=== PATIENT | female | born 1975 | race Caucasian/White ===

== ENCOUNTER → 2018-06-08 16:11 | Outpatient (CLI) | payer OTHER, SELFPAY | PROVIDERS: Family Provider Otolaryngology | DX: Z23 Encounter for immunization (principal) | CPT/HCPCS: 90471; 90686 ==

== ENCOUNTER 2018-10-06 11:28 | Emergency (ER) | payer OTHER, SELFPAY ==
[2018-10-06 11:33] VITALS: BP 114/75; PULSE 91; RESP 18; TEMP 36.6; O2SAT 100
[2018-10-06] MEDS: SODIUM CHLORIDE 0.9% 1,000 ML 1000 ML IV (12:03)
--- NOTE | 2018-10-06 12:05 | ED.ABDPAIN ---
HPI - Abdominal Pain <BALA Toro - Last Filed: 10/06/18 21:56> General Chief Complaint: Abdominal Pain Stated Complaint: PAIN BELOW STERNUM Time Seen by Provider: 10/06/18 12:04 Source: patient Mode of arrival: ambulatory Limitations: no limitations History of Present Illness HPI narrative: 43-year-old healthy female this is an everyday smoker here for complaint of a epigastric pain over the past 2 weeks. She denies any trauma to the area. She reports increased pain after eating. She does have nausea. A however no vomiting. No fevers no chills. No urinary symptoms. Last bowel movement was today and was normal. She has been tolerating p.o. intake. She states that her last alcohol intake was in July. Pain is reported as radiating into the right upper back area. MD complaint: abdominal pain Related Data Previous Rx's Medication Instructions Recorded hydrocodone-acetaminophen [[place]] 1 tab PO Q4-6H PRN #15 tab 10/06/18 ondansetron 4 mg PO BID-TID PRN #12 tab 10/06/18 Allergies Allergy/AdvReac Type Severity Reaction Status Date / Time Penicillins Allergy Intermediate Verified 10/06/18 13:20 prednisone Allergy Intermediate Verified 10/06/18 13:20 Review of Systems <BALA Toro - Last Filed: 10/06/18 21:56> Constitutional Denies chills, Denies fever(s), Denies lethargy and Denies weakness Eyes Denies change in vision, Denies eye discharge, Denies irritation and Denies loss of vision ENT Ears, Nose, Mouth, and Throat: Denies change in voice, Denies neck pain and Denies sore throat Cardiovascular Denies chest pain, Denies irregular heart rhythm, Denies lightheadedness, Denies palpitations, Denies dyspnea, Denies dyspnea on exertion and Denies orthopnea Respiratory Denies cough, Denies dyspnea, Denies dyspnea on exertion and Denies wheezing Gastrointestinal Gastrointestinal: Reports abdominal pain, Reports nausea and Denies vomiting Genitourinary Denies hematuria, Denies flank pain, Denies urinary incontinence and Denies urinary urgency Musculoskeletal Denies neck pain Integumentary/Breasts Denies pruritus, Denies erythema, Denies rash and Denies wounds Neurologic Denies confusion, Denies loss of vision and Denies weakness Psychiatric Denies anxiety, Denies confusion, Denies depression, Denies homicidal ideation and Denies suicidal ideation Endocrine Denies palpitations Hematologic/Lymphatic Denies easy bruising Allergic/Immunologic Denies wheezing PFSH <BALA Toro - Last Filed: 10/06/18 21:56> Social History Smoking Status: Current every day smoker Social History Smoking Status: Current every day smoker Exam <BALA Toro - Last Filed: 10/06/18 21:56> Initial Vital Signs Initial Vital Signs: Vital Signs Temperature 97.9 F 10/06/18 11:33 Pulse Rate 91 H 10/06/18 11:33 Respiratory Rate 18 10/06/18 11:33 Blood Pressure 114/75 10/06/18 11:33 Pulse Oximetry 100 10/06/18 11:33 Const General: cooperative and well developed Nutritional Appearance: well nourished Orientation: alert, awake, oriented x3 and not confused HENKY Mouth: oral mucosae normal and moist mucous membranes Eyes Conjunctivae: conjunctivae normal Sclera: sclerae normal Pupils: PERRL EOM: EOM intact bilaterally Resp Effort & Inspection: normal respiratory effort, able to speak in complete sentences, no respiratory distress and no use of accessory muscles Auscultation: clear to auscultation bilaterally, no rales, no rhonchi and no wheezes Cardio Rate: regular rate Rhythm: regular rhythm Heart Sounds: no click, no gallops, no murmurs and no rubs Pulses: normal peripheral pulses GI Inspection: non-distended Palpation: soft, no hepatosplenomegaly, No guarding, No pulsatile mass and tender ( Tenderness to epigastric area) Auscultation: normal bowel sounds General: No CVA tenderness Skin General: no rashes or lesions noted, No jaundice and No petechiae Neuro General: alert, oriented x3, gait normal and no focal motor deficits Speech: speech normal <Jesus Richard DO - Last Filed: 10/07/18 18:31> Initial Vital Signs Initial Vital Signs: Vital Signs Temperature 97.9 F 10/06/18 11:33 Pulse Rate 91 H 10/06/18 11:33 Respiratory Rate 18 10/06/18 11:33 Blood Pressure 114/75 10/06/18 11:33 Pulse Oximetry 100 10/06/18 11:33 Course <BALA Toro - Last Filed: 10/06/18 21:56> Orders Ordered: Discontinued Medications Sodium Chloride (Normal Saline 0.9%) 1,000 mls @ 1,000 mls/hr IV BOLUS ONE Stop: 10/06/18 12:43 Last Infusion: 10/06/18 13:20 Dose: 0 mls/hr Admin: 10/06/18 12:03 Dose: 1,000 mls/hr Vital Signs - 8 hr 10/06/18 11:33 Temperature 97.9 F Pulse Rate 91 H Respiratory Rate 18 Blood Pressure 114/75 Pulse Oximetry 100 <Jesus Richard DO - Last Filed: 10/07/18 18:31> Orders Ordered: Discontinued Medications Sodium Chloride (Normal Saline 0.9%) 1,000 mls @ 1,000 mls/hr IV BOLUS ONE Stop: 10/06/18 12:43 Last Infusion: 10/06/18 13:20 Dose: 0 mls/hr Admin: 10/06/18 12:03 Dose: 1,000 mls/hr Vital Signs - 8 hr 10/06/18 11:33 Temperature 97.9 F Pulse Rate 91 H Respiratory Rate 18 Blood Pressure 114/75 Pulse Oximetry 100 MDM - Abdominal Pain <BALA Toro - Last Filed: 10/06/18 21:56> Lab Data Result diagrams: 10/06/18 11:55 10/06/18 11:55 Lab Results 10/06/18 10/06/18 10/06/18 Range/Units 11:55 11:55 12:01 WBC 9.4 (4.5-11.0) X10^3/uL RBC 4.67 (4.0-5.2) X10^6/uL Hgb 14.2 (12.0-16.0) g/dL Hct 41.9 (36-46) % MCV 89.7 (80-100) fL MCH 30.5 (26-34) PG MCHC 34.0 (30-36) % RDW 13.2 (11.6-14.8) % Plt Count 292 (150-400) X10^3/uL Neut % (Auto) 69.4 (50-75) % Lymph % (Auto) 21.1 L (25-40) % [place] % (Auto) 6.6 (3-14) % Eos % (Auto) 2.1 (2-4) % Baso % (Auto) 0.8 (0-2) % Neut # (Auto) 6500 (1473-2915) /uL Lymph # (Auto) 2000 (6356-9628) /uL [place] # (Auto) 600 (0-900) /uL Eos # (Auto) 200 (0-450) /uL Baso # (Auto) 100 (0-100) /uL Sodium 140 (137-145) mmol/L Potassium 3.4 (3.4-5.1) mmol/L Chloride 103 (98-107) mmol/L Carbon Dioxide 28 (22-32) mmol/L BUN 17 (7-17) mg/dL Creatinine 0.70 (0.52-1.04) mg/dL Estimated GFR > 60.0 (>60) mL/min BUN/Creatinine Ratio 24.3 H (6-22) Glucose 57 L (70-100) mg/dL Calcium 9.3 (8.4-10.2) mg/dL Total Bilirubin 0.3 (0.2-1.3) mg/dL AST 22 (14-36) IU/L ALT 36 (9-52) IU/L Alkaline Phosphatase 73 (38-126) U/L Total Protein 7.4 (6.3-8.2) g/dL Albumin 4.4 (3.5-5.0) g/dL Globulin 3.0 (1.7-4.1) g/dL Albumin/Globulin Ratio 1.5 (1.0-2.8) Lipase 712 H (23-300) U/L Urine RBC 0-1/hpf (0-5/HPF) Urine WBC None seen (0-5/HPF) Ur Squamous Epith Cells 1-5 /hpf Urine Bacteria None seen (None) Ur Culture Indicated? Cult not indicated Point of care testing: Point of Care Testing Test Results Negative Urine Dip Bedside Urine Glucose Negative Bedside Urine Bilirubin - Negative Bedside Urine Ketone - Negative Urine Specific [place] 1.010 Bedside Urine Occult Blood +/- Bedside Urine pH 6.5 Bedside Urine Protein - Negative Bedside Urine Urobilinogen - Negative Bedside Urine Nitrite - Negative Bedside Urine Leukocytes - Negative Esterase Imaging Data US - abdomen: Radiologist's impression: [address] [address] Ultrasound Report Signed Patient: Hillary Malhotra [facility]#: [id number] : 1975Acct:[id number] Age/Sex: 43 / FDate of Service: 10/06/18 Loc: ED Accession Number: [id number] Procedure: US abdomen complete Ordering Provider: Zane Martinez PROCEDURE: US ABDOMEN COMPLETE INDICATIONS: EPIGASTRIC PAIN TECHNIQUE: Real-time scanning was performed of the abdominal and retroperitoneal organs, with image documentation. COMPARISON: None. FINDINGS: Liver: Liver is normal in size and homogeneous in echotexture. Gallbladder: Gallbladder is sonographically normal. No gallstones. No gallbladder wall thickening. No pericholecystic fluid. No sonographic Britt sign. Biliary ducts: Intrahepatic bile ducts are non-dilated. Extrahepatic bile duct caliber measures 1.7 mm. Normal is 6-7 mm or less in diameter, or 10 mm or less post-cholecystectomy. Pancreas: Visualized portions of the pancreas are sonographically normal. Spleen: Spleen is normal in size and homogeneous in echotexture. Kidneys: Kidneys are normal in size and echotexture. Right kidney measures 11.0 cm long; left kidney measures 10.8 cm long. No hydronephrosis or nephrolithiasis. No solid masses. Aorta: Visualized aorta is normal in caliber at less than 3 cm. Iliacs: Proximal common iliac arteries are normal in caliber at less than 2.5 cm. IVC: Intrahepatic inferior vena cava is patent. Miscellaneous: No free abdominal fluid. IMPRESSION: Normal abdominal sonogram. Dictated by: Omaira Gao MD, PhD on 10/06/2018 at 12:44 Approved by: Omaira Gao MD, PhD on 10/06/2018 at 12:45 [facility] Narrative Medical decision making narrative: CBC was obtained and was unremarkable. Chem panel shows elevated lipase at 700. abdominal ultrasound was obtained and was unremarkable. AST and ALT were unremarkable. alk-phos was normal. Signs and symptoms presents as acute pancreatitis. She is able to tolerate p.o. intake. will treat outpatient with clear liquid diet pain control and nausea medication. She is encouraged to follow up with primary care provider in the next day or 2 for re-evaluation. For any worsening symptoms return to the emergency room. <Jesus Richard, DO - Last Filed: 10/07/18 18:31> Lab Data Lab Results 10/06/18 10/06/18 10/06/18 Range/Units 11:55 11:55 12:01 WBC 9.4 (4.5-11.0) X10^3/uL RBC 4.67 (4.0-5.2) X10^6/uL Hgb 14.2 (12.0-16.0) g/dL Hct 41.9 (36-46) % MCV 89.7 (80-100) fL MCH 30.5 (26-34) PG MCHC 34.0 (30-36) % RDW 13.2 (11.6-14.8) % Plt Count 292 (150-400) X10^3/uL Neut % (Auto) 69.4 (50-75) % Lymph % (Auto) 21.1 L (25-40) % [place] % (Auto) 6.6 (3-14) % Eos % (Auto) 2.1 (2-4) % Baso % (Auto) 0.8 (0-2) % Neut # (Auto) 6500 (8235-6153) /uL Lymph # (Auto) 2000 (8487-6302) /uL [place] # (Auto) 600 (0-900) /uL Eos # (Auto) 200 (0-450) /uL Baso # (Auto) 100 (0-100) /uL Sodium 140 (137-145) mmol/L Potassium 3.4 (3.4-5.1) mmol/L Chloride 103 (98-107) mmol/L Carbon Dioxide 28 (22-32) mmol/L BUN 17 (7-17) mg/dL Creatinine 0.70 (0.52-1.04) mg/dL Estimated GFR > 60.0 (>60) mL/min BUN/Creatinine Ratio 24.3 H (6-22) Glucose 57 L (70-100) mg/dL Calcium 9.3 (8.4-10.2) mg/dL Total Bilirubin 0.3 (0.2-1.3) mg/dL AST 22 (14-36) IU/L ALT 36 (9-52) IU/L Alkaline Phosphatase 73 (38-126) U/L Total Protein 7.4 (6.3-8.2) g/dL Albumin 4.4 (3.5-5.0) g/dL Globulin 3.0 (1.7-4.1) g/dL Albumin/Globulin Ratio 1.5 (1.0-2.8) Lipase 712 H (23-300) U/L Urine RBC 0-1/hpf (0-5/HPF) Urine WBC None seen (0-5/HPF) Ur Squamous Epith Cells 1-5 /hpf Urine Bacteria None seen (None) Ur Culture Indicated? Cult not indicated Point of care testing: Point of Care Testing Test Results Negative Urine Dip Bedside Urine Glucose Negative Bedside Urine Bilirubin - Negative Bedside Urine Ketone - Negative Urine Specific [place] 1.010 Bedside Urine Occult Blood +/- Bedside Urine pH 6.5 Bedside Urine Protein - Negative Bedside Urine Urobilinogen - Negative Bedside Urine Nitrite - Negative Bedside Urine Leukocytes - Negative Esterase Discharge Plan Departure Patient Disposition: Home Clinical Impression: Acute pancreatitis Qualifiers: Pancreatitis type: other Acute pancreatitis complication: no infection or necrosis Qualified Code(s): K85.80 - Other acute pancreatitis without necrosis or infection Discharge Date/Time: 10/06/18 13:25 Interventions: ED Discharge Assessment Last Done: 10/06/18 13:24 Instructions: DI for Pancreatitis Activity Restrictions/Additional Instructions: laboratory results show increased lipase indicating acute pancreatitis. other laboratory results were unremarkable. Ultrasound of the abdomen was obtained and was negative for any acute findings. Clear liquid diet. follow up with her primary care provider in the next day or 2 for re-evaluation. [place] is prescribed for pain and use as directed. Zofran is prescribed to help with any nausea. For any worsening symptoms return to the emergency room. Prescriptions: New hydrocodone-acetaminophen [[place]] 5-325 mg tablet 1 tab PO Q4-6H PRN (Reason: pain) Qty: 15 RF: 0 ondansetron 4 mg tablet,disintegrating 4 mg PO BID-TID PRN (Reason: nausea and vomiting) Qty: 12 RF: 0 Referrals: [employer] [Provider Group] <Jesus Richard DO - Last Filed: 10/07/18 18:31> Cosign ED Attending Ekaterina Attestation: I was available for consultation during this patient's emergency department encounter
--- NOTE | 2018-10-06 12:11 | DI.US.S_ITS ---
PROCEDURE: US ABDOMEN COMPLETE INDICATIONS: EPIGASTRIC PAIN TECHNIQUE: Real-time scanning was performed of the abdominal and retroperitoneal organs, with image documentation. COMPARISON: None. FINDINGS: Liver: Liver is normal in size and homogeneous in echotexture. Gallbladder: Gallbladder is sonographically normal. No gallstones. No gallbladder wall thickening. No pericholecystic fluid. No sonographic Britt sign. Biliary ducts: Intrahepatic bile ducts are non-dilated. Extrahepatic bile duct caliber measures 1.7 mm. Normal is 6-7 mm or less in diameter, or 10 mm or less post-cholecystectomy. Pancreas: Visualized portions of the pancreas are sonographically normal. Spleen: Spleen is normal in size and homogeneous in echotexture. Kidneys: Kidneys are normal in size and echotexture. Right kidney measures 11.0 cm long; left kidney measures 10.8 cm long. No hydronephrosis or nephrolithiasis. No solid masses. Aorta: Visualized aorta is normal in caliber at less than 3 cm. Iliacs: Proximal common iliac arteries are normal in caliber at less than 2.5 cm. IVC: Intrahepatic inferior vena cava is patent. Miscellaneous: No free abdominal fluid. IMPRESSION: Normal abdominal sonogram. Dictated by: Omaira Gao MD, PhD on 10/06/2018 at 12:44 Approved by: Omaira Gao MD, PhD on 10/06/2018 at 12:45
[2018-10-06 12:14] LABS: Add Manual Diff / Slide Review NO; Basophils Absolute Auto 100 /uL (0-100); Basophils Percent Auto 0.8 % (0-2); Eosinophils Absolute Auto 200 /uL (0-450); Eosinophils Percent Auto 2.1 % (2-4); Hematocrit 41.9 % (36-46); Hemoglobin 14.2 g/dL (12.0-16.0); Lymphocytes Absolute Auto 2000 /uL (1100-4500); Lymphocytes Percent Auto 21.1 % (25-40); Mean Corpuscular Hemoglobin 30.5 PG (26-34); Mean Corpuscular Volume 89.7 fL (80-100); Monocytes Absolute Auto 600 /uL (0-900); Monocytes Percent Auto 6.6 % (3-14); Neutrophils Absolute Auto 6500 /uL (1500-7000); Neutrophils Percent Auto 69.4 % (50-75); Platelet Count 292 X10^3/uL (150-400); Red Blood Cell Count 4.67 X10^6/uL (4.0-5.2); Red Cell Distribution Width 13.2 % (11.6-14.8); White Blood Cell Count 9.4 X10^3/uL (4.5-11.0)
[2018-10-06 12:16] LABS: Alanine Aminotransferase 36 IU/L (9-52); Albumin 4.4 g/dL (3.5-5.0); Albumin Globulin Ratio 1.5 (1.0-2.8); Alkaline Phosphatase 73 U/L (38-126); Aspartate Aminotransferase 22 IU/L (14-36); BUN Creatinine Ratio 24.3 (6-22); Bilirubin Total 0.3 mg/dL (0.2-1.3); Blood Urea Nitrogen 17 mg/dL (7-17); Calcium 9.3 mg/dL (8.4-10.2); Carbon Dioxide 28 mmol/L (22-32); Chloride 103 mmol/L (98-107); Estimated Glomerular Filt Rate > 60.0 mL/min (>60); Glucose 57 mg/dL (70-100); HEMOLYSIS < 15 (0-50); Lipase 712 U/L (23-300); Potassium 3.4 mmol/L (3.4-5.1); Sodium 140 mmol/L (137-145); Total Protein 7.4 g/dL (6.3-8.2)
[2018-10-06 12:28] LABS: Bacteria Urine None Seen; WBC Urine None Seen (0-5/HPF)
[2018-10-06 12:37] LABS: Culture Indicated Urine Cult Not Indicated; RBC Urine 0-1/HPF (0-5/HPF); Squamous Epithelial Cell Urine 1-5 /HPF
--- NOTE | 2018-10-06 12:59 | ED_ITS ---
HPI - Abdominal Pain <BALA Toro - Last Filed: 10/06/18 21:56> General Chief Complaint: Abdominal Pain Stated Complaint: PAIN BELOW STERNUM Time Seen by Provider: 10/06/18 12:04 Source: patient Mode of arrival: ambulatory Limitations: no limitations History of Present Illness HPI narrative: 43-year-old healthy female this is an everyday smoker here for complaint of a epigastric pain over the past 2 weeks. She denies any trauma to the area. She reports increased pain after eating. She does have nausea. A however no vomiting. No fevers no chills. No urinary symptoms. Last bowel movement was today and was normal. She has been tolerating p.o. intake. She states that her last alcohol intake was in July. Pain is reported as radiating into the right upper back area. MD complaint: abdominal pain Related Data Previous Rx's Medication Instructions Recorded hydrocodone-acetaminophen [[place]] 1 tab PO Q4-6H PRN #15 tab 10/06/18 ondansetron 4 mg PO BID-TID PRN #12 tab 10/06/18 Allergies Allergy/AdvReac Type Severity Reaction Status Date / Time Penicillins Allergy Intermediate Verified 10/06/18 13:20 prednisone Allergy Intermediate Verified 10/06/18 13:20 Review of Systems <BALA Toro - Last Filed: 10/06/18 21:56> Constitutional Denies chills, Denies fever(s), Denies lethargy and Denies weakness Eyes Denies change in vision, Denies eye discharge, Denies irritation and Denies loss of vision ENT Ears, Nose, Mouth, and Throat: Denies change in voice, Denies neck pain and Denies sore throat Cardiovascular Denies chest pain, Denies irregular heart rhythm, Denies lightheadedness, Denies palpitations, Denies dyspnea, Denies dyspnea on exertion and Denies orthopnea Respiratory Denies cough, Denies dyspnea, Denies dyspnea on exertion and Denies wheezing Gastrointestinal Gastrointestinal: Reports abdominal pain, Reports nausea and Denies vomiting Genitourinary Denies hematuria, Denies flank pain, Denies urinary incontinence and Denies urinary urgency Musculoskeletal Denies neck pain Integumentary/Breasts Denies pruritus, Denies erythema, Denies rash and Denies wounds Neurologic Denies confusion, Denies loss of vision and Denies weakness Psychiatric Denies anxiety, Denies confusion, Denies depression, Denies homicidal ideation and Denies suicidal ideation Endocrine Denies palpitations Hematologic/Lymphatic Denies easy bruising Allergic/Immunologic Denies wheezing PFSH <BALA Toro - Last Filed: 10/06/18 21:56> Social History Smoking Status: Current every day smoker Social History Smoking Status: Current every day smoker Exam <BALA Toro - Last Filed: 10/06/18 21:56> Initial Vital Signs Initial Vital Signs: Vital Signs Temperature 97.9 F 10/06/18 11:33 Pulse Rate 91 H 10/06/18 11:33 Respiratory Rate 18 10/06/18 11:33 Blood Pressure 114/75 10/06/18 11:33 Pulse Oximetry 100 10/06/18 11:33 Const General: cooperative and well developed Nutritional Appearance: well nourished Orientation: alert, awake, oriented x3 and not confused HENTN Mouth: oral mucosae normal and moist mucous membranes Eyes Conjunctivae: conjunctivae normal Sclera: sclerae normal Pupils: PERRL EOM: EOM intact bilaterally Resp Effort & Inspection: normal respiratory effort, able to speak in complete sentences, no respiratory distress and no use of accessory muscles Auscultation: clear to auscultation bilaterally, no rales, no rhonchi and no wheezes Cardio Rate: regular rate Rhythm: regular rhythm Heart Sounds: no click, no gallops, no murmurs and no rubs Pulses: normal peripheral pulses GI Inspection: non-distended Palpation: soft, no hepatosplenomegaly, No guarding, No pulsatile mass and tend er ( Tenderness to epigastric area) Auscultation: normal bowel sounds General: No CVA tenderness Skin General: no rashes or lesions noted, No jaundice and No petechiae Neuro General: alert, oriented x3, gait normal and no focal motor deficits Speech: speech normal <Jesus Richard DO - Last Filed: 10/07/18 18:31> Initial Vital Signs Initial Vital Signs: Vital Signs Temperature 97.9 F 10/06/18 11:33 Pulse Rate 91 H 10/06/18 11:33 Respiratory Rate 18 10/06/18 11:33 Blood Pressure 114/75 10/06/18 11:33 Pulse Oximetry 100 10/06/18 11:33 Course <BALA Toro - Last Filed: 10/06/18 21:56> Orders Ordered: Discontinued Medications Sodium Chloride (Normal Saline 0.9%) 1,000 mls @ 1,000 mls/hr IV BOLUS ONE Stop: 10/06/18 12:43 Last Infusion: 10/06/18 13:20 Dose: 0 mls/hr Admin: 10/06/18 12:03 Dose: 1,000 mls/hr Vital Signs - 8 hr 10/06/18 11:33 Temperature 97.9 F Pulse Rate 91 H Respiratory Rate 18 Blood Pressure 114/75 Pulse Oximetry 100 <Jesus Richard DO - Last Filed: 10/07/18 18:31> Orders Ordered: Discontinued Medications Sodium Chloride (Normal Saline 0.9%) 1,000 mls @ 1,000 mls/hr IV BOLUS ONE Stop: 10/06/18 12:43 Last Infusion: 10/06/18 13:20 Dose: 0 mls/hr Admin: 10/06/18 12:03 Dose: 1,000 mls/hr Vital Signs - 8 hr 10/06/18 11:33 Temperature 97.9 F Pulse Rate 91 H Respiratory Rate 18 Blood Pressure 114/75 Pulse Oximetry 100 MDM - Abdominal Pain <BALA Toro - Last Filed: 10/06/18 21:56> Lab Data Result diagrams: 10/06/18 11:55 10/06/18 11:55 Lab Results 10/06/18 10/06/18 10/06/18 Range/Units 11:55 11:55 12:01 WBC 9.4 (4.5-11.0) X10^3/uL RBC 4.67 (4.0-5.2) X10^6/uL Hgb 14.2 (12.0-16.0) g/dL Hct 41.9 (36-46) % MCV 89.7 (80-100) fL MCH 30.5 (26-34) PG MCHC 34.0 (30-36) % RDW 13.2 (11.6-14.8) % Plt Count 292 (150-400) X10^3/uL Neut % (Auto) 69.4 (50-75) % Lymph % (Auto) 21.1 L (25-40) % [place] % (Auto) 6.6 (3-14) % Eos % (Auto) 2.1 (2-4) % Baso % (Auto) 0.8 (0-2) % Neut # (Auto) 6500 (8604-7330) /uL Lymph # (Auto) 2000 (9211-0400) /uL [place] # (Auto) 600 (0-900) /uL Eos # (Auto) 200 (0-450) /uL Baso # (Auto) 100 (0-100) /uL Sodium 140 (137-145) mmol/L Potassium 3.4 (3.4-5.1) mmol/L Chloride 103 (98-107) mmol/L Carbon Dioxide 28 (22-32) mmol/L BUN 17 (7-17) mg/dL Creatinine 0.70 (0.52-1.04) mg/dL Estimated GFR > 60.0 (>60) mL/min BUN/Creatinine Ratio 24.3 H (6-22) Glucose 57 L (70-100) mg/dL Calcium 9.3 (8.4-10.2) mg/dL Total Bilirubin 0.3 (0.2-1.3) mg/dL AST 22 (14-36) IU/L ALT 36 (9-52) IU/L Alkaline Phosphatase 73 (38-126) U/L Total Protein 7.4 (6.3-8.2) g/dL Albumin 4.4 (3.5-5.0) g/dL Globulin 3.0 (1.7-4.1) g/dL Albumin/Globulin Ratio 1.5 (1.0-2.8) Lipase 712 H (23-300) U/L Urine RBC 0-1/hpf (0-5/HPF) Urine WBC None seen (0-5/HPF) Ur Squamous Epith Cells 1-5 /hpf Urine Bacteria None seen (None) Ur Culture Indicated? Cult not indicated Point of care testing: Point of Care Testing Test Results Negative Urine Dip Bedside Urine Glucose Negative Bedside Urine Bilirubin - Negative Bedside Urine Ketone - Negative Urine Specific [place] 1.010 Bedside Urine Occult Blood +/- Bedside Urine pH 6.5 Bedside Urine Protein - Negative Bedside Urine Urobilinogen - Negative Bedside Urine Nitrite - Negative Bedside Urine Leukocytes - Negative Esterase Imaging Data US - abdomen: Radiologist's impression: [address] [address] Ultrasound Report Signed Patient: Hillary Malhotra MMR#: [id number] : 1975Acct:[id number] Age/Sex: 43 / FDate of Service: 10/06/18 Loc: ED Accession Number: [id number] Procedure: US abdomen complete Ordering Provider: Zane Martinez PROCEDURE: US ABDOMEN COMPLETE INDICATIONS: EPIGASTRIC PAIN TECHNIQUE: Real-time scanning was performed of the abdominal and retroperitoneal organs, with image documentation. COMPARISON: None. FINDINGS: Liver: Liver is normal in size and homogeneous in echotexture. Gallbladder: Gallbladder is sonographically normal. No gallstones. No gallbladder wall thickening. No pericholecystic fluid. No sonographic Britt sign. Biliary ducts: Intrahepatic bile ducts are non-dilated. Extrahepatic bile duct caliber measures 1.7 mm. Normal is 6-7 mm or less in diameter, or 10 mm or less post-cholecystectomy. Pancreas: Visualized portions of the pancreas are sonographically normal. Spleen: Spleen is normal in size and homogeneous in echotexture. Kidneys: Kidneys are normal in size and echotexture. Right kidney measures 11.0 cm long; left kidney measures 10.8 cm long. No hydronephrosis or nephrolithiasis. No solid masses. Aorta: Visualized aorta is normal in caliber at less than 3 cm. Iliacs: Proximal common iliac arteries are normal in caliber at less than 2.5 cm. IVC: Intrahepatic inferior vena cava is patent. Miscellaneous: No free abdominal fluid. IMPRESSION: Normal abdominal sonogram. Dictated by: Omaira Gao MD, PhD on 10/06/2018 at 12:44 Approved by: Omaira Gao MD, PhD on 10/06/2018 at 12:45 [facility] Narrative Medical decision making narrative: CBC was obtained and was unremarkable. Chem panel shows elevated lipase at 700. abdominal ultrasound was obtained and was unremarkable. AST and ALT were unremarkable. alk-phos was normal. Signs and symptoms presents as acute pancreatitis. She is able to tolerate p.o. intake. will treat outpatient with clear liquid diet pain control and nausea medication. She is encouraged to follow up with primary care provider in the next day or 2 for re-evaluation. For any worsening symptoms return to the emergency room. <Jesus Richard, DO - Last Filed: 10/07/18 18:31> Lab Data Lab Results 10/06/18 10/06/18 10/06/18 Range/Units 11:55 11:55 12:01 WBC 9.4 (4.5-11.0) X10^3/uL RBC 4.67 (4.0-5.2) X10^6/uL Hgb 14.2 (12.0-16.0) g/dL Hct 41.9 (36-46) % MCV 89.7 (80-100) fL MCH 30.5 (26-34) PG MCHC 34.0 (30-36) % RDW 13.2 (11.6-14.8) % Plt Count 292 (150-400) X10^3/uL Neut % (Auto) 69.4 (50-75) % Lymph % (Auto) 21.1 L (25-40) % [place] % (Auto) 6.6 (3-14) % Eos % (Auto) 2.1 (2-4) % Baso % (Auto) 0.8 (0-2) % Neut # (Auto) 6500 (1870-8564) /uL Lymph # (Auto) 2000 (6657-2257) /uL [place] # (Auto) 600 (0-900) /uL Eos # (Auto) 200 (0-450) /uL Baso # (Auto) 100 (0-100) /uL Sodium 140 (137-145) mmol/L Potassium 3.4 (3.4-5.1) mmol/L Chloride 103 (98-107) mmol/L Carbon Dioxide 28 (22-32) mmol/L BUN 17 (7-17) mg/dL Creatinine 0.70 (0.52-1.04) mg/dL Estimated GFR > 60.0 (>60) mL/min BUN/Creatinine Ratio 24.3 H (6-22) Glucose 57 L (70-100) mg/dL Calcium 9.3 (8.4-10.2) mg/dL Total Bilirubin 0.3 (0.2-1.3) mg/dL AST 22 (14-36) IU/L ALT 36 (9-52) IU/L Alkaline Phosphatase 73 (38-126) U/L Total Protein 7.4 (6.3-8.2) g/dL Albumin 4.4 (3.5-5.0) g/dL Globulin 3.0 (1.7-4.1) g/dL Albumin/Globulin Ratio 1.5 (1.0-2.8) Lipase 712 H (23-300) U/L Urine RBC 0-1/hpf (0-5/HPF) Urine WBC None seen (0-5/HPF) Ur Squamous Epith Cells 1-5 /hpf Urine Bacteria None seen (None) Ur Culture Indicated? Cult not indicated Point of care testing: Point of Care Testing Test Results Negative Urine Dip Bedside Urine Glucose Negative Bedside Urine Bilirubin - Negative Bedside Urine Ketone - Negative Urine Specific [place] 1.010 Bedside Urine Occult Blood +/- Bedside Urine pH 6.5 Bedside Urine Protein - Negative Bedside Urine Urobilinogen - Negative Bedside Urine Nitrite - Negative Bedside Urine Leukocytes - Negative Esterase Discharge Plan Departure Patient Disposition: Home Clinical Impression: Acute pancreatitis Qualifiers: Pancreatitis type: other Acute pancreatitis complication: no infection or necrosis Qualified Code(s): K85.80 - Other acute pancreatitis without necrosis or infection Discharge Date/Time: 10/06/18 13:25 Interventions: ED Discharge Assessment Last Done: 10/06/18 13:24 Instructions: DI for Pancreatitis Activity Restrictions/Additional Instructions: laboratory results show increased lipase indicating acute pancreatitis. other laboratory results were unremarkable. Ultrasound of the abdomen was obtained and was negative for any acute findings. Clear liquid diet. follow up with her primary care provider in the next day or 2 for re-evaluation. [place] is prescribed for pain and use as directed. Zofran is prescribed to help with any nausea. For any worsening symptoms return to the emergency room. Prescriptions: New hydrocodone-acetaminophen [[place]] 5-325 mg tablet 1 tab PO Q4-6H PRN (Reason: pain) Qty: 15 RF: 0 ondansetron 4 mg tablet,disintegrating 4 mg PO BID-TID PRN (Reason: nausea and vomiting) Qty: 12 RF: 0 Referrals: [facility] [Provider Group] <Jesus Richard DO - Last Filed: 10/07/18 18:31> Cosign ED Attending Ekaterina Attestation: I was available for consultation during this patient's emergency department encounter
[2018-10-06 13:24] VITALS: BP 105/63; PULSE 61; TEMP 36.4; O2SAT 98
== END 2018-10-06 13:25 | disposition home or self-care (01) ==
PROVIDERS: Emergency Medicine; Emergency Provider Nurse Practitioner Family
DX: K85.80 Other acute pancreatitis without necrosis or infection (principal)
CPT/HCPCS: 36591; 76700; 80053; 81003; 81015; 81025; 83690; 85025; 96360; 99283; 99284

== ENCOUNTER → 2018-12-13 13:42 | Outpatient (CLI) | payer OTHER, SELFPAY ==
[2018-12-13 15:39] LABS: Alanine Aminotransferase 31 IU/L (9-52); Albumin 4.2 g/dL (3.5-5.0); Albumin Globulin Ratio 1.9 (1.0-2.8); Alkaline Phosphatase 62 U/L (38-126); Aspartate Aminotransferase 21 IU/L (14-36); Bilirubin Total 0.2 mg/dL (0.2-1.3); Bilirubin Unconjugated 0.2 mg/dL (0.0-1.1); Globulin 2.2 g/dL (1.7-4.1); HEMOLYSIS < 15 (0-50); Lipase 585 U/L (23-300); Total Protein 6.4 g/dL (6.3-8.2)
[2018-12-16 09:27] LABS: IgG Subclass 1 454 mg/dL (382-929); IgG Subclass 2 263 mg/dL (241-700); IgG Subclass 3 42 mg/dL (22-178); IgG Subclass 4 14.7 mg/dL (4.0-86.0); IgG Total 817 mg/dL (694-1618)
== END ==
PROVIDERS: PCP Family Medicine; Visit Provider Internal Medicine Gastroenterology
DX: R74.8 Abnormal levels of other serum enzymes (principal); R10.13 Epigastric pain
CPT/HCPCS: 36415; 80076; 82784; 82787; 83690

== ENCOUNTER 2018-12-31 05:03 | Inpatient (IN) | payer OTHER, SELFPAY ==
[2018-12-31] VITALS (7 sets, daily range): BP systolic 92–109; BP diastolic 53–68; PULSE 55–83; RESP 16–18; TEMP 36.4–36.9; O2SAT 98–100; BMI 22.1; BMI 22.8
--- NOTE | 2018-12-31 05:21 | DI.US.S_ITS ---
PROCEDURE: US ABDOMEN LIMITED INDICATIONS: SEVERE EPIGASTRIC PAIN TECHNIQUE: Real-time focused scanning was performed of the abdomen, with image documentation. COMPARISON: None. FINDINGS: Image portions of the liver appear to be within normal limits. The gallbladder is within normal limits without cholelithiasis or gallbladder wall inflammation. The common bile duct is within normal limits and measures approximately 2 mm in diameter. Mild prominence of the main pancreatic duct is identified within the body and tail, not well characterized. Otherwise, the pancreas is unremarkable. There is a focus of decreased echogenicity within the region of the head of the pancreas, which is not well evaluated. The right kidney is not adequately imaged. The abdominal aorta and inferior vena cava were also not adequately imaged. IMPRESSION: 1. Questionable pancreatic lesion with prominence of the main pancreatic duct. Contrast enhanced CT of the abdomen is recommended for further evaluation. 2. No cholelithiasis or acute cholecystitis. 3. No free fluid within the abdomen. Note: The preliminary [facility] report and the final report are concordant. Dictated by: Sg Mcdonough M.D. on 12/31/2018 at 13:36 Approved by: Sg Mcdonough M.D. on 12/31/2018 at 13:45
--- NOTE | 2018-12-31 05:23 | ED.ABDPAIN ---
HPI - Abdominal Pain <Ciro Roberson DO - Last Filed: 12/31/18 23:41> General Chief Complaint: Abdominal Pain Stated Complaint: pancreatitis Time Seen by Provider: 12/31/18 05:05 Source: patient Mode of arrival: ambulatory Limitations: no limitations History of Present Illness HPI narrative: 43F smoker with history of epigastric pain presents with upper abdominal pain and radiation to her back. She denies fever but has had chills and nausea. Pain is worse with food and drink. She has had a history of abnormal lipase but denies much in the way of alcohol or gallbladder disease. She has been seen and evaluated under similar circumstances as recently as September and had advanced imaging without any true or obvious etiology her pancreatic enzyme elevation Related Data Previous Rx's Medication Instructions Recorded hydrocodone-acetaminophen [Prole] 1 tab PO Q4-6H PRN #15 tab 10/06/18 ondansetron 4 mg PO BID-TID PRN #12 tab 10/06/18 [id number] [Creon] 1 cap PO TID #90 cap 01/07/19 Allergies Allergy/AdvReac Type Severity Reaction Status Date / Time Penicillins Allergy Intermediate Verified 10/06/18 13:20 prednisone Allergy Intermediate Verified 10/06/18 13:20 Review of Systems <Ciro Roberson DO - Last Filed: 12/31/18 23:41> Review of Systems ROS Unobtainable: All systems reviewed & are unremarkable except as noted in HPI and below Constitutional Denies chills, Denies fever(s), Denies lethargy and Denies weakness Eyes Denies change in vision, Denies eye discharge, Denies irritation and Denies loss of vision ENT Ears, Nose, Mouth, and Throat: Denies change in voice, Denies neck pain and Denies sore throat Cardiovascular Denies chest pain, Denies irregular heart rhythm, Denies lightheadedness, Denies palpitations, Denies dyspnea, Denies dyspnea on exertion and Denies orthopnea Respiratory Denies cough, Denies dyspnea, Denies dyspnea on exertion and Denies wheezing Gastrointestinal Gastrointestinal: Reports abdominal pain, Denies change in bowel habits, Denies diarrhea, Reports nausea and Reports vomiting Genitourinary Denies hematuria, Denies flank pain, Denies urinary incontinence and Denies urinary urgency Musculoskeletal Denies neck pain Integumentary/Breasts Denies pruritus, Denies erythema, Denies rash and Denies wounds Neurologic Denies confusion, Denies loss of vision and Denies weakness Psychiatric Denies anxiety, Denies confusion, Denies depression, Denies homicidal ideation and Denies suicidal ideation Endocrine Denies palpitations Hematologic/Lymphatic Denies easy bruising Allergic/Immunologic Denies wheezing PFSH <DO Mello Al Last Filed: 12/31/18 23:41> Social History household members: spouse Smoking Status: Current every day smoker alcohol intake: current Social History household members: spouse and children Smoking Status: Current every day smoker alcohol intake: current Exam <DO Mello Al Last Filed: 12/31/18 23:41> Narrative Exam Narrative: GENERAL: 43-year-old female, obviously uncomfortable clutching her upper abdomen HEAD: Atraumatic. Normocephalic. No temporal or scalp tenderness. EYES: Pupils equal round and reactive. Extraocular motions intact. No scleral icterus. No injection or drainage. ENT: Nose without bleeding, purulent drainage or septal hematoma. Throat without erythema, tonsillar hypertrophy or exudate. Uvula midline. Airway patent. NECK: Trachea midline. No JVD or lymphadenopathy. Supple, nontender, no meningeal signs. CARDIOVASCULAR: Regular rate and rhythm without murmurs, gallops, or rubs. RESPIRATORY: Clear to auscultation. Breath sounds equal bilaterally. No wheezes, rales, or rhonchi. GASTROINTESTINAL: Abdomen soft, severely tender in the epigastrium, nondistended. No hepato-splenomegaly, or palpable masses. No guarding. EXTREMITIES: No clubbing, cyanosis, or edema. No joint tenderness, effusion, or edema noted. BACK: Nontender without deformity or crepitance. No flank tenderness. NEURO: AOx3. SKIN: No rash or erythema. Initial Vital Signs Initial Vital Signs: Vital Signs Temperature 98.4 F 12/31/18 05:05 Pulse Rate 83 12/31/18 05:05 Respiratory Rate 16 12/31/18 05:05 Blood Pressure 109/68 12/31/18 05:05 Pulse Oximetry 99 12/31/18 05:05 <Stephany Wooten DO - Last Filed: 01/25/19 07:05> Initial Vital Signs Initial Vital Signs: Vital Signs Temperature 98.4 F 12/31/18 05:05 Pulse Rate 83 12/31/18 05:05 Respiratory Rate 16 12/31/18 05:05 Blood Pressure 109/68 12/31/18 05:05 Pulse Oximetry 99 12/31/18 05:05 Course <Ciro Roberson, DO - Last Filed: 12/31/18 23:41> Orders Ordered: Discontinued Medications Acetaminophen (Tylenol) 975 mg PO NOW ONE Stop: 01/01/19 05:32 Last Admin: 01/01/19 06:44 Dose: Not Given Acetaminophen (Tylenol) 650 mg PO NOW ONE Stop: 01/01/19 05:32 Last Admin: 01/01/19 05:53 Dose: 650 mg Acetaminophen (Tylenol) 975 mg PO Q6H PRN PRN Reason: Pain, Mild (1-3) Last Admin: 01/05/19 08:37 Dose: 975 mg Admin: 01/02/19 07:40 Dose: 975 mg Acetaminophen/Butalbital/Caffeine (Fioricet) 1 each PO Q4HR PRN PRN Reason: Headache Hydrocodone Bitart/Acetaminophen (Prole 5/325) 1 tab PO Q4HR PRN PRN Reason: Pain, Moderate (4-6) Last Admin: 01/03/19 13:29 Dose: 1 tab Admin: 01/02/19 21:59 Dose: 1 tab Lipase/Protease/Amylase (Zenpep Dr 5,000 Units) 1 cap PO TIDWM TANK Last Admin: 01/07/19 12:27 Dose: 1 cap Admin: 01/07/19 08:31 Dose: 1 cap Admin: 01/06/19 17:19 Dose: 1 cap Admin: 01/06/19 12:04 Dose: 1 cap Al Hydrox/Mg Hydrox/Simethicone 20 ml/ Lidocaine HCl 15 ml 0 ml PO NOW ONE Stop: 12/31/18 05:19 Last Admin: 12/31/18 05:39 Dose: 35 ml Docusate Sodium (Colace) 100 mg PO BID PRN PRN Reason: Constipation Last Admin: 01/05/19 09:43 Dose: 100 mg Admin: 01/02/19 04:45 Dose: 100 mg Enoxaparin Sodium (Lovenox) 40 mg SUBCUT DAILY TANK Last Admin: 01/07/19 08:32 Dose: 40 mg Admin: 01/06/19 09:56 Dose: 40 mg Admin: 01/05/19 08:37 Dose: 40 mg Admin: 01/04/19 09:58 Dose: 40 mg Admin: 01/03/19 11:07 Dose: 40 mg Admin: 01/02/19 09:19 Dose: 40 mg Hydromorphone HCl (Dilaudid) 1 mg IV NOW ONE Stop: 12/31/18 05:40 Last Admin: 12/31/18 05:40 Dose: 1 mg Sodium Chloride (Normal Saline 0.9%) 500 mls @ 1,000 mls/hr IV BOLUS ONE Stop: 12/31/18 05:47 Last Admin: 12/31/18 05:56 Dose: Not Given Sodium Chloride (Normal Saline 0.9%) 1,000 mls @ 1,000 mls/hr IV BOLUS PRN PRN Reason: Fluid replacement Last Infusion: 12/31/18 07:27 Dose: 0 mls/hr Admin: 12/31/18 05:42 Dose: 1,000 mls/hr Sodium Chloride (Normal Saline 0.9%) 1,000 mls @ 125 mls/hr IV CONT TANK Last Admin: 01/07/19 07:17 Dose: 125 mls/hr Infusion: 01/07/19 07:17 Dose: 125 mls/hr Admin: 01/06/19 23:29 Dose: 125 mls/hr Infusion: 01/06/19 13:44 Dose: 125 mls/hr Admin: 01/06/19 05:44 Dose: 125 mls/hr Infusion: 01/06/19 04:50 Dose: 125 mls/hr Admin: 01/05/19 20:50 Dose: 125 mls/hr Infusion: 01/05/19 20:45 Dose: 125 mls/hr Admin: 01/05/19 12:45 Dose: 125 mls/hr Infusion: 01/05/19 11:34 Dose: 125 mls/hr Admin: 01/05/19 03:34 Dose: 125 mls/hr Infusion: 01/05/19 03:34 Dose: 125 mls/hr Admin: 01/04/19 19:47 Dose: 125 mls/hr Infusion: 01/04/19 11:53 Dose: 125 mls/hr Admin: 01/04/19 03:53 Dose: 125 mls/hr Infusion: 01/04/19 03:53 Dose: 125 mls/hr Admin: 01/03/19 20:11 Dose: 125 mls/hr Infusion: 01/03/19 15:56 Dose: 125 mls/hr Admin: 01/03/19 07:56 Dose: 125 mls/hr Infusion: 01/03/19 07:56 Dose: 125 mls/hr Admin: 01/02/19 23:56 Dose: 125 mls/hr Infusion: 01/02/19 23:56 Dose: 125 mls/hr Admin: 01/02/19 15:58 Dose: 125 mls/hr Infusion: 01/02/19 15:57 Dose: 125 mls/hr Admin: 01/02/19 07:57 Dose: 125 mls/hr Infusion: 01/02/19 07:57 Dose: 125 mls/hr Admin: 01/01/19 23:59 Dose: 125 mls/hr Infusion: 01/01/19 23:34 Dose: 0 mls/hr Admin: 01/01/19 15:33 Dose: 125 mls/hr Infusion: 01/01/19 13:12 Dose: 125 mls/hr Infusion: 01/01/19 08:18 Dose: 125 mls/hr Admin: 01/01/19 05:43 Dose: 150 mls/hr Infusion: 01/01/19 05:41 Dose: 150 mls/hr Admin: 12/31/18 23:00 Dose: 150 mls/hr Infusion: 12/31/18 22:58 Dose: 150 mls/hr Admin: 12/31/18 16:17 Dose: 150 mls/hr Infusion: 12/31/18 16:17 Dose: 150 mls/hr Admin: 12/31/18 09:50 Dose: 150 mls/hr Morphine Sulfate (Morphine) 2 mg IV Q3HR PRN PRN Reason: Pain, Moderate (4-6) Last Admin: 01/02/19 01:42 Dose: 2 mg Admin: 01/01/19 19:54 Dose: 2 mg Admin: 01/01/19 02:07 Dose: 2 mg Admin: 12/31/18 23:00 Dose: 2 mg Admin: 12/31/18 19:19 Dose: 2 mg Morphine Sulfate (Morphine) 2 mg IV Q3H PRN PRN Reason: Pain, Moderate (4-6) Last Admin: 01/05/19 22:16 Dose: 2 mg Admin: 01/05/19 03:36 Dose: 2 mg Admin: 01/04/19 22:30 Dose: 2 mg Admin: 01/04/19 06:03 Dose: 2 mg Admin: 01/03/19 21:18 Dose: 2 mg Ondansetron HCl (Zofran) 4 mg IV NOW ONE Stop: 12/31/18 05:19 Last Admin: 12/31/18 05:38 Dose: 4 mg Ondansetron HCl (Zofran) 4 mg IV Q6HR PRN PRN Reason: Nausea And Vomiting Last Admin: 01/04/19 19:47 Dose: 4 mg Pantoprazole Sodium (Protonix) 40 mg IV NOW ONE Stop: 12/31/18 05:19 Last Admin: 12/31/18 05:38 Dose: 40 mg Sennosides (Senna) 8.6 mg PO BID PRN PRN Reason: Constipation Last Admin: 01/05/19 09:43 Dose: 8.6 mg Vital Signs - 8 hr 12/31/18 15:45 12/31/18 18:00 12/31/18 20:00 Temperature 98.1 F 97.5 F L Pulse Rate 62 57 L Respiratory Rate 18 18 Blood Pressure 100/54 L 92/53 L Pulse Oximetry 98 99 <Stephany Wooten DO - Last Filed: 01/25/19 07:05> Orders Ordered: Discontinued Medications Acetaminophen (Tylenol) 975 mg PO NOW ONE Stop: 01/01/19 05:32 Last Admin: 01/01/19 06:44 Dose: Not Given Acetaminophen (Tylenol) 650 mg PO NOW ONE Stop: 01/01/19 05:32 Last Admin: 01/01/19 05:53 Dose: 650 mg Acetaminophen (Tylenol) 975 mg PO Q6H PRN PRN Reason: Pain, Mild (1-3) Last Admin: 01/05/19 08:37 Dose: 975 mg Admin: 01/02/19 07:40 Dose: 975 mg Acetaminophen/Butalbital/Caffeine (Fioricet) 1 each PO Q4HR PRN PRN Reason: Headache Hydrocodone Bitart/Acetaminophen (Prole 5/325) 1 tab PO Q4HR PRN PRN Reason: Pain, Moderate (4-6) Last Admin: 01/03/19 13:29 Dose: 1 tab Admin: 01/02/19 21:59 Dose: 1 tab Lipase/Protease/Amylase (Zenpep Dr 5,000 Units) 1 cap PO TIDWM [facility] Last Admin: 01/07/19 12:27 Dose: 1 cap Admin: 01/07/19 08:31 Dose: 1 cap Admin: 01/06/19 17:19 Dose: 1 cap Admin: 01/06/19 12:04 Dose: 1 cap Al Hydrox/Mg Hydrox/Simethicone 20 ml/ Lidocaine HCl 15 ml 0 ml PO NOW ONE Stop: 12/31/18 05:19 Last Admin: 12/31/18 05:39 Dose: 35 ml Docusate Sodium (Colace) 100 mg PO BID PRN PRN Reason: Constipation Last Admin: 01/05/19 09:43 Dose: 100 mg Admin: 01/02/19 04:45 Dose: 100 mg Enoxaparin Sodium (Lovenox) 40 mg SUBCUT DAILY [facility] Last Admin: 01/07/19 08:32 Dose: 40 mg Admin: 01/06/19 09:56 Dose: 40 mg Admin: 01/05/19 08:37 Dose: 40 mg Admin: 01/04/19 09:58 Dose: 40 mg Admin: 01/03/19 11:07 Dose: 40 mg Admin: 01/02/19 09:19 Dose: 40 mg Hydromorphone HCl (Dilaudid) 1 mg IV NOW ONE Stop: 12/31/18 05:40 Last Admin: 12/31/18 05:40 Dose: 1 mg Sodium Chloride (Normal Saline 0.9%) 500 mls @ 1,000 mls/hr IV BOLUS ONE Stop: 12/31/18 05:47 Last Admin: 12/31/18 05:56 Dose: Not Given Sodium Chloride (Normal Saline 0.9%) 1,000 mls @ 1,000 mls/hr IV BOLUS PRN PRN Reason: Fluid replacement Last Infusion: 12/31/18 07:27 Dose: 0 mls/hr Admin: 12/31/18 05:42 Dose: 1,000 mls/hr Sodium Chloride (Normal Saline 0.9%) 1,000 mls @ 125 mls/hr IV CONT TANK Last Admin: 01/07/19 07:17 Dose: 125 mls/hr Infusion: 01/07/19 07:17 Dose: 125 mls/hr Admin: 01/06/19 23:29 Dose: 125 mls/hr Infusion: 01/06/19 13:44 Dose: 125 mls/hr Admin: 01/06/19 05:44 Dose: 125 mls/hr Infusion: 01/06/19 04:50 Dose: 125 mls/hr Admin: 01/05/19 20:50 Dose: 125 mls/hr Infusion: 01/05/19 20:45 Dose: 125 mls/hr Admin: 01/05/19 12:45 Dose: 125 mls/hr Infusion: 01/05/19 11:34 Dose: 125 mls/hr Admin: 01/05/19 03:34 Dose: 125 mls/hr Infusion: 01/05/19 03:34 Dose: 125 mls/hr Admin: 01/04/19 19:47 Dose: 125 mls/hr Infusion: 01/04/19 11:53 Dose: 125 mls/hr Admin: 01/04/19 03:53 Dose: 125 mls/hr Infusion: 01/04/19 03:53 Dose: 125 mls/hr Admin: 01/03/19 20:11 Dose: 125 mls/hr Infusion: 01/03/19 15:56 Dose: 125 mls/hr Admin: 01/03/19 07:56 Dose: 125 mls/hr Infusion: 01/03/19 07:56 Dose: 125 mls/hr Admin: 01/02/19 23:56 Dose: 125 mls/hr Infusion: 01/02/19 23:56 Dose: 125 mls/hr Admin: 01/02/19 15:58 Dose: 125 mls/hr Infusion: 01/02/19 15:57 Dose: 125 mls/hr Admin: 01/02/19 07:57 Dose: 125 mls/hr Infusion: 01/02/19 07:57 Dose: 125 mls/hr Admin: 01/01/19 23:59 Dose: 125 mls/hr Infusion: 01/01/19 23:34 Dose: 0 mls/hr Admin: 01/01/19 15:33 Dose: 125 mls/hr Infusion: 01/01/19 13:12 Dose: 125 mls/hr Infusion: 01/01/19 08:18 Dose: 125 mls/hr Admin: 01/01/19 05:43 Dose: 150 mls/hr Infusion: 01/01/19 05:41 Dose: 150 mls/hr Admin: 12/31/18 23:00 Dose: 150 mls/hr Infusion: 12/31/18 22:58 Dose: 150 mls/hr Admin: 12/31/18 16:17 Dose: 150 mls/hr Infusion: 12/31/18 16:17 Dose: 150 mls/hr Admin: 12/31/18 09:50 Dose: 150 mls/hr Morphine Sulfate (Morphine) 2 mg IV Q3HR PRN PRN Reason: Pain, Moderate (4-6) Last Admin: 01/02/19 01:42 Dose: 2 mg Admin: 01/01/19 19:54 Dose: 2 mg Admin: 01/01/19 02:07 Dose: 2 mg Admin: 12/31/18 23:00 Dose: 2 mg Admin: 12/31/18 19:19 Dose: 2 mg Morphine Sulfate (Morphine) 2 mg IV Q3H PRN PRN Reason: Pain, Moderate (4-6) Last Admin: 01/05/19 22:16 Dose: 2 mg Admin: 01/05/19 03:36 Dose: 2 mg Admin: 01/04/19 22:30 Dose: 2 mg Admin: 01/04/19 06:03 Dose: 2 mg Admin: 01/03/19 21:18 Dose: 2 mg Ondansetron HCl (Zofran) 4 mg IV NOW ONE Stop: 12/31/18 05:19 Last Admin: 12/31/18 05:38 Dose: 4 mg Ondansetron HCl (Zofran) 4 mg IV Q6HR PRN PRN Reason: Nausea And Vomiting Last Admin: 01/04/19 19:47 Dose: 4 mg Pantoprazole Sodium (Protonix) 40 mg IV NOW ONE Stop: 12/31/18 05:19 Last Admin: 12/31/18 05:38 Dose: 40 mg Sennosides (Senna) 8.6 mg PO BID PRN PRN Reason: Constipation Last Admin: 01/05/19 09:43 Dose: 8.6 mg Vital Signs - 8 hr 12/31/18 15:45 12/31/18 18:00 12/31/18 20:00 Temperature 98.1 F 97.5 F L Pulse Rate 62 57 L Respiratory Rate 18 18 Blood Pressure 100/54 L 92/53 L Pulse Oximetry 98 99 MDM - Abdominal Pain <Ciro Roberson DO - Last Filed: 12/31/18 23:41> Lab Data Result diagrams: 01/07/19 06:17 01/07/19 06:17 Lab Results 12/31/18 12/31/18 12/31/18 Range/Units 05:25 05:25 05:25 WBC 10.3 (4.5-11.0) X10^3/uL RBC 4.69 (4.0-5.2) X10^6/uL Hgb 14.2 (12.0-16.0) g/dL Hct 42.6 (36-46) % MCV 90.8 (80-100) fL MCH 30.3 (26-34) PG MCHC 33.3 (30-36) % RDW 13.1 (11.6-14.8) % Plt Count 309 (150-400) X10^3/uL Neut % (Auto) 62.2 (50-75) % Lymph % (Auto) 25.4 (25-40) % [place] % (Auto) 8.2 (3-14) % Eos % (Auto) 3.3 (2-4) % Baso % (Auto) 0.9 (0-2) % Neut # (Auto) 6400 (9897-0892) /uL Lymph # (Auto) 2600 (0745-7909) /uL [place] # (Auto) 800 (0-900) /uL Eos # (Auto) 300 (0-450) /uL Baso # (Auto) 100 (0-100) /uL Sodium 140 (137-145) mmol/L Potassium 3.6 (3.4-5.1) mmol/L Chloride 100 (98-107) mmol/L Carbon Dioxide 28 (22-32) mmol/L BUN 17 (7-17) mg/dL Creatinine 0.80 (0.52-1.04) mg/dL Estimated GFR > 60.0 (>60) mL/min BUN/Creatinine Ratio 21.3 (6-22) Glucose 96 (70-100) mg/dL Calcium 9.4 (8.4-10.2) mg/dL Magnesium (1.6-2.3) mg/dL Total Bilirubin 0.2 (0.2-1.3) mg/dL AST 19 (14-36) IU/L ALT 20 (9-52) IU/L Alkaline Phosphatase 74 (38-126) U/L Lactate Dehydrogenase 379 (313-618) U/L Total Protein 7.5 (6.3-8.2) g/dL Albumin 4.5 (3.5-5.0) g/dL Globulin 3.0 (1.7-4.1) g/dL Albumin/Globulin Ratio 1.5 (1.0-2.8) Triglycerides (35-150) mg/dL Cholesterol (140-199) mg/dL LDL Cholesterol, Calc (<100) mg/dL HDL Cholesterol (40-60) mg/dL Lipase 8383 H (23-300) U/L Procalcitonin (<0.5) ng/mL Urine Color Urine Appearance Urine pH (4.5-8.0) Ur Specific [place] (1.000-1.035) Urine Protein (Negative) Urine Glucose (UA) (Negative) g/dL Urine Ketones (NEGATIVE) Urine Occult Blood (Negative) Urine Nitrate (Negative) Urine Bilirubin (NEGATIVE) Urine Urobilinogen (0.2) E.U./dL Ur Leukocyte Esterase (NEGATIVE) 12/31/18 12/31/18 12/31/18 Range/Units 11:30 11:50 12:00 WBC 8.0 (4.5-11.0) X10^3/uL RBC 4.13 (4.0-5.2) X10^6/uL Hgb 12.7 (12.0-16.0) g/dL Hct 37.6 (36-46) % MCV 91.1 (80-100) fL MCH 30.8 (26-34) PG MCHC 33.8 (30-36) % RDW 13.0 (11.6-14.8) % Plt Count 263 (150-400) X10^3/uL Neut % (Auto) 55.4 (50-75) % Lymph % (Auto) 32.5 (25-40) % [place] % (Auto) 8.1 (3-14) % Eos % (Auto) 3.6 (2-4) % Baso % (Auto) 0.4 (0-2) % Neut # (Auto) 4400 (9212-5060) /uL Lymph # (Auto) 2600 (8902-1024) /uL [place] # (Auto) 600 (0-900) /uL Eos # (Auto) 300 (0-450) /uL Baso # (Auto) 0 (0-100) /uL Sodium 137 (137-145) mmol/L Potassium 4.0 (3.4-5.1) mmol/L Chloride 105 (98-107) mmol/L Carbon Dioxide 25 (22-32) mmol/L BUN 12 (7-17) mg/dL Creatinine 0.70 (0.52-1.04) mg/dL Estimated GFR > 60.0 (>60) mL/min BUN/Creatinine Ratio 17.1 (6-22) Glucose 85 (70-100) mg/dL Calcium 8.1 L (8.4-10.2) mg/dL Magnesium (1.6-2.3) mg/dL Total Bilirubin (0.2-1.3) mg/dL AST (14-36) IU/L ALT (9-52) IU/L Alkaline Phosphatase (38-126) U/L Lactate Dehydrogenase (313-618) U/L Total Protein (6.3-8.2) g/dL Albumin (3.5-5.0) g/dL Globulin (1.7-4.1) g/dL Albumin/Globulin Ratio (1.0-2.8) Triglycerides (35-150) mg/dL Cholesterol (140-199) mg/dL LDL Cholesterol, Calc (<100) mg/dL HDL Cholesterol (40-60) mg/dL Lipase (23-300) U/L Procalcitonin (<0.5) ng/mL Urine Color Yellow Urine Appearance Clear Urine pH 7.5 (4.5-8.0) Ur Specific [place] 1.010 (1.000-1.035) Urine Protein Negative (Negative) Urine Glucose (UA) Negative (Negative) g/dL Urine Ketones Negative (NEGATIVE) Urine Occult Blood Trace-lysed (Negative) Urine Nitrate Negative (Negative) Urine Bilirubin Negative (NEGATIVE) Urine Urobilinogen 0.2 (0.2) E.U./dL Ur Leukocyte Esterase Negative (NEGATIVE) 01/01/19 01/02/19 01/02/19 Range/Units 07:11 04:50 04:50 WBC 7.8 (4.5-11.0) X10^3/uL RBC 3.92 L (4.0-5.2) X10^6/uL Hgb 12.0 (12.0-16.0) g/dL Hct 35.7 L (36-46) % MCV 91.2 (80-100) fL MCH 30.5 (26-34) PG MCHC 33.5 (30-36) % RDW 12.9 (11.6-14.8) % Plt Count 250 (150-400) X10^3/uL Neut % (Auto) 59.8 (50-75) % Lymph % (Auto) 27.9 (25-40) % [place] % (Auto) 9.8 (3-14) % Eos % (Auto) 2.2 (2-4) % Baso % (Auto) 0.3 (0-2) % Neut # (Auto) 4600 (4463-3292) /uL Lymph # (Auto) 2200 (7207-0487) /uL [place] # (Auto) 800 (0-900) /uL Eos # (Auto) 200 (0-450) /uL Baso # (Auto) 0 (0-100) /uL Sodium 136 L (137-145) mmol/L Potassium 4.1 (3.4-5.1) mmol/L Chloride 107 (98-107) mmol/L Carbon Dioxide 23 (22-32) mmol/L BUN 8 (7-17) mg/dL Creatinine 0.60 (0.52-1.04) mg/dL Estimated GFR > 60.0 (>60) mL/min BUN/Creatinine Ratio 13.3 (6-22) Glucose 98 (70-100) mg/dL Calcium 7.9 L (8.4-10.2) mg/dL Magnesium 2.0 (1.6-2.3) mg/dL Total Bilirubin (0.2-1.3) mg/dL AST (14-36) IU/L ALT (9-52) IU/L Alkaline Phosphatase (38-126) U/L Lactate Dehydrogenase (313-618) U/L Total Protein (6.3-8.2) g/dL Albumin (3.5-5.0) g/dL Globulin (1.7-4.1) g/dL Albumin/Globulin Ratio (1.0-2.8) Triglycerides 51 (35-150) mg/dL Cholesterol 101 L (140-199) mg/dL LDL Cholesterol, Calc 58 (<100) mg/dL HDL Cholesterol 33 L (40-60) mg/dL Lipase 3731 H D 2150 H (23-300) U/L Procalcitonin (<0.5) ng/mL Urine Color Urine Appearance Urine pH (4.5-8.0) Ur Specific [place] (1.000-1.035) Urine Protein (Negative) Urine Glucose (UA) (Negative) g/dL Urine Ketones (NEGATIVE) Urine Occult Blood (Negative) Urine Nitrate (Negative) Urine Bilirubin (NEGATIVE) Urine Urobilinogen (0.2) E.U./dL Ur Leukocyte Esterase (NEGATIVE) 01/03/19 01/04/19 01/04/19 Range/Units 07:00 05:39 05:39 WBC 6.7 (4.5-11.0) X10^3/uL RBC 3.88 L (4.0-5.2) X10^6/uL Hgb 11.9 L (12.0-16.0) g/dL Hct 34.9 L (36-46) % MCV 89.9 (80-100) fL MCH 30.7 (26-34) PG MCHC 34.1 (30-36) % RDW 12.7 (11.6-14.8) % Plt Count 227 (150-400) X10^3/uL Neut % (Auto) 63.1 (50-75) % Lymph % (Auto) 23.8 L (25-40) % [place] % (Auto) 9.7 (3-14) % Eos % (Auto) 2.9 (2-4) % Baso % (Auto) 0.5 (0-2) % Neut # (Auto) 4200 (0097-6328) /uL Lymph # (Auto) 1600 (8814-0510) /uL [place] # (Auto) 700 (0-900) /uL Eos # (Auto) 200 (0-450) /uL Baso # (Auto) 0 (0-100) /uL Sodium (137-145) mmol/L Potassium (3.4-5.1) mmol/L Chloride (98-107) mmol/L Carbon Dioxide (22-32) mmol/L BUN (7-17) mg/dL Creatinine (0.52-1.04) mg/dL Estimated GFR (>60) mL/min BUN/Creatinine Ratio (6-22) Glucose (70-100) mg/dL Calcium (8.4-10.2) mg/dL Magnesium (1.6-2.3) mg/dL Total Bilirubin (0.2-1.3) mg/dL AST (14-36) IU/L ALT (9-52) IU/L Alkaline Phosphatase (38-126) U/L Lactate Dehydrogenase (313-618) U/L Total Protein (6.3-8.2) g/dL Albumin (3.5-5.0) g/dL Globulin (1.7-4.1) g/dL Albumin/Globulin Ratio (1.0-2.8) Triglycerides (35-150) mg/dL Cholesterol (140-199) mg/dL LDL Cholesterol, Calc (<100) mg/dL HDL Cholesterol (40-60) mg/dL Lipase 4228 H D (23-300) U/L Procalcitonin < 0.05 (<0.5) ng/mL Urine Color Urine Appearance Urine pH (4.5-8.0) Ur Specific [place] (1.000-1.035) Urine Protein (Negative) Urine Glucose (UA) (Negative) g/dL Urine Ketones (NEGATIVE) Urine Occult Blood (Negative) Urine Nitrate (Negative) Urine Bilirubin (NEGATIVE) Urine Urobilinogen (0.2) E.U./dL Ur Leukocyte Esterase (NEGATIVE) 01/04/19 01/05/19 01/06/19 Range/Units 05:39 06:44 06:33 WBC (4.5-11.0) X10^3/uL RBC (4.0-5.2) X10^6/uL Hgb (12.0-16.0) g/dL Hct (36-46) % MCV (80-100) fL MCH (26-34) PG MCHC (30-36) % RDW (11.6-14.8) % Plt Count (150-400) X10^3/uL Neut % (Auto) (50-75) % Lymph % (Auto) (25-40) % [place] % (Auto) (3-14) % Eos % (Auto) (2-4) % Baso % (Auto) (0-2) % Neut # (Auto) (0749-9239) /uL Lymph # (Auto) (5735-8542) /uL [place] # (Auto) (0-900) /uL Eos # (Auto) (0-450) /uL Baso # (Auto) (0-100) /uL Sodium 138 (137-145) mmol/L Potassium 3.4 (3.4-5.1) mmol/L Chloride 106 (98-107) mmol/L Carbon Dioxide 25 (22-32) mmol/L BUN 5 L (7-17) mg/dL Creatinine 0.60 (0.52-1.04) mg/dL Estimated GFR > 60.0 (>60) mL/min BUN/Creatinine Ratio 8.3 (6-22) Glucose 87 (70-100) mg/dL Calcium 8.1 L (8.4-10.2) mg/dL Magnesium 1.7 (1.6-2.3) mg/dL Total Bilirubin (0.2-1.3) mg/dL AST (14-36) IU/L ALT (9-52) IU/L Alkaline Phosphatase (38-126) U/L Lactate Dehydrogenase (313-618) U/L Total Protein (6.3-8.2) g/dL Albumin (3.5-5.0) g/dL Globulin (1.7-4.1) g/dL Albumin/Globulin Ratio (1.0-2.8) Triglycerides (35-150) mg/dL Cholesterol (140-199) mg/dL LDL Cholesterol, Calc (<100) mg/dL HDL Cholesterol (40-60) mg/dL Lipase 2644 H 1349 H 1010 H (23-300) U/L Procalcitonin (<0.5) ng/mL Urine Color Urine Appearance Urine pH (4.5-8.0) Ur Specific [place] (1.000-1.035) Urine Protein (Negative) Urine Glucose (UA) (Negative) g/dL Urine Ketones (NEGATIVE) Urine Occult Blood (Negative) Urine Nitrate (Negative) Urine Bilirubin (NEGATIVE) Urine Urobilinogen (0.2) E.U./dL Ur Leukocyte Esterase (NEGATIVE) 01/07/19 01/07/19 01/07/19 Range/Units 06:17 06:17 06:17 WBC 6.7 (4.5-11.0) X10^3/uL RBC 3.92 L (4.0-5.2) X10^6/uL Hgb 11.9 L (12.0-16.0) g/dL Hct 35.3 L (36-46) % MCV 89.9 (80-100) fL MCH 30.3 (26-34) PG MCHC 33.7 (30-36) % RDW 12.8 (11.6-14.8) % Plt Count 230 (150-400) X10^3/uL Neut % (Auto) 58.7 (50-75) % Lymph % (Auto) 28.7 (25-40) % [place] % (Auto) 8.7 (3-14) % Eos % (Auto) 3.2 (2-4) % Baso % (Auto) 0.7 (0-2) % Neut # (Auto) 3900 (7010-9886) /uL Lymph # (Auto) 1900 (9483-7877) /uL [place] # (Auto) 600 (0-900) /uL Eos # (Auto) 200 (0-450) /uL Baso # (Auto) 0 (0-100) /uL Sodium 138 (137-145) mmol/L Potassium 3.6 (3.4-5.1) mmol/L Chloride 106 (98-107) mmol/L Carbon Dioxide 26 (22-32) mmol/L BUN 7 (7-17) mg/dL Creatinine 0.60 (0.52-1.04) mg/dL Estimated GFR > 60.0 (>60) mL/min BUN/Creatinine Ratio 11.7 (6-22) Glucose 88 (70-100) mg/dL Calcium 8.2 L (8.4-10.2) mg/dL Magnesium 1.8 (1.6-2.3) mg/dL Total Bilirubin 0.1 L (0.2-1.3) mg/dL AST 35 (14-36) IU/L ALT 37 (9-52) IU/L Alkaline Phosphatase 65 (38-126) U/L Lactate Dehydrogenase (313-618) U/L Total Protein 5.2 L (6.3-8.2) g/dL Albumin 3.0 L (3.5-5.0) g/dL Globulin 2.2 (1.7-4.1) g/dL Albumin/Globulin Ratio 1.4 (1.0-2.8) Triglycerides (35-150) mg/dL Cholesterol (140-199) mg/dL LDL Cholesterol, Calc (<100) mg/dL HDL Cholesterol (40-60) mg/dL Lipase 798 H (23-300) U/L Procalcitonin (<0.5) ng/mL Urine Color Urine Appearance Urine pH (4.5-8.0) Ur Specific [place] (1.000-1.035) Urine Protein (Negative) Urine Glucose (UA) (Negative) g/dL Urine Ketones (NEGATIVE) Urine Occult Blood (Negative) Urine Nitrate (Negative) Urine Bilirubin (NEGATIVE) Urine Urobilinogen (0.2) E.U./dL Ur Leukocyte Esterase (NEGATIVE) Imaging Data US - abdomen: Radiologist's impression: Recent development of focal abnormality of the head and uncinate process of the pancreas. Focal pancreatitis and mass lesion are primary considerations. Interval development of pancreatic duct dilatation <Stephany Wooten, DO - Last Filed: 01/25/19 07:05> Lab Data Lab Results 12/31/18 12/31/18 12/31/18 Range/Units 05:25 05:25 05:25 WBC 10.3 (4.5-11.0) X10^3/uL RBC 4.69 (4.0-5.2) X10^6/uL Hgb 14.2 (12.0-16.0) g/dL Hct 42.6 (36-46) % MCV 90.8 (80-100) fL MCH 30.3 (26-34) PG MCHC 33.3 (30-36) % RDW 13.1 (11.6-14.8) % Plt Count 309 (150-400) X10^3/uL Neut % (Auto) 62.2 (50-75) % Lymph % (Auto) 25.4 (25-40) % [place] % (Auto) 8.2 (3-14) % Eos % (Auto) 3.3 (2-4) % Baso % (Auto) 0.9 (0-2) % Neut # (Auto) 6400 (5763-5513) /uL Lymph # (Auto) 2600 (0002-3759) /uL [place] # (Auto) 800 (0-900) /uL Eos # (Auto) 300 (0-450) /uL Baso # (Auto) 100 (0-100) /uL Sodium 140 (137-145) mmol/L Potassium 3.6 (3.4-5.1) mmol/L Chloride 100 (98-107) mmol/L Carbon Dioxide 28 (22-32) mmol/L BUN 17 (7-17) mg/dL Creatinine 0.80 (0.52-1.04) mg/dL Estimated GFR > 60.0 (>60) mL/min BUN/Creatinine Ratio 21.3 (6-22) Glucose 96 (70-100) mg/dL Calcium 9.4 (8.4-10.2) mg/dL Magnesium (1.6-2.3) mg/dL Total Bilirubin 0.2 (0.2-1.3) mg/dL AST 19 (14-36) IU/L ALT 20 (9-52) IU/L Alkaline Phosphatase 74 (38-126) U/L Lactate Dehydrogenase 379 (313-618) U/L Total Protein 7.5 (6.3-8.2) g/dL Albumin 4.5 (3.5-5.0) g/dL Globulin 3.0 (1.7-4.1) g/dL Albumin/Globulin Ratio 1.5 (1.0-2.8) Triglycerides (35-150) mg/dL Cholesterol (140-199) mg/dL LDL Cholesterol, Calc (<100) mg/dL HDL Cholesterol (40-60) mg/dL Lipase 8383 H (23-300) U/L Procalcitonin (<0.5) ng/mL Urine Color Urine Appearance Urine pH (4.5-8.0) Ur Specific [place] (1.000-1.035) Urine Protein (Negative) Urine Glucose (UA) (Negative) g/dL Urine Ketones (NEGATIVE) Urine Occult Blood (Negative) Urine Nitrate (Negative) Urine Bilirubin (NEGATIVE) Urine Urobilinogen (0.2) E.U./dL Ur Leukocyte Esterase (NEGATIVE) 12/31/18 12/31/18 12/31/18 Range/Units 11:30 11:50 12:00 WBC 8.0 (4.5-11.0) X10^3/uL RBC 4.13 (4.0-5.2) X10^6/uL Hgb 12.7 (12.0-16.0) g/dL Hct 37.6 (36-46) % MCV 91.1 (80-100) fL MCH 30.8 (26-34) PG MCHC 33.8 (30-36) % RDW 13.0 (11.6-14.8) % Plt Count 263 (150-400) X10^3/uL Neut % (Auto) 55.4 (50-75) % Lymph % (Auto) 32.5 (25-40) % [place] % (Auto) 8.1 (3-14) % Eos % (Auto) 3.6 (2-4) % Baso % (Auto) 0.4 (0-2) % Neut # (Auto) 4400 (5142-7291) /uL Lymph # (Auto) 2600 (7331-1682) /uL [place] # (Auto) 600 (0-900) /uL Eos # (Auto) 300 (0-450) /uL Baso # (Auto) 0 (0-100) /uL Sodium 137 (137-145) mmol/L Potassium 4.0 (3.4-5.1) mmol/L Chloride 105 (98-107) mmol/L Carbon Dioxide 25 (22-32) mmol/L BUN 12 (7-17) mg/dL Creatinine 0.70 (0.52-1.04) mg/dL Estimated GFR > 60.0 (>60) mL/min BUN/Creatinine Ratio 17.1 (6-22) Glucose 85 (70-100) mg/dL Calcium 8.1 L (8.4-10.2) mg/dL Magnesium (1.6-2.3) mg/dL Total Bilirubin (0.2-1.3) mg/dL AST (14-36) IU/L ALT (9-52) IU/L Alkaline Phosphatase (38-126) U/L Lactate Dehydrogenase (313-618) U/L Total Protein (6.3-8.2) g/dL Albumin (3.5-5.0) g/dL Globulin (1.7-4.1) g/dL Albumin/Globulin Ratio (1.0-2.8) Triglycerides (35-150) mg/dL Cholesterol (140-199) mg/dL LDL Cholesterol, Calc (<100) mg/dL HDL Cholesterol (40-60) mg/dL Lipase (23-300) U/L Procalcitonin (<0.5) ng/mL Urine Color Yellow Urine Appearance Clear Urine pH 7.5 (4.5-8.0) Ur Specific [place] 1.010 (1.000-1.035) Urine Protein Negative (Negative) Urine Glucose (UA) Negative (Negative) g/dL Urine Ketones Negative (NEGATIVE) Urine Occult Blood Trace-lysed (Negative) Urine Nitrate Negative (Negative) Urine Bilirubin Negative (NEGATIVE) Urine Urobilinogen 0.2 (0.2) E.U./dL Ur Leukocyte Esterase Negative (NEGATIVE) 01/01/19 01/02/19 01/02/19 Range/Units 07:11 04:50 04:50 WBC 7.8 (4.5-11.0) X10^3/uL RBC 3.92 L (4.0-5.2) X10^6/uL Hgb 12.0 (12.0-16.0) g/dL Hct 35.7 L (36-46) % MCV 91.2 (80-100) fL MCH 30.5 (26-34) PG MCHC 33.5 (30-36) % RDW 12.9 (11.6-14.8) % Plt Count 250 (150-400) X10^3/uL Neut % (Auto) 59.8 (50-75) % Lymph % (Auto) 27.9 (25-40) % [place] % (Auto) 9.8 (3-14) % Eos % (Auto) 2.2 (2-4) % Baso % (Auto) 0.3 (0-2) % Neut # (Auto) 4600 (4988-1435) /uL Lymph # (Auto) 2200 (9308-1388) /uL [place] # (Auto) 800 (0-900) /uL Eos # (Auto) 200 (0-450) /uL Baso # (Auto) 0 (0-100) /uL Sodium 136 L (137-145) mmol/L Potassium 4.1 (3.4-5.1) mmol/L Chloride 107 (98-107) mmol/L Carbon Dioxide 23 (22-32) mmol/L BUN 8 (7-17) mg/dL Creatinine 0.60 (0.52-1.04) mg/dL Estimated GFR > 60.0 (>60) mL/min BUN/Creatinine Ratio 13.3 (6-22) Glucose 98 (70-100) mg/dL Calcium 7.9 L (8.4-10.2) mg/dL Magnesium 2.0 (1.6-2.3) mg/dL Total Bilirubin (0.2-1.3) mg/dL AST (14-36) IU/L ALT (9-52) IU/L Alkaline Phosphatase (38-126) U/L Lactate Dehydrogenase (313-618) U/L Total Protein (6.3-8.2) g/dL Albumin (3.5-5.0) g/dL Globulin (1.7-4.1) g/dL Albumin/Globulin Ratio (1.0-2.8) Triglycerides 51 (35-150) mg/dL Cholesterol 101 L (140-199) mg/dL LDL Cholesterol, Calc 58 (<100) mg/dL HDL Cholesterol 33 L (40-60) mg/dL Lipase 3731 H D 2150 H (23-300) U/L Procalcitonin (<0.5) ng/mL Urine Color Urine Appearance Urine pH (4.5-8.0) Ur Specific [place] (1.000-1.035) Urine Protein (Negative) Urine Glucose (UA) (Negative) g/dL Urine Ketones (NEGATIVE) Urine Occult Blood (Negative) Urine Nitrate (Negative) Urine Bilirubin (NEGATIVE) Urine Urobilinogen (0.2) E.U./dL Ur Leukocyte Esterase (NEGATIVE) 01/03/19 01/04/19 01/04/19 Range/Units 07:00 05:39 05:39 WBC 6.7 (4.5-11.0) X10^3/uL RBC 3.88 L (4.0-5.2) X10^6/uL Hgb 11.9 L (12.0-16.0) g/dL Hct 34.9 L (36-46) % MCV 89.9 (80-100) fL MCH 30.7 (26-34) PG MCHC 34.1 (30-36) % RDW 12.7 (11.6-14.8) % Plt Count 227 (150-400) X10^3/uL Neut % (Auto) 63.1 (50-75) % Lymph % (Auto) 23.8 L (25-40) % [place] % (Auto) 9.7 (3-14) % Eos % (Auto) 2.9 (2-4) % Baso % (Auto) 0.5 (0-2) % Neut # (Auto) 4200 (6512-1121) /uL Lymph # (Auto) 1600 (3621-4777) /uL [place] # (Auto) 700 (0-900) /uL Eos # (Auto) 200 (0-450) /uL Baso # (Auto) 0 (0-100) /uL Sodium (137-145) mmol/L Potassium (3.4-5.1) mmol/L Chloride (98-107) mmol/L Carbon Dioxide (22-32) mmol/L BUN (7-17) mg/dL Creatinine (0.52-1.04) mg/dL Estimated GFR (>60) mL/min BUN/Creatinine Ratio (6-22) Glucose (70-100) mg/dL Calcium (8.4-10.2) mg/dL Magnesium (1.6-2.3) mg/dL Total Bilirubin (0.2-1.3) mg/dL AST (14-36) IU/L ALT (9-52) IU/L Alkaline Phosphatase (38-126) U/L Lactate Dehydrogenase (313-618) U/L Total Protein (6.3-8.2) g/dL Albumin (3.5-5.0) g/dL Globulin (1.7-4.1) g/dL Albumin/Globulin Ratio (1.0-2.8) Triglycerides (35-150) mg/dL Cholesterol (140-199) mg/dL LDL Cholesterol, Calc (<100) mg/dL HDL Cholesterol (40-60) mg/dL Lipase 4228 H D (23-300) U/L Procalcitonin < 0.05 (<0.5) ng/mL Urine Color Urine Appearance Urine pH (4.5-8.0) Ur Specific [place] (1.000-1.035) Urine Protein (Negative) Urine Glucose (UA) (Negative) g/dL Urine Ketones (NEGATIVE) Urine Occult Blood (Negative) Urine Nitrate (Negative) Urine Bilirubin (NEGATIVE) Urine Urobilinogen (0.2) E.U./dL Ur Leukocyte Esterase (NEGATIVE) 01/04/19 01/05/19 01/06/19 Range/Units 05:39 06:44 06:33 WBC (4.5-11.0) X10^3/uL RBC (4.0-5.2) X10^6/uL Hgb (12.0-16.0) g/dL Hct (36-46) % MCV (80-100) fL MCH (26-34) PG MCHC (30-36) % RDW (11.6-14.8) % Plt Count (150-400) X10^3/uL Neut % (Auto) (50-75) % Lymph % (Auto) (25-40) % [place] % (Auto) (3-14) % Eos % (Auto) (2-4) % Baso % (Auto) (0-2) % Neut # (Auto) (1620-4849) /uL Lymph # (Auto) (4751-4619) /uL [place] # (Auto) (0-900) /uL Eos # (Auto) (0-450) /uL Baso # (Auto) (0-100) /uL Sodium 138 (137-145) mmol/L Potassium 3.4 (3.4-5.1) mmol/L Chloride 106 (98-107) mmol/L Carbon Dioxide 25 (22-32) mmol/L BUN 5 L (7-17) mg/dL Creatinine 0.60 (0.52-1.04) mg/dL Estimated GFR > 60.0 (>60) mL/min BUN/Creatinine Ratio 8.3 (6-22) Glucose 87 (70-100) mg/dL Calcium 8.1 L (8.4-10.2) mg/dL Magnesium 1.7 (1.6-2.3) mg/dL Total Bilirubin (0.2-1.3) mg/dL AST (14-36) IU/L ALT (9-52) IU/L Alkaline Phosphatase (38-126) U/L Lactate Dehydrogenase (313-618) U/L Total Protein (6.3-8.2) g/dL Albumin (3.5-5.0) g/dL Globulin (1.7-4.1) g/dL Albumin/Globulin Ratio (1.0-2.8) Triglycerides (35-150) mg/dL Cholesterol (140-199) mg/dL LDL Cholesterol, Calc (<100) mg/dL HDL Cholesterol (40-60) mg/dL Lipase 2644 H 1349 H 1010 H (23-300) U/L Procalcitonin (<0.5) ng/mL Urine Color Urine Appearance Urine pH (4.5-8.0) Ur Specific [place] (1.000-1.035) Urine Protein (Negative) Urine Glucose (UA) (Negative) g/dL Urine Ketones (NEGATIVE) Urine Occult Blood (Negative) Urine Nitrate (Negative) Urine Bilirubin (NEGATIVE) Urine Urobilinogen (0.2) E.U./dL Ur Leukocyte Esterase (NEGATIVE) 01/07/19 01/07/19 01/07/19 Range/Units 06:17 06:17 06:17 WBC 6.7 (4.5-11.0) X10^3/uL RBC 3.92 L (4.0-5.2) X10^6/uL Hgb 11.9 L (12.0-16.0) g/dL Hct 35.3 L (36-46) % MCV 89.9 (80-100) fL MCH 30.3 (26-34) PG MCHC 33.7 (30-36) % RDW 12.8 (11.6-14.8) % Plt Count 230 (150-400) X10^3/uL Neut % (Auto) 58.7 (50-75) % Lymph % (Auto) 28.7 (25-40) % [place] % (Auto) 8.7 (3-14) % Eos % (Auto) 3.2 (2-4) % Baso % (Auto) 0.7 (0-2) % Neut # (Auto) 3900 (0782-2387) /uL Lymph # (Auto) 1900 (5287-0869) /uL [place] # (Auto) 600 (0-900) /uL Eos # (Auto) 200 (0-450) /uL Baso # (Auto) 0 (0-100) /uL Sodium 138 (137-145) mmol/L Potassium 3.6 (3.4-5.1) mmol/L Chloride 106 (98-107) mmol/L Carbon Dioxide 26 (22-32) mmol/L BUN 7 (7-17) mg/dL Creatinine 0.60 (0.52-1.04) mg/dL Estimated GFR > 60.0 (>60) mL/min BUN/Creatinine Ratio 11.7 (6-22) Glucose 88 (70-100) mg/dL Calcium 8.2 L (8.4-10.2) mg/dL Magnesium 1.8 (1.6-2.3) mg/dL Total Bilirubin 0.1 L (0.2-1.3) mg/dL AST 35 (14-36) IU/L ALT 37 (9-52) IU/L Alkaline Phosphatase 65 (38-126) U/L Lactate Dehydrogenase (313-618) U/L Total Protein 5.2 L (6.3-8.2) g/dL Albumin 3.0 L (3.5-5.0) g/dL Globulin 2.2 (1.7-4.1) g/dL Albumin/Globulin Ratio 1.4 (1.0-2.8) Triglycerides (35-150) mg/dL Cholesterol (140-199) mg/dL LDL Cholesterol, Calc (<100) mg/dL HDL Cholesterol (40-60) mg/dL Lipase 798 H (23-300) U/L Procalcitonin (<0.5) ng/mL Urine Color Urine Appearance Urine pH (4.5-8.0) Ur Specific [place] (1.000-1.035) Urine Protein (Negative) Urine Glucose (UA) (Negative) g/dL Urine Ketones (NEGATIVE) Urine Occult Blood (Negative) Urine Nitrate (Negative) Urine Bilirubin (NEGATIVE) Urine Urobilinogen (0.2) E.U./dL Ur Leukocyte Esterase (NEGATIVE) MDM Narrative Medical decision making narrative: Patient signed out to me by Dr. Roberson. She had been admitted in wind up to the floor without any issue. Discharge Plan Departure Patient Disposition: Admitted As Inpatient Clinical Impression: Acute pancreatitis Qualifiers: Pancreatitis type: unspecified pancreatitis type Acute pancreatitis complication: unspecified Qualified Code(s): K85.90 - Acute pancreatitis without necrosis or infection, unspecified Discharge Date/Time: 12/31/18 08:15 Interventions: ED Discharge Assessment Last Done: 12/31/18 08:13 Admit Date/Time: 12/31/18 08:04 Admit Provider: Dina Bro
[2018-12-31 05:30] LABS: Add Manual Diff / Slide Review NO; Basophils Absolute Auto 100 /uL (0-100); Basophils Percent Auto 0.9 % (0-2); Eosinophils Absolute Auto 300 /uL (0-450); Eosinophils Percent Auto 3.3 % (2-4); Hematocrit 42.6 % (36-46); Hemoglobin 14.2 g/dL (12.0-16.0); Lymphocytes Absolute Auto 2600 /uL (1100-4500); Lymphocytes Percent Auto 25.4 % (25-40); Mean Corpuscular HGB Conc 33.3 % (30-36); Mean Corpuscular Hemoglobin 30.3 PG (26-34); Mean Corpuscular Volume 90.8 fL (80-100); Monocytes Absolute Auto 800 /uL (0-900); Monocytes Percent Auto 8.2 % (3-14); Neutrophils Absolute Auto 6400 /uL (1500-7000); Neutrophils Percent Auto 62.2 % (50-75); Platelet Count 309 X10^3/uL (150-400); Red Blood Cell Count 4.69 X10^6/uL (4.0-5.2); Red Cell Distribution Width 13.1 % (11.6-14.8); White Blood Cell Count 10.3 X10^3/uL (4.5-11.0)
[2018-12-31] MEDS: PANTOPRAZOLE 40 MG VIAL IV (05:38)
[2018-12-31] MEDS: ONDANSETRON 4 MG/2 ML INJ IV (05:38)
[2018-12-31] MEDS: MAG HYDROX/ALUMINUM/SIMETH SUS 20 ML, LIDOCAINE VISCOUS 2% 15 ML PO (05:39)
[2018-12-31] MEDS: HYDROMORPHONE 1 MG INJ IV (05:40)
[2018-12-31 05:41] LABS: Alanine Aminotransferase 20 IU/L (9-52); Albumin 4.5 g/dL (3.5-5.0); Albumin Globulin Ratio 1.5 (1.0-2.8); Alkaline Phosphatase 74 U/L (38-126); Aspartate Aminotransferase 19 IU/L (14-36); BUN Creatinine Ratio 21.3 (6-22); Bilirubin Total 0.2 mg/dL (0.2-1.3); Blood Urea Nitrogen 17 mg/dL (7-17); Calcium 9.4 mg/dL (8.4-10.2); Carbon Dioxide 28 mmol/L (22-32); Chloride 100 mmol/L (98-107); Estimated Glomerular Filt Rate > 60.0 mL/min (>60); Glucose 96 mg/dL (70-100); HEMOLYSIS < 15 (0-50); Potassium 3.6 mmol/L (3.4-5.1); Sodium 140 mmol/L (137-145); Total Protein 7.5 g/dL (6.3-8.2)
[2018-12-31] MEDS: SODIUM CHLORIDE 0.9% 1,000 ML 1000 ML IV (05:42)
[2018-12-31 05:48] LABS: Lipase 8383 U/L (23-300)
--- NOTE | 2018-12-31 06:36 | DI.CT.S_ITS ---
PROCEDURE: CT ABDOMEN WO/W CON INDICATIONS: pancreatic mass TECHNIQUE: Noncontrast 3 mm thick sections acquired through the pancreas. After the administration of intravenous contrast, 3 mm thick pancreatic-phase images acquired from the diaphragm to the iliac crests. 3 mm thick coronal and sagittal reformats were performed. For radiation dose reduction, the following was used: automated exposure control, adjustment of mA and/or kV according to patient size. COMPARISON: None. FINDINGS: Image quality: Diagnostic. Lung bases: Mild scarring versus atelectasis is present within the lung bases. Heart size is normal. Pancreas: The pancreas is normal in size. There is a area of decreased density identified involving the head and uncinate process of the pancreas without a definable mass or lesion evident. The main pancreatic duct is slightly enlarged through the body of the pancreas, measuring up to approximately 4 mm in diameter. No significant peripancreatic edema is identified. No peripancreatic fluid collections are evident. The splenic artery and the superior mesenteric vein are within normal limits. The portal vein is patent. Other solid organs: Liver is normal in size and enhancement. Gallbladder is not enlarged. Biliary system is non dilated. Spleen is normal in size and enhancement. No adrenal nodules. Kidneys are normal in size and enhancement, without hydronephrosis. Bilateral nonobstructing renal calculi are evident measuring approximately 2-3 mm in diameter. There is no hydronephrosis. Symmetric enhancement of the kidneys is present. Peritoneum and bowel: Stomach and duodenum are unremarkable. There may be slight wall thickening involving the second portion of the duodenum. The imaged small bowel loops are nondilated. Moderate residual stool seen within the imaged portions of the colon. No free fluid or loculated fluid collection is evident within the upper abdomen. Nodes and vessels: No retroperitoneal or mesenteric adenopathy by size criteria. Aorta and inferior vena cava are normal in size. Bones: No suspicious bony lesions. No vertebral body compression fractures. IMPRESSION: 1. No definable pancreatic mass is appreciated. However, given the appearance on the ultrasound, a followup CT CT or MRI of the pancreas with contrast in 1-2 months is recommended. 2. Heterogeneous decreased density of the uncinate processes suspicious for possible acute pancreatitis. Please correlate clinically. 3. No abscess or significant free fluid within the upper abdomen. 4. Possible constipation. No bowel obstruction. 5. Nonobstructing bilateral renal calculi. Note: The preliminary [facility] report and the final report are concordant. Dictated by: Sg Mcdonough M.D. on 12/31/2018 at 13:46 Approved by: Sg Mcdonough M.D. on 12/31/2018 at 13:50
[2018-12-31 06:38] LABS: Lactate Dehydrogenase 379 U/L (313-618)
[2018-12-31] MEDS: SODIUM CHLORIDE 0.9% 1,000 ML 150 ML IV ×3 (09:50→23:00)
--- NOTE | 2018-12-31 10:13 | PM.HP.1 ---
History of Present Illness Date Patient Seen: 12/31/18 Time Patient Seen: 10:13 Chief complaint: pancreatitis Narrative: 43-year-old female with no past medical history presented to ED with abdominal pain. patient states the pain started roughly about a week ago, progressively has gotten worse. The pain is in the epigastric region, radiating to the back area. It is constant, sharp, 7/10 severity, worsened with p.o. food intake. The patient denies any fevers or chills, headache, dizziness, blurry vision. Denies any cough, shortness of breath, sore throat, chest pain. Patient denies any vomiting but states she has been nauseous. Denies any diarrhea, constipation, or symptoms. Patient states she initially started having the symptoms in September, during which time she went to Emergency Department and was told she had mild pancreatitis. She was sent home with instructions to drink clear liquids only until symptoms resolved. Patient states symptoms would resolve however when she started eating again symptoms would return. For the past week patient states she has not taken much p.o. food, and therefore has lost 5 lb. The etiology of patient's pancreatitis is yet to be determined. Patient does have an appointment with LIANA Elizalde for EGD in 5 days. Patient is a chronic smoker however only consumes alcohol on extremely cage in, once or twice a month and in small doses. Denies any other drug use. In ED, patient's vital signs revealed temperature 97.8? F, pulse 58, respiratory rate 18, blood pressure 102/63, saturating 100% on room air. Lab work revealed completely benign CBC without leukocytosis. CMP was also completely benign. Lipase however was elevated at 8383 (which is a change from 03/10 in September 2018). Abdominal ultrasound did not reveal any stones or bile duct dilations. There was a question of possible lesion on the pancreatic head, and therefore CT abdomen pelvis was performed which ruled out pancreatic lesion (however final imaging read is pending). Patient was given 2 L bolus and Dilaudid IV and was admitted to MedSurg unit for further management of acute pancreatitis. Patient History Social History household members: spouse Smoking Status: Current every day smoker alcohol intake: current Family & Social History Family History (Updated 05/04/19 @ 10:26 by Dina Bro MD) Sister Ulcerative colitis Social History: household members spouse Prior Living Arrangements House Safety & Behavioral: Feels Safe in Current Yes Environment Been Physically Hurt or No Threatened By a Person Suicidal Ideation Description None Tobacco & Substance use: Tobacco type cigarettes Smoking Status Current every day smoker Smoking packs per day 0.5 alcohol intake current alcohol intake frequency 0-2 drinks per day Substance Use Type does not use Meds Home Medications Medication Instructions Recorded Confirmed Type hydrocodone-acetaminophen [[place]] 1 tab PO Q4-6H PRN #15 tab 10/06/18 Rx ondansetron 4 mg PO BID-TID PRN #12 tab 10/06/18 Rx Allergies Allergy/AdvReac Type Severity Reaction Status Date / Time Penicillins Allergy Intermediate Verified 10/06/18 13:20 prednisone Allergy Intermediate Verified 10/06/18 13:20 Review of Systems Review of Systems All systems reviewed & are unremarkable except as noted in HPI and below Exam Vital Signs (past 8 hours): - 12/31/18 05:05 12/31/18 07:53 12/31/18 08:37 Temperature 98.4 F 97.8 F Pulse Rate 83 58 L 55 L Respiratory Rate 16 18 16 Blood Pressure 109/68 98/54 L Blood Pressure [Left Arm] 102/63 Pulse Oximetry 99 100 100 Oxygen Delivery Method Room Air Narrative Exam Narrative: General: No acute distress, A/O x3. Pleasant individual. HEENT: PERRLA bilaterally, moist mucous membranes Neck: Supple, no LAD CV: Regular rate rhythm, no murmurs or gallops Respiratory: CTA bilaterally, no wheezing or crackles or rhonchi GI: Positive bowel sounds in all 4 quadrants. Tenderness to palpation in the epigastric region. Minimal guarding. No organomegaly. Extremities: No edema present. 2+ pulses in all extremities. Musculoskeletal: Able to move all extremities Neuro: No focal deficits, AAO x3 Psych: Appropriate mood and behavior. Able to make her own decisions Objective Labs Result Diagrams: 12/31/18 05:25 12/31/18 05:25 Labs: Laboratory Results - last 24 hr 12/31/18 12/31/18 12/31/18 05:25 05:25 05:25 WBC 10.3 RBC 4.69 Hgb 14.2 Hct 42.6 MCV 90.8 MCH 30.3 MCHC 33.3 RDW 13.1 Plt Count 309 Neut % (Auto) 62.2 Lymph % (Auto) 25.4 [place] % (Auto) 8.2 Eos % (Auto) 3.3 Baso % (Auto) 0.9 Neut # (Auto) 6400 Lymph # (Auto) 2600 [place] # (Auto) 800 Eos # (Auto) 300 Baso # (Auto) 100 Sodium 140 Potassium 3.6 Chloride 100 Carbon Dioxide 28 BUN 17 Creatinine 0.80 Estimated GFR > 60.0 BUN/Creatinine Ratio 21.3 Glucose 96 Calcium 9.4 Total Bilirubin 0.2 AST 19 ALT 20 Alkaline Phosphatase 74 Lactate Dehydrogenase 379 Total Protein 7.5 Albumin 4.5 Globulin 3.0 Albumin/Globulin Ratio 1.5 Lipase 8383 H Assessment & Plan Assessment & Plan narrative: 43-year-old female with no past medical history presented to ED with abdominal pain. she was found to have acute pancreatitis of unclear etiology and admitted for further management. 1. Acute pancreatitis -unclear etiology at this time -patient is hemodynamically stable -lipase levels 8383 -abdominal ultrasound without any evidence of stones -CT abdomen pelvis without evidence of pancreatic lesions -will get lipid panel to rule out triglycerides as a cause of pancreatitis -morphine 2 mg IV q.3 hours as needed for pain, Zofran 4 mg IV q.6 hours as needed for nausea vomiting -will keep patient NPO at this time and give IVF NS 0.9 at 150 cc an hour -monitor for improvement and advanced to clear liquids as tolerated -the patient has EGD scheduled with GI specialist as outpatient in 5 days, recommended to keep her appointment 2. Tobacco dependence -patient states she smokes about 7 cigarettes per day -refused cessation counseling or nicotine patch Full code Dispo: Patient is here for acute pancreatitis management. Source unknown Quality VTE Deep Vein Thrombosis/Pulmonary Embolism Present on Admission: No
[2018-12-31 11:56] LABS: BUN Creatinine Ratio 17.1 (6-22); Blood Urea Nitrogen 12 mg/dL (7-17); Calcium 8.1 mg/dL (8.4-10.2); Carbon Dioxide 25 mmol/L (22-32); Chloride 105 mmol/L (98-107); Estimated Glomerular Filt Rate > 60.0 mL/min (>60); Glucose 85 mg/dL (70-100); HEMOLYSIS < 15 (0-50); Sodium 137 mmol/L (137-145)
[2018-12-31 12:10] LABS: Add Manual Diff / Slide Review NO; Basophils Absolute Auto 0 /uL (0-100); Basophils Percent Auto 0.4 % (0-2); Eosinophils Absolute Auto 300 /uL (0-450); Eosinophils Percent Auto 3.6 % (2-4); Hematocrit 37.6 % (36-46); Hemoglobin 12.7 g/dL (12.0-16.0); Lymphocytes Absolute Auto 2600 /uL (1100-4500); Lymphocytes Percent Auto 32.5 % (25-40); Mean Corpuscular HGB Conc 33.8 % (30-36); Mean Corpuscular Hemoglobin 30.8 PG (26-34); Mean Corpuscular Volume 91.1 fL (80-100); Monocytes Absolute Auto 600 /uL (0-900); Monocytes Percent Auto 8.1 % (3-14); Neutrophils Absolute Auto 4400 /uL (1500-7000); Neutrophils Percent Auto 55.4 % (50-75); Platelet Count 263 X10^3/uL (150-400); Red Blood Cell Count 4.13 X10^6/uL (4.0-5.2)
[2018-12-31 14:53] LABS: Appearance Urine UA CLEAR; Bilirubin Urine UA NEGATIVE (NEGATIVE); Color Urine UA YELLOW; Glucose Urine UA NEGATIVE (Negative); Ketones Urine UA NEGATIVE (NEGATIVE); Leukocyte Esterase Urine UA NEGATIVE (NEGATIVE); Nitrite Urine UA NEGATIVE (Negative); Occult Blood Urine UA TRACE-LYSED (Negative); Protein Urine UA NEGATIVE (Negative); Urobilinogen Urine UA 0.2 E.U./dL (0.2); pH Urine UA 7.5 (4.5-8.0)
[2018-12-31] MEDS: MORPHINE 2 MG/ML INJ IV ×2 (19:19→23:00)
[2019-01-01] VITALS (10 sets, daily range): BP systolic 93–107; BP diastolic 51–61; PULSE 63–80; RESP 16–18; TEMP 36.6–37; O2SAT 97–100
--- NOTE | 2019-01-01 | DI.MRI.S_ITS ---
PROCEDURE: MR ABDOMEN WO CON INDICATIONS: Recurrent pancreatitis possible CBD stone TECHNIQUE: Coronal HASTE through the abdomen, axial 2-D FLASH in- and [id number], and breath-hold T2 FSE with fat saturation through the biliary system and pancreas. Oblique coronal and axial thin-slice HASTE, radial thick-slab HASTE centered on the extrahepatic bile ducts. Intravenous secretin: Not requested. COMPARISON: Abdominal ultrasound and CT abdomen/pelvis dated 12/31/2018. FINDINGS: Image quality: Excellent. Pancreas and biliary system: Intra- and extra-hepatic biliary ducts are non dilated. There is persistent prominence of the main pancreatic duct without intraluminal filling defects identified. No intraluminal filling defects identified in the visualized portions of the common bile duct. Pancreas is normal in morphology, without adjacent soft tissue edema. No definite mass is identified within the pancreas. Specifically, no focal abnormalities noted in the region of the pancreatic neck, head, or uncinate process. Very subtle area of slight hyperintensity noted in the region of decreased attenuation on comparison CT. However, this was an area of motion artifact. Gallbladder unremarkable in MRI appearance. No gallstones identified. No pericholecystic edema. Other solid organs: Liver is normal in size. Spleen is normal in size. No adrenal nodules. Both kidneys are normal in size, without hydronephrosis. Nodes and vessels: No retroperitoneal or mesenteric adenopathy by size criteria. Aorta and inferior vena cava are normal in size. Bowel and peritoneum: Unenhanced bowel loops are normal in caliber. No free fluid. Lung bases: No basal pleural effusions. Heart size is normal. Bones and soft tissues: No ventral hernias. Bone marrow is of normal overall signal. IMPRESSION: 1. Persistent prominence of the main pancreatic duct without intraluminal filling defects or identifiable pancreatic mass. Specifically, region of heterogeneous attenuation on recent comparison CT and questionable pancreatic lesion on ultrasound is not readily visible on this MRI. There is no dilatation of the common bile duct or intraluminal filling defects. Consider short interval followup imaging with multiphasic CT or MRI using pancreatic mass protocol to evaluate in 1-2 months as previously recommended. 2. Otherwise, no acute abnormalities identified in the abdomen. Dictated by: Scott Garay M.D. on 01/02/2019 at 0:43 Approved by: Scott Garay M.D. on 01/02/2019 at 1:05
[2019-01-01] MEDS: MORPHINE 2 MG/ML INJ IV ×2 (02:07→19:54)
[2019-01-01] MEDS: SODIUM CHLORIDE 0.9% 1,000 ML 150 ML IV (05:43)
[2019-01-01] MEDS: ACETAMINOPHEN 325 MG TABLET 650 MG PO (05:53)
[2019-01-01 07:30] LABS: Cholesterol 101 mg/dL (140-199); HDL Cholesterol 33 mg/dL (40-60); LDL Cholesterol Calculated 58 mg/dL (<100); Triglycerides 51 mg/dL (35-150)
[2019-01-01 07:37] LABS: Lipase 3731 U/L (23-300)
--- NOTE | 2019-01-01 07:49 | P.PN_ITS ---
Subjective Date Patient Seen: 01/01/19 Interval history: Hillary Malhotra is a 43-year-old female with no significant past medical history who presented to ED with abdominal pain and found to have acute pancreatitis of unclear etiology. The patient is resting in bed comfortably. She reports she feels better than y day. She has had no vomiting during this episode. She reports her nausea is improved and abdominal pain is now mild. She reports these episodes have been happening since September. She denies significant alcohol intake. She smokes half a pack of cigarettes a day. Her triglycerides were within normal limits and noncontributory. She has no other complaints and denies headache, shortness of breath, chest pain, fever, chills, dysuria, diarrhea or constipation. She is voiding without difficulty. She is up ambulating minimally without assistance. Exam Vital Signs (past 8 hours): - 01/01/19 01:29 01/01/19 01:39 01/01/19 05:00 Temperature 98.4 F 97.8 F Pulse Rate 63 80 Respiratory Rate 16 16 Blood Pressure 93/56 L 101/61 Pulse Oximetry 98 98 98 Oxygen Delivery Method Room Air Oxygen Flow Rate 0 Narrative Exam Narrative: General: Middle-aged female sitting in bed and in no acute distress, well- developed, well-nourished, appropriately interactive. HEENT: Normocephalic, atraumatic. External ears without defect. Pupils equal, round, and reactive to light. Anicteric sclerae, moist conjunctivae, and no lid lag. Oropharynx free of erythema and cobble stoning with moist mucosa. Neck: Supple with full range of motion. No lymphadenopathy or thyromegaly. Cardiovascular: Regular rate and rhythm without murmurs, rubs, or gallops appreciated. Pulmonary: Clear to auscultation bilaterally without crackles, wheezes, or rhonchi. Normal respiratory effort with no use of accessory muscles. Abdomen: Soft, bowel sounds present, mild tenderness to palpation in epigastrium otherwise nontender, nondistended. No hepatosplenomegaly or masses appreciated. Extremities: No clubbing, cyanosis, or edema. Skin: Normal temperature, turgor, and texture; no rash, ulcers, or subcutaneous nodules appreciated. Neurological: Cranial nerves grossly intact. Psychiatric: Normal mood and affect. Alert and oriented to person, place, and time. Objective Labs Result Diagrams: 12/31/18 11:50 12/31/18 11:30 Labs: Laboratory Results - last 24 hr 12/31/18 12/31/18 12/31/18 11:30 11:50 12:00 WBC 8.0 RBC 4.13 Hgb 12.7 Hct 37.6 MCV 91.1 MCH 30.8 MCHC 33.8 RDW 13.0 Plt Count 263 Neut % (Auto) 55.4 Lymph % (Auto) 32.5 [place] % (Auto) 8.1 Eos % (Auto) 3.6 Baso % (Auto) 0.4 Neut # (Auto) 4400 Lymph # (Auto) 2600 [place] # (Auto) 600 Eos # (Auto) 300 Baso # (Auto) 0 Sodium 137 Potassium 4.0 Chloride 105 Carbon Dioxide 25 BUN 12 Creatinine 0.70 Estimated GFR > 60.0 BUN/Creatinine Ratio 17.1 Glucose 85 Calcium 8.1 L Triglycerides Cholesterol LDL Cholesterol, Calc HDL Cholesterol Lipase Urine Color Yellow Urine Appearance Clear Urine pH 7.5 Ur Specific [place] 1.010 Urine Protein Negative Urine Glucose (UA) Negative Urine Ketones Negative Urine Occult Blood Trace-lysed Urine Nitrate Negative Urine Bilirubin Negative Urine Urobilinogen 0.2 Ur Leukocyte Esterase Negative 01/01/19 07:11 WBC RBC Hgb Hct MCV MCH MCHC RDW Plt Count Neut % (Auto) Lymph % (Auto) [place] % (Auto) Eos % (Auto) Baso % (Auto) Neut # (Auto) Lymph # (Auto) [place] # (Auto) Eos # (Auto) Baso # (Auto) Sodium Potassium Chloride Carbon Dioxide BUN Creatinine Estimated GFR BUN/Creatinine Ratio Glucose Calcium Triglycerides 51 Cholesterol 101 L LDL Cholesterol, Calc 58 HDL Cholesterol 33 L Lipase 3731 H D Urine Color Urine Appearance Urine pH Ur Specific [place] Urine Protein Urine Glucose (UA) Urine Ketones Urine Occult Blood Urine Nitrate Urine Bilirubin Urine Urobilinogen Ur Leukocyte Esterase Assessment & Plan Assessment & Plan narrative: Hillary Malhotra is a 43-year-old female with no significant past medical history who presented to ED with abdominal pain and found to have acute pancreatitis of unclear etiology. 1. Acute pancreatitis, present on admission. Active. -Etiology unclear at this time. -Hemodynamically stable. -Initial lipase level 8383. Trending down to 3731. Continue to trend daily. -Abdominal ultrasound demonstrated questionable pancreatic lesion with prominence of the main pancreatic duct. Contrast enhanced CT of the abdomen is recommended for further evaluation. No cholelithiasis or acute cholecystitis. No free fluid within the abdomen. -CT abdomen pelvis with contrast demonstrated heterogeneous decreased density of the uncinate processes suspicious for possible acute pancreatitis.without evidence of pancreatic lesions. -Ordered MRCP to further delineate pancreatic anatomy, any lesions, and or stones, pending. -Ordered lipid panel which ruled out hypertriglyceridemia as a cause of pancreatitis. -Ordered morphine 2 mg IV every 3 hours as needed for pain and Zofran 4 mg IV every 6 hours as needed for nausea and vomiting. -Patient was NPO for bowel rest and will plan to slowly advance diet as tolerated to clears today. -Continue IVF NS 0.9 at 125 cc/hr. -Patient has EGD scheduled with GI specialist as outpatient in 5 days, recommended to keep her appointment. 2. Tobacco dependence, present on admission. Active. -Patient currently smokes about 7 cigarettes per day. -Refused cessation counseling and nicotine patch. Disposition: Likely to discharge home in 1-2 days depending on work-up of acute pancreatitis and improvement with treatment, toleration of advancement in diet and pain control. Quality VTE Deep Vein Thrombosis/Pulmonary Embolism Present on Admission: No
--- NOTE | 2019-01-01 14:03 | CM.DANOTE ---
Patient is a 43 year old female who was admitted on 12/31/18 for Pancreatitis. Pt has [employer] for insurance and her PCP is Dr. Supriya Bullock. EMR was reviewed. Per MD, pt with pancreatitis with unclear etiology and not ETOH related and will try to advance her diet and see how she tolerates. Pt to have scan to determine if she has stones and if so then may need hospital transfer. SW met bedside with pt, spouse, and young son and explained role and pt confirms that she lives at home in [place] with her family and is Independent with ADL's at baseline and drives. Pt confirms that she rarely drinks alcohol and is hopeful to start feeling better and d/c home with supportive family. Pt states her is available for assist at d/c if needed. Pt denies any hx of HH or SNF and does not anticipate any needs at d/c once stable. SW updated white board. Plan: SW to follow to determine if pt is safe for d/c home with spouse and young son when medically stable. Pending test results, pt may need hospital transfer for higher level of care prior to d/c. KELLEN Thornton Discharge Planning/Care Management CM Discharge Assessment Start: 01/01/19 14:01 Freq: Status: Active Protocol: Document 01/01/19 14:01 (Rec: 01/01/19 14:03 [id number]) Discharge Planning Assessment Assigned Sterile Process Tech KELLEN Valenzuela DPOA/Assigned Designee Name none Advance Directives? Yes History Provided By Patient Significant Other Medical Record Has Patient been admitted in last 30 No days? Prior Living Arrangements House Household Members spouse children Type of transporation used prior to Drives own vehicle admit Comment Lives at home with spouse and young son, I at baseline. Independent with ADL's Yes Is patient alert and oriented? Yes Caregiver for Another Yes: young son at home Comment Likely home with family when stable Barriers to Discharge No Discharge Plan Home Transportation Arrangement Spouse can likely provide transport Referrals Initiated None needed Whiteboard Updated in Patient Room with Yes name and ext. # of Sterile Process Tech Review Status In Process Please Provide Date Initial DC 01/01/19 Assessment Was Performed Next Review Type Continued Stay Review
[2019-01-01] MEDS: SODIUM CHLORIDE 0.9% 1,000 ML 125 ML IV ×2 (15:33→23:59)
--- NOTE | 2019-01-01 22:17 | PC.NURSE ---
Pt tolerated her clear liquid diet. pt reports a dull abd pain 11/06. no n/v. independent. urinating ok. call light in reach. IVF.
[2019-01-02] VITALS (9 sets, daily range): BP systolic 97–107; BP diastolic 51–65; PULSE 57–76; RESP 14–16; TEMP 36.5–36.8; O2SAT 97–100; BMI 23.3
[2019-01-02] MEDS: MORPHINE 2 MG/ML INJ IV (01:42)
[2019-01-02] MEDS: DOCUSATE 100 MG CAPSULE PO (04:45)
--- NOTE | 2019-01-02 05:27 | PC.NURSE ---
Pt able to sleep. Epigastric pain 4-01/06 this shift. Pt is concerned about constipations (LBM) 12/30/18. Orders for bowel protocol meds and 100 mg po colace given this shift. She would like to transition to po pain medications to facilitate her discharge and takes one 5/325 mg [place] q 4 hrs po, at home.
[2019-01-02 05:58] LABS: Add Manual Diff / Slide Review NO; Basophils Absolute Auto 0 /uL (0-100); Basophils Percent Auto 0.3 % (0-2); Eosinophils Absolute Auto 200 /uL (0-450); Eosinophils Percent Auto 2.2 % (2-4); Hematocrit 35.7 % (36-46); Lymphocytes Absolute Auto 2200 /uL (1100-4500); Lymphocytes Percent Auto 27.9 % (25-40); Mean Corpuscular HGB Conc 33.5 % (30-36); Mean Corpuscular Hemoglobin 30.5 PG (26-34); Mean Corpuscular Volume 91.2 fL (80-100); Monocytes Absolute Auto 800 /uL (0-900); Monocytes Percent Auto 9.8 % (3-14); Neutrophils Absolute Auto 4600 /uL (1500-7000); Neutrophils Percent Auto 59.8 % (50-75); Platelet Count 250 X10^3/uL (150-400); Red Blood Cell Count 3.92 X10^6/uL (4.0-5.2); Red Cell Distribution Width 12.9 % (11.6-14.8); White Blood Cell Count 7.8 X10^3/uL (4.5-11.0)
[2019-01-02 06:04] LABS: BUN Creatinine Ratio 13.3 (6-22); Blood Urea Nitrogen 8 mg/dL (7-17); Calcium 7.9 mg/dL (8.4-10.2); Carbon Dioxide 23 mmol/L (22-32); Chloride 107 mmol/L (98-107); Estimated Glomerular Filt Rate > 60.0 mL/min (>60); Glucose 98 mg/dL (70-100); HEMOLYSIS 21 (0-50); Potassium 4.1 mmol/L (3.4-5.1); Sodium 136 mmol/L (137-145)
[2019-01-02 06:10] LABS: Lipase 2150 U/L (23-300)
[2019-01-02] MEDS: ACETAMINOPHEN 325 MG TABLET 975 MG PO (07:40)
[2019-01-02] MEDS: SODIUM CHLORIDE 0.9% 1,000 ML 125 ML IV ×3 (07:57→23:56)
--- NOTE | 2019-01-02 08:03 | PM.PN.1 ---
Subjective Date Patient Seen: 01/02/19 Interval history: Hillary Malhotra is a 43-year-old female with no significant past medical history who presented to ED with abdominal pain and found to have acute pancreatitis of unclear etiology. The patient is resting in bed comfortably. She endorses mild headache this morning which was relieved with Tylenol. She reports her nausea has resolved. She continues to have mild epigastric abdominal pain that is more positional and sharp/shooting in quality. She tolerated a clear liquid diet and will plan to slowly advanced today. She has no other complaints and denies headache, shortness of breath, chest pain, fever, chills, dysuria, diarrhea or constipation. She is voiding without difficulty. She is up ambulating minimally without assistance. Exam Vital Signs (past 8 hours): - 01/02/19 01:26 01/02/19 05:00 Temperature 98.0 F 98.2 F Pulse Rate 73 66 Respiratory Rate 16 16 Blood Pressure 104/56 L 100/56 L Pulse Oximetry 98 98 Oxygen Delivery Method Room Air Oxygen Flow Rate 0 Narrative Exam Narrative: General: Middle-aged female sitting in bed and in no acute distress, well-developed, well-nourished, appropriately interactive. HEENT: Normocephalic, atraumatic. External ears without defect. Pupils equal, round, and reactive to light. Anicteric sclerae, moist conjunctivae, and no lid lag. Oropharynx free of erythema and cobble stoning with moist mucosa. Neck: Supple with full range of motion. No lymphadenopathy or thyromegaly. Cardiovascular: Regular rate and rhythm without murmurs, rubs, or gallops appreciated. Pulmonary: Clear to auscultation bilaterally without crackles, wheezes, or rhonchi. Normal respiratory effort with no use of accessory muscles. Abdomen: Soft, bowel sounds present, mild tenderness to palpation in epigastrium slightly improved otherwise abdomen is nontender, nondistended. No hepatosplenomegaly or masses appreciated. Extremities: No clubbing, cyanosis, or edema. Skin: Normal temperature, turgor, and texture; no rash, ulcers, or subcutaneous nodules appreciated. Neurological: Cranial nerves grossly intact. Psychiatric: Normal mood and affect. Alert and oriented to person, place, and time. Objective Labs Result Diagrams: 01/02/19 04:50 01/02/19 04:50 Labs: Laboratory Results - last 24 hr 01/02/19 01/02/19 04:50 04:50 WBC 7.8 RBC 3.92 L Hgb 12.0 Hct 35.7 L MCV 91.2 MCH 30.5 MCHC 33.5 RDW 12.9 Plt Count 250 Neut % (Auto) 59.8 Lymph % (Auto) 27.9 [place] % (Auto) 9.8 Eos % (Auto) 2.2 Baso % (Auto) 0.3 Neut # (Auto) 4600 Lymph # (Auto) 2200 [place] # (Auto) 800 Eos # (Auto) 200 Baso # (Auto) 0 Sodium 136 L Potassium 4.1 Chloride 107 Carbon Dioxide 23 BUN 8 Creatinine 0.60 Estimated GFR > 60.0 BUN/Creatinine Ratio 13.3 Glucose 98 Calcium 7.9 L Magnesium 2.0 Lipase 2150 H Assessment & Plan Assessment & Plan narrative: Hillary Malhotra is a 43-year-old female with no significant past medical history who presented to ED with abdominal pain and found to have acute pancreatitis of unclear etiology. 1. Acute pancreatitis, present on admission. Active. -Etiology unclear at this time. -Hemodynamically stable. -Initial lipase level 8383. Trending down now 2150. Continue to trend daily. -Abdominal ultrasound demonstrated questionable pancreatic lesion with prominence of the main pancreatic duct. Contrast enhanced CT of the abdomen is recommended for further evaluation. No cholelithiasis or acute cholecystitis. No free fluid within the abdomen. -CT abdomen pelvis with contrast demonstrated heterogeneous decreased density of the uncinate processes suspicious for possible acute pancreatitis.without evidence of pancreatic lesions. -MRCP demonstrated persistent prominence of the main pancreatic duct without intraluminal filling defects or identifiable pancreatic mass. Specifically, region of heterogeneous attenuation on recent comparison CT and questionable pancreatic lesion on ultrasound is not readily visible on this MRI. There is no dilatation of the common bile duct or intraluminal filling defects. -Lipid panel ruled out hypertriglyceridemia as a cause of pancreatitis. -Ordered morphine 2 mg IV every 3 hours as needed for pain and Zofran 4 mg IV every 6 hours as needed for nausea and vomiting. -Patient was NPO for bowel rest and will plan to slowly advance diet as tolerated to clears today. -Continue IVF NS 0.9 at 125 cc/hr. -Patient has EGD scheduled with GI specialist as outpatient on 12/06 and recommended she keep her appointment. Recommend repeat MR pancreatic protocol in 1-2 months and possible ERCP to assess pancreatic anatomy per her program services planner Dr. Cabrales. 2. Tobacco dependence, present on admission. Active. -Patient currently smokes about 7 cigarettes per day. -Refused nicotine patch. Discussed smoking including risks and cessation in detail. Recommend abstaining from smoking indefinitely. Disposition: Likely to discharge home in 1-2 days depending on work-up of acute pancreatitis and improvement with treatment, toleration of advancement in diet and pain control. Quality VTE Deep Vein Thrombosis/Pulmonary Embolism Present on Admission: No
--- NOTE | 2019-01-02 08:06 | P.PN_ITS ---
Subjective Date Patient Seen: 01/02/19 Interval history: Hillary Malhotra is a 43-year-old female with no significant past medical history who presented to ED with abdominal pain and found to have acute pancreatitis of unclear etiology. The patient is resting in bed comfortably. She endorses mild headache this mo rning which was relieved with Tylenol. She reports her nausea has resolved. She continues to have mild epigastric abdominal pain that is more positional and sharp/shooting in quality. She tolerated a clear liquid diet and will plan to slowly advanced today. She has no other complaints and denies headache, shortness of breath, chest pain, fever, chills, dysuria, diarrhea or constipation. She is voiding without difficulty. She is up ambulating minimally without assistance. Exam Vital Signs (past 8 hours): - 01/02/19 01:26 01/02/19 05:00 Temperature 98.0 F 98.2 F Pulse Rate 73 66 Respiratory Rate 16 16 Blood Pressure 104/56 L 100/56 L Pulse Oximetry 98 98 Oxygen Delivery Method Room Air Oxygen Flow Rate 0 Narrative Exam Narrative: General: Middle-aged female sitting in bed and in no acute distress, well- developed, well-nourished, appropriately interactive. HEENT: Normocephalic, atraumatic. External ears without defect. Pupils equal, round, and reactive to light. Anicteric sclerae, moist conjunctivae, and no lid lag. Oropharynx free of erythema and cobble stoning with moist mucosa. Neck: Supple with full range of motion. No lymphadenopathy or thyromegaly. Cardiovascular: Regular rate and rhythm without murmurs, rubs, or gallops appreciated. Pulmonary: Clear to auscultation bilaterally without crackles, wheezes, or rhonchi. Normal respiratory effort with no use of accessory muscles. Abdomen: Soft, bowel sounds present, mild tenderness to palpation in epigastrium slightly improved otherwise abdomen is nontender, nondistended. No hepatosplenomegaly or masses appreciated. Extremities: No clubbing, cyanosis, or edema. Skin: Normal temperature, turgor, and texture; no rash, ulcers, or subcutaneous nodules appreciated. Neurological: Cranial nerves grossly intact. Psychiatric: Normal mood and affect. Alert and oriented to person, place, and time. Objective Labs Result Diagrams: 01/02/19 04:50 01/02/19 04:50 Labs: Laboratory Results - last 24 hr 01/02/19 01/02/19 04:50 04:50 WBC 7.8 RBC 3.92 L Hgb 12.0 Hct 35.7 L MCV 91.2 MCH 30.5 MCHC 33.5 RDW 12.9 Plt Count 250 Neut % (Auto) 59.8 Lymph % (Auto) 27.9 [place] % (Auto) 9.8 Eos % (Auto) 2.2 Baso % (Auto) 0.3 Neut # (Auto) 4600 Lymph # (Auto) 2200 [place] # (Auto) 800 Eos # (Auto) 200 Baso # (Auto) 0 Sodium 136 L Potassium 4.1 Chloride 107 Carbon Dioxide 23 BUN 8 Creatinine 0.60 Estimated GFR > 60.0 BUN/Creatinine Ratio 13.3 Glucose 98 Calcium 7.9 L Magnesium 2.0 Lipase 2150 H Assessment & Plan Assessment & Plan narrative: Hillary Malhotra is a 43-year-old female with no significant past medical history who presented to ED with abdominal pain and found to have acute pancreatitis of unclear etiology. 1. Acute pancreatitis, present on admission. Active. -Etiology unclear at this time. -Hemodynamically stable. -Initial lipase level 8383. Trending down now 2150. Continue to trend daily. -Abdominal ultrasound demonstrated questionable pancreatic lesion with prominence of the main pancreatic duct. Contrast enhanced CT of the abdomen is recommended for further evaluation. No cholelithiasis or acute cholecystitis. No free fluid within the abdomen. -CT abdomen pelvis with contrast demonstrated heterogeneous decreased density of the uncinate processes suspicious for possible acute pancreatitis.without eviden ce of pancreatic lesions. -MRCP demonstrated persistent prominence of the main pancreatic duct without intraluminal filling defects or identifiable pancreatic mass. Specifically, region of heterogeneous attenuation on recent comparison CT and questionable pancreatic lesion on ultrasound is not readily visible on this MRI. There is no dilatation of the common bile duct or intraluminal filling defects. -Lipid panel ruled out hypertriglyceridemia as a cause of pancreatitis. -Ordered morphine 2 mg IV every 3 hours as needed for pain and Zofran 4 mg IV every 6 hours as needed for nausea and vomiting. -Patient was NPO for bowel rest and will plan to slowly advance diet as tolerated to clears today. -Continue IVF NS 0.9 at 125 cc/hr. -Patient has EGD scheduled with GI specialist as outpatient on 12/06 and recommended she keep her appointment. Recommend repeat MR pancreatic protocol in 1-2 months and possible ERCP to assess pancreatic anatomy per her reflexologist Dr. Cabrales. 2. Tobacco dependence, present on admission. Active. -Patient currently smokes about 7 cigarettes per day. -Refused nicotine patch. Discussed smoking including risks and cessation in detail. Recommend abstaining from smoking indefinitely. Disposition: Likely to discharge home in 1-2 days depending on work-up of acute pancreatitis and improvement with treatment, toleration of advancement in diet and pain control. Quality VTE Deep Vein Thrombosis/Pulmonary Embolism Present on Admission: No
[2019-01-02] MEDS: ENOXAPARIN 40 MG/0.4 ML SYRINGE SUBCUT (09:19)
[2019-01-02] MEDS: HYDROCODONE/ACET 5/325 TABLET 1 TAB PO (21:59)
--- NOTE | 2019-01-02 22:48 | PC.NURSE ---
pt ate her dinner and felt bloated afterwards. pain 5/10, medicated norco. independent in the room. IVF. call light in reach.
[2019-01-03] VITALS (7 sets, daily range): BP systolic 96–110; BP diastolic 57–75; PULSE 53–68; RESP 14–18; TEMP 36.3–36.8; O2SAT 96–100
--- NOTE | 2019-01-03 00:50 | PC.NURSE ---
2300- Pt admit for acute pancreatitis; on a soft low residual diet at this time. Denies any nausea, but states her stomach feels 'bloated', running NS as ordered into periph IV. Moving independently in room; on RA; no problems voiding.
[2019-01-03] MEDS: SODIUM CHLORIDE 0.9% 1,000 ML 125 ML IV ×2 (07:56→20:11)
[2019-01-03 08:07] LABS: Lipase 4228 U/L (23-300)
[2019-01-03] MEDS: ENOXAPARIN 40 MG/0.4 ML SYRINGE SUBCUT (11:07)
[2019-01-03] MEDS: HYDROCODONE/ACET 5/325 TABLET 1 TAB PO (13:29)
--- NOTE | 2019-01-03 16:28 | P.PN_ITS ---
Subjective Date Patient Seen: 01/03/19 Interval history: Hillary Malhotra is a 43-year-old female with no significant past medical history who presented to ED with abdominal pain and found to have acute pancreatitis of unclear etiology. The patient is resting in bed comfortably. The patient's diet was advanced to full liquids and soft diet yesterday afternoon. She ate mashed potatoes and reported nausea and abdominal pain afterward. Her lipase was elevated today at 4228. She continues to have mild abdominal pain and nausea. She has no other complaints and denies headache, shortness of breath, chest pain, fever, chills, dysuria, diarrhea or constipation. She is voiding without difficulty. She is up ambulating minimally without assistance. Exam Vital Signs (past 8 hours): - 01/03/19 08:40 01/03/19 11:56 01/03/19 15:39 Temperature 98.3 F 97.3 F L Pulse Rate 68 64 Respiratory Rate 14 18 Blood Pressure 108/75 110/62 Pulse Oximetry 97 100 96 Oxygen Delivery Method Room Air Oxygen Flow Rate 0 Narrative Exam Narrative: General: Middle-aged female sitting in bed comfortably and in no acute distress, well-developed, well-nourished, appropriately interactive. HEENT: Normocephalic, atraumatic. External ears without defect. Pupils equal, round, and reactive to light. Anicteric sclerae, moist conjunctivae, and no lid lag. Oropharynx free of erythema and cobble stoning with moist mucosa. Neck: Supple with full range of motion. No lymphadenopathy or thyromegaly. Cardiovascular: Regular rate and rhythm without murmurs, rubs, or gallops appreciated. Pulmonary: Clear to auscultation bilaterally without crackles, wheezes, or rhonchi. Normal respiratory effort with no use of accessory muscles. Abdomen: Soft, bowel sounds present, more apparent tenderness to palpation in epigastrium otherwise abdomen is nontender, nondistended. No rebound or rigidity. No hepatosplenomegaly or masses appreciated. Extremities: No clubbing, cyanosis, or edema. Skin: Normal temperature, turgor, and texture; no rash, ulcers, or subcutaneous nodules appreciated. Neurological: Cranial nerves grossly intact. Psychiatric: Normal mood and affect. Alert and oriented to person, place, and time. Objective Labs Result Diagrams: 01/02/19 04:50 01/02/19 04:50 Labs: Laboratory Results - last 24 hr 01/03/19 07:00 Lipase 4228 H D Assessment & Plan Assessment & Plan narrative: Hillary Malhotra is a 43-year-old female with no significant past medical history who presented to ED with abdominal pain and found to have acute pancreatitis of u nclear etiology. 1. Acute pancreatitis, present on admission. Active. -Etiology unclear at this time. -Hemodynamically stable. -Initial lipase level 8383. Trended back up from 2150 to 4228. Continue to trend daily. -Abdominal ultrasound demonstrated questionable pancreatic lesion with prominenc e of the main pancreatic duct. Contrast enhanced CT of the abdomen is recommended for further evaluation. No cholelithiasis or acute cholecystitis. No free fluid within the abdomen. -CT abdomen pelvis with contrast demonstrated heterogeneous decreased density of the uncinate processes suspicious for possible acute pancreatitis.without evidence of pancreatic lesions. -MRCP demonstrated persistent prominence of the main pancreatic duct without intraluminal filling defects or identifiable pancreatic mass. Specifically, region of heterogeneous attenuation on recent comparison CT and questionable pancreatic lesion on ultrasound is not readily visible on this MRI. There is no dilatation of the common bile duct or intraluminal filling defects. -Lipid panel ruled out hypertriglyceridemia as a cause of pancreatitis. -Ordered morphine 2 mg IV every 3 hours as needed for pain and Zofran 4 mg IV every 6 hours as needed for nausea and vomiting. Stopped hydrocodone for now. -Reinstituted NPO with minimal sips and chips for bowel rest and will plan to again slowly advance diet in 1-2 days. -Continue IVF NS 0.9 at 125 cc/hr. -Discussed patient with Dr. Zavala with her GI group at [facility] who agreed with patient management thus far and recommended continued conservative management and slower advancement of diet moving forward. Continue to trend lipase. She was scheduled for EGD/EUS outpatient on 01/05 for which he recommend she still have either to be rescheduled in 1 week or arranged for transfer and treat. Recommend repeat MR pancreatic protocol in 1-2 months per her chemical lab supervisor Dr. Cabrales. 2. Tobacco dependence, present on admission. Active. -Patient currently smokes about 7 cigarettes per day. -Refused nicotine patch. Discussed smoking including risks and cessation in detail. Recommend abstaining from smoking indefinitely. Disposition: Likely to discharge home in several days depending on improvement with treatment of acute pancreatitis. Quality VTE Deep Vein Thrombosis/Pulmonary Embolism Present on Admission: No
[2019-01-03] MEDS: MORPHINE 2 MG/ML INJ IV (21:18)
[2019-01-04] VITALS (9 sets, daily range): BP systolic 99–112; BP diastolic 54–63; PULSE 54–76; RESP 16–18; TEMP 36.5–37.2; O2SAT 96–100
--- NOTE | 2019-01-04 01:32 | PC.NURSE ---
2300- Pt ongoing treatment for acute pancreatitis; NPO diet at this time as liquids were not tolerated. Moving independently in room; VSS; NS running as ordered. Pt calls appropriately.
[2019-01-04] MEDS: SODIUM CHLORIDE 0.9% 1,000 ML 125 ML IV ×2 (03:53→19:47)
[2019-01-04] MEDS: MORPHINE 2 MG/ML INJ IV ×2 (06:03→22:30)
[2019-01-04 06:20] LABS: Add Manual Diff / Slide Review NO; Basophils Absolute Auto 0 /uL (0-100); Basophils Percent Auto 0.5 % (0-2); Eosinophils Absolute Auto 200 /uL (0-450); Eosinophils Percent Auto 2.9 % (2-4); Hematocrit 34.9 % (36-46); Hemoglobin 11.9 g/dL (12.0-16.0); Lymphocytes Absolute Auto 1600 /uL (1100-4500); Lymphocytes Percent Auto 23.8 % (25-40); Mean Corpuscular HGB Conc 34.1 % (30-36); Mean Corpuscular Hemoglobin 30.7 PG (26-34); Mean Corpuscular Volume 89.9 fL (80-100); Monocytes Absolute Auto 700 /uL (0-900); Monocytes Percent Auto 9.7 % (3-14); Neutrophils Absolute Auto 4200 /uL (1500-7000); Neutrophils Percent Auto 63.1 % (50-75); Platelet Count 227 X10^3/uL (150-400); Red Blood Cell Count 3.88 X10^6/uL (4.0-5.2); Red Cell Distribution Width 12.7 % (11.6-14.8); White Blood Cell Count 6.7 X10^3/uL (4.5-11.0)
[2019-01-04 06:34] LABS: BUN Creatinine Ratio 8.3 (6-22); Blood Urea Nitrogen 5 mg/dL (7-17); Calcium 8.1 mg/dL (8.4-10.2); Carbon Dioxide 25 mmol/L (22-32); Chloride 106 mmol/L (98-107); Estimated Glomerular Filt Rate > 60.0 mL/min (>60); Glucose 87 mg/dL (70-100); HEMOLYSIS < 15 (0-50); Magnesium 1.7 mg/dL (1.6-2.3); Potassium 3.4 mmol/L (3.4-5.1); Sodium 138 mmol/L (137-145)
[2019-01-04 06:52] LABS: Lipase 2644 U/L (23-300)
[2019-01-04 07:31] LABS: Procalcitonin < 0.05 ng/mL (<0.5)
[2019-01-04] MEDS: ENOXAPARIN 40 MG/0.4 ML SYRINGE SUBCUT (09:58)
--- NOTE | 2019-01-04 10:03 | PM.PN.1 ---
Subjective Date Patient Seen: 01/04/19 Interval history: Hillary Malhotra is a 43-year-old female with no significant past medical history who presented to ED with abdominal pain and found to have acute pancreatitis of unclear etiology. The patient is resting in bed comfortably. The patient continues to be on bowel rest with sips and chips only. Her lipase has dropped from 4228 to 2644. Her GI doctor and group at [facility] have rescheduled her EGD with EUS for February 02 due to scheduling conflicts as best as I can ascertain. It is unclear whether her pancreatitis will resolve completely as she likely has some anatomic abnormality of her pancreatic duct and has been having on again off again pancreatitis since September. She reports her abdominal pain and nausea have improved mildly. She reports she is irritable as she has not been eating. She has no other complaints and denies headache, shortness of breath, chest pain, fever, chills, dysuria, diarrhea or constipation. She is voiding without difficulty. She is up ambulating minimally without assistance. Exam Vital Signs (past 8 hours): - 01/04/19 03:57 01/04/19 07:00 01/04/19 08:30 Temperature 98.3 F 99 F Pulse Rate 76 64 Respiratory Rate 16 17 Blood Pressure 105/55 L 105/56 L Pulse Oximetry 98 97 97 Oxygen Delivery Method Room Air Oxygen Flow Rate 0 Narrative Exam Narrative: General: Middle-aged female sitting in bed comfortably and in no acute distress, well-developed, well-nourished, appropriately interactive. HEENT: Normocephalic, atraumatic. External ears without defect. Pupils equal, round, and reactive to light. Anicteric sclerae, moist conjunctivae, and no lid lag. Oropharynx free of erythema and cobble stoning with moist mucosa. Neck: Supple with full range of motion. No lymphadenopathy or thyromegaly. Cardiovascular: Regular rate and rhythm without murmurs, rubs, or gallops appreciated. Pulmonary: Clear to auscultation bilaterally without crackles, wheezes, or rhonchi. Normal respiratory effort with no use of accessory muscles. Abdomen: Soft, bowel sounds present, now mild tenderness to palpation in epigastrium otherwise abdomen is nontender, nondistended. No rebound or rigidity. No hepatosplenomegaly or masses appreciated. Extremities: No clubbing, cyanosis, or edema. Skin: Normal temperature, turgor, and texture; no rash, ulcers, or subcutaneous nodules appreciated. Neurological: Cranial nerves grossly intact. Psychiatric: Normal mood and affect. Alert and oriented to person, place, and time. Objective Labs Result Diagrams: 01/04/19 05:39 01/04/19 05:39 Labs: Laboratory Results - last 24 hr 01/04/19 01/04/19 01/04/19 05:39 05:39 05:39 WBC 6.7 RBC 3.88 L Hgb 11.9 L Hct 34.9 L MCV 89.9 MCH 30.7 MCHC 34.1 RDW 12.7 Plt Count 227 Neut % (Auto) 63.1 Lymph % (Auto) 23.8 L [place] % (Auto) 9.7 Eos % (Auto) 2.9 Baso % (Auto) 0.5 Neut # (Auto) 4200 Lymph # (Auto) 1600 [place] # (Auto) 700 Eos # (Auto) 200 Baso # (Auto) 0 Sodium 138 Potassium 3.4 Chloride 106 Carbon Dioxide 25 BUN 5 L Creatinine 0.60 Estimated GFR > 60.0 BUN/Creatinine Ratio 8.3 Glucose 87 Calcium 8.1 L Magnesium 1.7 Lipase 2644 H Procalcitonin < 0.05 Assessment & Plan Assessment & Plan narrative: Hillary Malhotra is a 43-year-old female with no significant past medical history who presented to ED with abdominal pain and found to have acute pancreatitis of unclear etiology. 1. Acute pancreatitis, present on admission. Active. -Etiology unclear at this time. -Hemodynamically stable. -Initial lipase level 8383. Trended back up from 2644. Continue to trend daily. -Abdominal ultrasound demonstrated questionable pancreatic lesion with prominence of the main pancreatic duct. Contrast enhanced CT of the abdomen is recommended for further evaluation. No cholelithiasis or acute cholecystitis. No free fluid within the abdomen. -CT abdomen pelvis with contrast demonstrated heterogeneous decreased density of the uncinate processes suspicious for possible acute pancreatitis.without evidence of pancreatic lesions. -MRCP demonstrated persistent prominence of the main pancreatic duct without intraluminal filling defects or identifiable pancreatic mass. Specifically, region of heterogeneous attenuation on recent comparison CT and questionable pancreatic lesion on ultrasound is not readily visible on this MRI. There is no dilatation of the common bile duct or intraluminal filling defects. -Lipid panel ruled out hypertriglyceridemia as a cause of pancreatitis. -Ordered morphine 2 mg IV every 3 hours as needed for pain and Zofran 4 mg IV every 6 hours as needed for nausea and vomiting. Stopped hydrocodone for now. -Reinstituted NPO with minimal sips and chips for bowel rest and will plan to again slowly advance diet to clears tomorrow. -Continue IVF NS 0.9 at 125 cc/hr. -Discussed patient with Dr. Zavala with her GI group at [facility] who agreed with the patients management thus far and recommended continued conservative management and slower advancement of diet moving forward. Continue to trend lipase. She was scheduled for EGD/EUS outpatient on 01/05 for which he recommend she still have either to be rescheduled in 1 week or arranged for transfer and treat, however, now moved to February 02 due to scheduling conflicts. Recommend repeat MR pancreatic protocol in 1-2 months per her medical library assistant Dr. Cabrales. 2. Tobacco dependence, present on admission. Active. -Patient currently smokes about 7 cigarettes per day. -Refused nicotine patch. Discussed smoking including risks and cessation in detail. Recommend abstaining from smoking indefinitely. Disposition: Likely to discharge home in several days depending on improvement with treatment of acute pancreatitis. Quality VTE Deep Vein Thrombosis/Pulmonary Embolism Present on Admission: No
[2019-01-04] MEDS: ONDANSETRON 4 MG/2 ML INJ IV (19:47)
[2019-01-05] VITALS (9 sets, daily range): BP systolic 98–116; BP diastolic 53–69; PULSE 54–69; RESP 16–18; TEMP 36.1–36.9; O2SAT 95–99
[2019-01-05] MEDS: SODIUM CHLORIDE 0.9% 1,000 ML 125 ML IV ×3 (03:34→20:50)
[2019-01-05] MEDS: MORPHINE 2 MG/ML INJ IV ×2 (03:36→22:16)
[2019-01-05 07:10] LABS: Lipase 1349 U/L (23-300)
[2019-01-05] MEDS: ENOXAPARIN 40 MG/0.4 ML SYRINGE SUBCUT (08:37)
[2019-01-05] MEDS: ACETAMINOPHEN 325 MG TABLET 975 MG PO (08:37)
[2019-01-05] MEDS: SENNOSIDES 8.6 MG TABLET PO (09:43)
[2019-01-05] MEDS: DOCUSATE 100 MG CAPSULE PO (09:43)
--- NOTE | 2019-01-05 11:56 | CM.DPNOTE ---
Pt was discussed in multi-disciplinary rounds this morning. Pt requires an ERCP, transfer and treat was attempted yesterday but trnsf was not available, this procedure is now scheduled at [facility] for February 02. According to Dr Moran, pt works at as a laborer cutting tool. It is expected that pt will continue to have high lipase and recurrence of her symptoms d/t her acute pancreatitis until she is able to have the ERCP to determine next steps (?) Pt is indp and active at baseline and return home w/supportive family is expected. Diet will be advanced very slowly, according to Dr Moran. KELLEN Bradford
--- NOTE | 2019-01-05 12:46 | DIET.PN ---
Met with pt per consult request to provide education on diet for pancreatitis. Currently taking clear liquid diet with plan to advance to low fat diet tomorrow. Will remain on this diet until sees GI specialist (January) to assess the problem. Dx: pancreatitis, unknown etiology Wt 70.7kg Usual Wt: 70.7kg BMI: 23 Assessment: Pt at very high risk of nutritional depletion; micronutrient deficiencies r/t pancreatitis malabsorption and difficulty consuming adequate diet. Intervention: Provided education on diet to decrease symptoms of pancreatitis - very low in fat, with emphasis on easy to digest fats (MCTs). Stressed importance of maintaining weight. Gave suggestions for nutritional beverages designed for digestive disorders - Vital AF 1.2, Vital 15 or Vital high protein - which may all be purchased through [employer]. Pt already has MCT oil at home r/t using while on a keto diet. The advantage of MCT oil is it's a calorie dense food that's more easily digested - thus adding to diet to help keep wt on. Plan: Will advance to very low fat diet in morning. Gave written instructions for pancreatitis diet. Suggest limiting to 25g fat per day; spread through the day. May try increasing up to 50g per day if tolerates, but would emphasize MCTs as choice of added fat. Limit high fiber/high roughage foods if pt feels they cause discomfort. Pt may call w/further questions. Gave contact info
--- NOTE | 2019-01-05 14:27 | PC.NURSE ---
1430 Pt remainas on bedrest. Denies pain, taking in clear liq diet w/o n/v. IVF cont. No c/o.
--- NOTE | 2019-01-05 15:31 | PM.PN.1 ---
Subjective Date Patient Seen: 01/05/19 Interval history: Hillary Malhotra is a 43-year-old female with no significant past medical history who presented to ED with abdominal pain and found to have acute pancreatitis of unclear etiology. The patient is resting in bed comfortably. The patient reports her pain has improved (with still some positional component) and her nausea is resolved. Patient's diet has been advanced to clears and she is feeling much better as she is no longer as hungry. Consulted dietitian to provide nutritional benefit with clears, as well as, strict recommendations for low-fat diet. The patient has no complaints and denies headache, shortness of breath, chest pain, nausea, vomiting, fever, chills, dysuria, diarrhea or constipation. She is voiding without difficulty. She is up ambulating without assistance. Exam Vital Signs (past 8 hours): - 01/05/19 11:35 Temperature 98.4 F Pulse Rate 61 Respiratory Rate 18 Blood Pressure 116/69 Pulse Oximetry 99 Oxygen Delivery Method Room Air Oxygen Flow Rate 0 Narrative Exam Narrative: General: Middle-aged female sitting in bed comfortably and in no acute distress, well-developed, well-nourished, appropriately interactive. HEENT: Normocephalic, atraumatic. External ears without defect. Pupils equal, round, and reactive to light. Anicteric sclerae, moist conjunctivae, and no lid lag. Oropharynx free of erythema and cobble stoning with moist mucosa. Neck: Supple with full range of motion. No lymphadenopathy or thyromegaly. Cardiovascular: Regular rate and rhythm without murmurs, rubs, or gallops appreciated. Pulmonary: Clear to auscultation bilaterally without crackles, wheezes, or rhonchi. Normal respiratory effort with no use of accessory muscles. Abdomen: Soft, bowel sounds present, no appreciable tenderness, nondistended. No rebound or rigidity. No hepatosplenomegaly or masses appreciated. Extremities: No clubbing, cyanosis, or edema. Skin: Normal temperature, turgor, and texture; no rash, ulcers, or subcutaneous nodules appreciated. Neurological: Cranial nerves grossly intact. Psychiatric: Normal mood and affect. Alert and oriented to person, place, and time. Objective Labs Result Diagrams: 01/04/19 05:39 01/04/19 05:39 Labs: Laboratory Results - last 24 hr 01/05/19 06:44 Lipase 1349 H Assessment & Plan Assessment & Plan narrative: Hillary Malhotra is a 43-year-old female with no significant past medical history who presented to ED with abdominal pain and found to have acute pancreatitis of unclear etiology. 1. Acute pancreatitis, present on admission. Active. -Etiology unclear at this time. -Hemodynamically stable. -Initial lipase level 8383. Trending down now 1349. Continue to trend daily. -Abdominal ultrasound demonstrated questionable pancreatic lesion with prominence of the main pancreatic duct. Contrast enhanced CT of the abdomen is recommended for further evaluation. No cholelithiasis or acute cholecystitis. No free fluid within the abdomen. -CT abdomen pelvis with contrast demonstrated heterogeneous decreased density of the uncinate processes suspicious for possible acute pancreatitis.without evidence of pancreatic lesions. -MRCP demonstrated persistent prominence of the main pancreatic duct without intraluminal filling defects or identifiable pancreatic mass. Specifically, region of heterogeneous attenuation on recent comparison CT and questionable pancreatic lesion on ultrasound is not readily visible on this MRI. There is no dilatation of the common bile duct or intraluminal filling defects. -Lipid panel ruled out hypertriglyceridemia as a cause of pancreatitis. -Ordered morphine 2 mg IV every 3 hours as needed for pain and Zofran 4 mg IV every 6 hours as needed for nausea and vomiting. Stopped hydrocodone for now. -Advance diet to clears liquids and consulted dietitian for specific increased nutritional benefits with clears and to provide strict low-fat diet recommendations when advanced to soft diet likely tomorrow. -Continue IVF NS 0.9 at 125 cc/hr. -Discussed patient with Dr. Zavala with her GI group at [facility] who agreed with the patients management thus far and recommended continued conservative management and slower advancement of diet moving forward. Continue to trend lipase. She was scheduled for EGD/EUS outpatient on 01/05 for which he recommend she still have either to be rescheduled in 1 week or arranged for transfer and treat, however, now her appointment has been moved to February 02 due to scheduling conflicts for unclear procedure but possibly ERCP? Recommend repeat MR pancreatic protocol in 1-2 months. 2. Tobacco dependence, present on admission. Active. -Patient currently smokes about 7 cigarettes per day. -Refused nicotine patch. Discussed smoking including risks and cessation in detail. Recommend abstaining from smoking indefinitely. Disposition: Likely to discharge home in 1-2 days depending on improvement of acute pancreatitis with advancement of diet. If patient has another flare with advancement will plan to discuss with GI and possibly transfer. Quality VTE Deep Vein Thrombosis/Pulmonary Embolism Present on Admission: No
[2019-01-06] VITALS (8 sets, daily range): BP systolic 103–108; BP diastolic 55–76; PULSE 59–72; RESP 16–18; TEMP 36.6–37.1; O2SAT 97–99
[2019-01-06] MEDS: SODIUM CHLORIDE 0.9% 1,000 ML 125 ML IV ×2 (05:44→23:29)
--- NOTE | 2019-01-06 06:47 | DIET.PN ---
Per RN notes pt tolerated clear liquids w/o N/V. Eating 100% meals. Advanced diet this morning to fat restricted (25g/day) per discussion w/Dr. Moran.
[2019-01-06 07:03] LABS: Lipase 1010 U/L (23-300)
[2019-01-06] MEDS: ENOXAPARIN 40 MG/0.4 ML SYRINGE SUBCUT (09:56)
--- NOTE | 2019-01-06 10:45 | P.PN_ITS ---
Subjective Date Patient Seen: 01/06/19 Time Patient Seen: 10:45 Interval history: She is seen in her room this morning to follow-up her pancreatitis and apparent new depression. She is extremely negative about this whole process, understandably frustrated with the pace of the workup and the improvements so far. She tells me, in non-negotiable statements, that she is sure that the grapes and oatmeal she is eating this morning will make her lipase go up and that her future is quite dismal. The lipase has dropped to 1010. The magnesium from yesterday was 1.7. She will be started on Creon today. Exam Vital Signs (past 8 hours): - 01/06/19 04:12 01/06/19 07:45 01/06/19 08:30 Temperature 97.9 F 98.0 F Pulse Rate 69 61 Respiratory Rate 16 16 Blood Pressure 103/68 108/76 Pulse Oximetry 99 98 98 Oxygen Delivery Method Room Air Oxygen Flow Rate 0 Narrative Exam Narrative: Heart is regular rate and rhythm without murmur. Lungs are clear to auscultation bilaterally. Abdomen is soft, bowel sounds positive, nontender, no organomegaly. Extremities have no ankle edema. She is alert and oriented x3. She is in no apparent distress but is in a very negative frame of mind, unable to see any hope for her future, quite bored by the slow wait for her pancreas to tolerate eating, improve, etc. Objective Labs Result Diagrams: 01/04/19 05:39 01/04/19 05:39 Labs: Laboratory Results - last 24 hr 01/06/19 06:33 Lipase 1010 H Assessment & Plan Assessment & Plan narrative: 1. Acute pancreatitis, present on admission. A ctive. -Etiology remains unclear at this time. -Initial lipase level 8383. Trending down now 1010. Continue to trend daily. -Abdominal ultrasound demonstrated questionable pancreatic lesion with pro minence of the main pancreatic duct. Contrast enhanced CT of the abdomen is recommended for further evaluation. No cholelithiasis or acute cholecystitis. No free fluid within the abdomen. -CT abdomen pelvis with contrast demonstrated heterogeneous decreased density of the uncinate processes suspicious for possible acute pancreatitis.without evidence of pancreatic lesions. -MRCP demonstrated persistent prominence of the main pancreatic duct without intraluminal filling defects or identifiable pancreatic mass. Specifically, region of heterogeneous attenuation on recent comparison CT and questionable pancreatic lesion on ultrasound is not readily visible on this MRI. There is no dilatation of the common bile duct or intraluminal filling defects. -Lipid panel ruled out hypertriglyceridemia as a cause of pancreatitis. -Continues on morphine 2 mg IV every 3 hours as needed for pain and Zofran 4 mg IV every 6 hours as needed for nausea and vomiting. Stopped hydrocodone for now. -Advanced diet to soft diet. Low fat. -Continue IVF NS 0.9 at 125 cc/hr. -Dr. Moran discussed patient with Dr. Zavala with her GI group at [facility] yesterday, who agreed with the patients management thus far and recommended continued conservative management and slower advancement of diet moving forward. Continue to trend lipase. She was scheduled for EGD/EUS outpatient on 01/05 for which he recommend she still have either to be rescheduled in 1 week or arranged for transfer and treat, however, now her appointment has been moved to February 02 due to scheduling conflicts for unclear p rocedure but possibly ERCP? Recommend repeat MR pancreatic protocol in 1-2 months. 2. Tobacco dependence, present on admission. Active. -Patient currently smokes about 7 cigarettes per day. -Refused nicotine patch. Discussed smoking including risks and cessation in detail. Recommend abstaining from smoking indefinitely. 3. Depression - Consider Antidepressant therapy and counseling - She is understandably quite negative about the measured (slow) pace of this workup process and her improvements. Disposition: Likely to discharge home in 1-2 days depending on improvement of acute pancreatitis with advancement of diet. If patient has another flare with advancement will plan to discuss with GI and possibly transfer. Quality VTE Deep Vein Thrombosis/Pulmonary Embolism Present on Admission: No
[2019-01-06] MEDS: LIPASE/PROTEASE/AMYLASE 5/17/24 CAP PO ×2 (12:04→17:19)
--- NOTE | 2019-01-06 15:19 | CM.SWNOTE ---
DCP Cont. KELLEN met with pt to clarify what her understanding was for her discharge plan, as well as to assess depression and offer support as needed. Pt expressed frustration about not being discharged yet, and insists that there is nothing anyone can do for her until she has the pancreatic test at [facility] on February 02. She feels anxious to get home, and acknowledges that her depressed mood is purely situational and relates directly to being in the hospital for so long. Pt also feels that she is not getting a clear answer about what the discharge plan is, and when she will go home. LEGAL RECRUITER met with Dr. Craig, hospitalist, who states that pt will be discharged in 1-2 days, that her intake and lipase numbers are being monitored to ensure that she can tolerate food ok prior to being discharged. KELLEN met again with pt and clarified that she will be going home within the next few days, and that she will then f/u on her own for the February 02 [facility] appt. No further needs identified at this time.
--- NOTE | 2019-01-06 16:08 | DIET.PN ---
Pt reports breakfast and lunch have been good; no pain. Fat intake has been kept well below 25g for the day, including fat in dinner which is yet to come.
[2019-01-07] VITALS (7 sets, daily range): BP systolic 91–103; BP diastolic 56–64; PULSE 55–70; RESP 16–18; TEMP 36.3–36.7; O2SAT 96–99
[2019-01-07 06:39] LABS: Add Manual Diff / Slide Review NO; Basophils Absolute Auto 0 /uL (0-100); Basophils Percent Auto 0.7 % (0-2); Eosinophils Absolute Auto 200 /uL (0-450); Eosinophils Percent Auto 3.2 % (2-4); Hematocrit 35.3 % (36-46); Hemoglobin 11.9 g/dL (12.0-16.0); Lymphocytes Absolute Auto 1900 /uL (1100-4500); Lymphocytes Percent Auto 28.7 % (25-40); Mean Corpuscular HGB Conc 33.7 % (30-36); Mean Corpuscular Hemoglobin 30.3 PG (26-34); Mean Corpuscular Volume 89.9 fL (80-100); Monocytes Absolute Auto 600 /uL (0-900); Monocytes Percent Auto 8.7 % (3-14); Neutrophils Absolute Auto 3900 /uL (1500-7000); Neutrophils Percent Auto 58.7 % (50-75); Platelet Count 230 X10^3/uL (150-400); Red Blood Cell Count 3.92 X10^6/uL (4.0-5.2); Red Cell Distribution Width 12.8 % (11.6-14.8); White Blood Cell Count 6.7 X10^3/uL (4.5-11.0)
[2019-01-07 07:00] LABS: Lipase 798 U/L (23-300); Magnesium 1.8 mg/dL (1.6-2.3)
[2019-01-07 07:01] LABS: Alanine Aminotransferase 37 IU/L (9-52); Albumin Globulin Ratio 1.4 (1.0-2.8); Alkaline Phosphatase 65 U/L (38-126); Aspartate Aminotransferase 35 IU/L (14-36); BUN Creatinine Ratio 11.7 (6-22); Bilirubin Total 0.1 mg/dL (0.2-1.3); Blood Urea Nitrogen 7 mg/dL (7-17); Calcium 8.2 mg/dL (8.4-10.2); Carbon Dioxide 26 mmol/L (22-32); Chloride 106 mmol/L (98-107); Estimated Glomerular Filt Rate > 60.0 mL/min (>60); Globulin 2.2 g/dL (1.7-4.1); Glucose 88 mg/dL (70-100); HEMOLYSIS < 15 (0-50); Potassium 3.6 mmol/L (3.4-5.1); Sodium 138 mmol/L (137-145); Total Protein 5.2 g/dL (6.3-8.2)
[2019-01-07] MEDS: SODIUM CHLORIDE 0.9% 1,000 ML 125 ML IV (07:17)
[2019-01-07] MEDS: LIPASE/PROTEASE/AMYLASE 5/17/24 CAP PO ×2 (08:31→12:27)
[2019-01-07] MEDS: ENOXAPARIN 40 MG/0.4 ML SYRINGE SUBCUT (08:32)
--- NOTE | 2019-01-07 09:24 | PC.NURSE ---
Addendum entered by Annmarie Sung R.N. 01/07/19 10:43: Correction: Last BM charted prior to today was 12/30, not yesterday as indicated in previous note. Original Note: GI: Patient's last charted BM was charted as yesterday. This writer editor verified with patient that she has been moving her bowels, had a BM yesterday and this morning. Charting updated to reflect the same.
--- NOTE | 2019-01-07 16:16 | PM.DS.1 ---
History of Present Illness Chief complaint: pancreatitis Narrative: 43-year-old female with no past medical history presented to ED with abdominal pain. patient states the pain started roughly about a week ago, progressively has gotten worse. The pain is in the epigastric region, radiating to the back area. It is constant, sharp, 7/10 severity, worsened with p.o. food intake. The patient denies any fevers or chills, headache, dizziness, blurry vision. Denies any cough, shortness of breath, sore throat, chest pain. Patient denies any vomiting but states she has been nauseous. Denies any diarrhea, constipation, or symptoms. Patient states she initially started having the symptoms in September, during which time she went to Emergency Department and was told she had mild pancreatitis. She was sent home with instructions to drink clear liquids only until symptoms resolved. Patient states symptoms would resolve however when she started eating again symptoms would return. For the past week patient states she has not taken much p.o. food, and therefore has lost 5 lb. The etiology of patient's pancreatitis is yet to be determined. Patient does have an appointment with LIA[facility] Elizalde for EGD in 5 days. Patient is a chronic smoker however only consumes alcohol on extremely cage in, once or twice a month and in small doses. Denies any other drug use. In ED, patient's vital signs revealed temperature 97.8? F, pulse 58, respiratory rate 18, blood pressure 102/63, saturating 100% on room air. Lab work revealed completely benign CBC without leukocytosis. CMP was also completely benign. Lipase however was elevated at 8383 (which is a change from 03/10 in September 2018). Abdominal ultrasound did not reveal any stones or bile duct dilations. There was a question of possible lesion on the pancreatic head, and therefore CT abdomen pelvis was performed which ruled out pancreatic lesion (however final imaging read is pending). Patient was given 2 L bolus and Dilaudid IV and was admitted to Medr unit for further management of acute pancreatitis. Discharge Providers Date of admission: 12/31/18 08:04 Discharge Date: 01/07/19 Primary care physician: Supryia Bullock DO Consults: 12/31/18 08:36 Consult to Dietitian, Adult Routine Comment: Reason For Exam: pancreatitis 01/05/19 11:01 Consult to Dietitian, Adult Routine Comment: Reason For Exam: LOW fat diet recommendations for pancreatitis, Discharge provider: Mark Dia MD Summary Discharge Diagnosis: 1. Acute on chronic pancreatitis, undetermined etiology 2. Prominence of main pancreatic duct on ultrasound and MRCP 2. Tobacco dependence Hospital Course: Patient admitted due to acute abdominal pain but has been dealing with this since early September. She was treated conservatively with bowel rest, IV pain medication, and IV fluids. Initial lipase over a 1000 and has been trending down. Lipid panel ruled out hypertriglyceridemia as a cause of pancreatitis. Imaging studies as follows: -Abdominal ultrasound demonstrated questionable pancreatic lesion with prominence of the main pancreatic duct. Contrast enhanced CT of the abdomen is recommended for further evaluation. No cholelithiasis or acute cholecystitis. No free fluid within the abdomen. -CT abdomen pelvis with contrast demonstrated heterogeneous decreased density of the uncinate processes suspicious for possible acute pancreatitis.without evidence of pancreatic lesions. -MRCP demonstrated persistent prominence of the main pancreatic duct without intraluminal filling defects or identifiable pancreatic mass. Specifically, region of heterogeneous attenuation on recent comparison CT and questionable pancreatic lesion on ultrasound is not readily visible on this MRI. There is no dilatation of the common bile duct or intraluminal filling defects. Patient is now tolerating a general diet with complete resolution of abdominal symptoms. She feels the pancreatic enzymes have helped. She is scheduled to have outpatient endoscopic ultrasound at [facility] in 1 week. Status at Discharge Cognitive/behavioral status at discharge: oriented Functional status at discharge: independent ambulation Overall status at discharge: patient is back to baseline Time Spent with Patient Greater than 30 minutes Exam Vital Signs (past 8 hours): - 01/07/19 08:51 01/07/19 09:15 01/07/19 12:30 Temperature 97.9 F 97.8 F Pulse Rate 55 L 63 Respiratory Rate 16 16 Blood Pressure 91/57 L 96/61 Pulse Oximetry 96 96 99 01/07/19 15:30 Temperature 97.3 F L Pulse Rate 70 Respiratory Rate 16 Blood Pressure 103/64 Pulse Oximetry 98 Oxygen Delivery Method Room Air Oxygen Flow Rate 0 Objective Labs Result Diagrams: 01/07/19 06:17 01/07/19 06:17 Labs: Laboratory Results - last 24 hr 01/07/19 01/07/19 01/07/19 06:17 06:17 06:17 WBC 6.7 RBC 3.92 L Hgb 11.9 L Hct 35.3 L MCV 89.9 MCH 30.3 MCHC 33.7 RDW 12.8 Plt Count 230 Neut % (Auto) 58.7 Lymph % (Auto) 28.7 [place] % (Auto) 8.7 Eos % (Auto) 3.2 Baso % (Auto) 0.7 Neut # (Auto) 3900 Lymph # (Auto) 1900 [place] # (Auto) 600 Eos # (Auto) 200 Baso # (Auto) 0 Sodium 138 Potassium 3.6 Chloride 106 Carbon Dioxide 26 BUN 7 Creatinine 0.60 Estimated GFR > 60.0 BUN/Creatinine Ratio 11.7 Glucose 88 Calcium 8.2 L Magnesium 1.8 Total Bilirubin 0.1 L AST 35 ALT 37 Alkaline Phosphatase 65 Total Protein 5.2 L Albumin 3.0 L Globulin 2.2 Albumin/Globulin Ratio 1.4 Lipase 798 H Discharge Plan Discharge Plan Patient Disposition: Home Discharge Med Rec/Prescriptions Prescriptions: New Creon 12,000-38,000 -60,000 unit capsule,delayed release(DR/EC) 1 cap PO TID Qty: 90 RF: 0 Continued hydrocodone-acetaminophen [[place]] 5-325 mg tablet 1 tab PO Q4-6H PRN (Reason: pain) Qty: 15 RF: 0 ondansetron 4 mg tablet,disintegrating 4 mg PO BID-TID PRN (Reason: nausea and vomiting) Qty: 12 RF: 0 Follow up/Referrals: Supriya Bullock DO [Primary Care Provider] - Provider Discharge Instructions Diet: Diet as Tolerated Discharge Data Primary Care Provider: Supriya Bullock Attending Provider: Dina Bro Admit Date/Time: 12/31/18 08:04 Quality VTE Deep Vein Thrombosis/Pulmonary Embolism Present on Admission: No
== END 2019-01-07 16:50 | disposition home or self-care (01) | DRG 440 ==
LOC: ED 07:49 → AC 08:05
PROVIDERS: Family Medicine; Internal Medicine; Admitting Provider Internal Medicine; Emergency Provider Emergency Medicine; PCP Family Medicine; Visit Provider Internal Medicine
DX: K85.90 Acute pancreatitis without necrosis or infection, unspecified (principal); K86.89 Other specified diseases of pancreas; F32.89 Other specified depressive episodes; F17.210 Nicotine dependence, cigarettes, uncomplicated
CPT/HCPCS: 36415; 36591; 74170; 74181; 76705; 80048; 80053; 80061; 81003; 83615; 83690; 83735; 84145; 85025; 94762; 96361; 96374; 96375; 99283; 99285; A9270; C9113; J1170; J1650; J2270; J2405; Q9967

== ENCOUNTER → 2019-01-13 21:33 | Outpatient (ROUT) | payer OTHER, SELFPAY ==
[2018-12-31 08:26] VITALS: BMI 22.8
[2019-01-13 21:55] LABS: Alanine Aminotransferase 28 IU/L (9-52); Albumin 4.2 g/dL (3.5-5.0); Albumin Globulin Ratio 1.4 (1.0-2.8); Alkaline Phosphatase 67 U/L (38-126); Amylase 143 U/L (30-110); Aspartate Aminotransferase 17 IU/L (14-36); Bilirubin Total 0.3 mg/dL (0.2-1.3); Blood Urea Nitrogen 20 mg/dL (7-17); Calcium 9.7 mg/dL (8.4-10.2); Carbon Dioxide 30 mmol/L (22-32); Chloride 100 mmol/L (98-107); Estimated Glomerular Filt Rate > 60.0 mL/min (>60); Globulin 2.9 g/dL (1.7-4.1); Glucose 98 mg/dL (70-100); HEMOLYSIS < 15 (0-50); Lipase 948 U/L (23-300); Potassium 4.4 mmol/L (3.4-5.1); Sodium 137 mmol/L (137-145); Total Protein 7.1 g/dL (6.3-8.2)
== END ==
PROVIDERS: PCP Family Medicine; Visit Provider Family Medicine
DX: K12.0 Recurrent oral aphthae (principal)
CPT/HCPCS: 36415; 80053; 82150; 83690

== ENCOUNTER → 2019-01-27 22:35 | Outpatient (CLI) | payer OTHER, SELFPAY ==
[2018-12-31 08:26] VITALS: BMI 22.8
[2019-01-27 23:05] LABS: Alanine Aminotransferase 20 IU/L (9-52); Albumin 4.2 g/dL (3.5-5.0); Albumin Globulin Ratio 1.5 (1.0-2.8); Alkaline Phosphatase 66 U/L (38-126); Amylase 157 U/L (30-110); Aspartate Aminotransferase 19 IU/L (14-36); Bilirubin Total 0.3 mg/dL (0.2-1.3); Blood Urea Nitrogen 20 mg/dL (7-17); Calcium 9.5 mg/dL (8.4-10.2); Carbon Dioxide 29 mmol/L (22-32); Chloride 101 mmol/L (98-107); Estimated Glomerular Filt Rate > 60.0 mL/min (>60); Globulin 2.8 g/dL (1.7-4.1); Glucose 118 mg/dL (70-100); HEMOLYSIS < 15 (0-50); Lipase 900 U/L (23-300); Potassium 4.2 mmol/L (3.4-5.1); Sodium 137 mmol/L (137-145)
== END ==
PROVIDERS: PCP Family Medicine; Visit Provider Family Medicine
DX: K12.0 Recurrent oral aphthae (principal); K85.90 Acute pancreatitis without necrosis or infection, unspecified
CPT/HCPCS: 36415; 80053; 82150; 83690

== ENCOUNTER → 2019-02-10 20:31 | Outpatient (CLI) | payer OTHER, SELFPAY ==
[2018-12-31 08:26] VITALS: BMI 22.8
[2019-02-10 21:29] LABS: Alanine Aminotransferase 23 IU/L (9-52); Albumin 4.2 g/dL (3.5-5.0); Albumin Globulin Ratio 1.6 (1.0-2.8); Alkaline Phosphatase 62 U/L (38-126); Amylase 133 U/L (30-110); Aspartate Aminotransferase 23 IU/L (14-36); BUN Creatinine Ratio 21.1 (6-22); Bilirubin Total 0.2 mg/dL (0.2-1.3); Blood Urea Nitrogen 19 mg/dL (7-17); Calcium 9.3 mg/dL (8.4-10.2); Carbon Dioxide 28 mmol/L (22-32); Chloride 103 mmol/L (98-107); Estimated Glomerular Filt Rate > 60.0 mL/min (>60); Globulin 2.6 g/dL (1.7-4.1); Glucose 107 mg/dL (70-100); HEMOLYSIS < 15 (0-50); Lipase 597 U/L (23-300); Sodium 138 mmol/L (137-145); Total Protein 6.8 g/dL (6.3-8.2)
== END ==
PROVIDERS: Visit Provider Family Medicine
DX: K12.0 Recurrent oral aphthae (principal); K85.90 Acute pancreatitis without necrosis or infection, unspecified
CPT/HCPCS: 36415; 80053; 82150; 83690

== ENCOUNTER → 2019-02-17 00:17 | Outpatient (CLI) | payer OTHER, SELFPAY ==
[2018-12-31 08:26] VITALS: BMI 22.8
[2019-02-17 00:48] LABS: Alanine Aminotransferase 26 IU/L (9-52); Albumin 4.3 g/dL (3.5-5.0); Albumin Globulin Ratio 1.5 (1.0-2.8); Alkaline Phosphatase 74 U/L (38-126); Amylase 109 U/L (30-110); Aspartate Aminotransferase 22 IU/L (14-36); Bilirubin Total 0.2 mg/dL (0.2-1.3); Blood Urea Nitrogen 14 mg/dL (7-17); Calcium 9.2 mg/dL (8.4-10.2); Carbon Dioxide 32 mmol/L (22-32); Chloride 103 mmol/L (98-107); Estimated Glomerular Filt Rate > 60.0 mL/min (>60); Globulin 2.8 g/dL (1.7-4.1); Glucose 88 mg/dL (70-100); HEMOLYSIS < 15 (0-50); Lipase 394 U/L (23-300); Potassium 4.1 mmol/L (3.4-5.1); Sodium 142 mmol/L (137-145); Total Protein 7.1 g/dL (6.3-8.2)
== END ==
PROVIDERS: Visit Provider Family Medicine
DX: K12.0 Recurrent oral aphthae (principal); K85.90 Acute pancreatitis without necrosis or infection, unspecified
CPT/HCPCS: 36415; 80053; 82150; 83690

== ENCOUNTER → 2019-02-24 20:35 | Outpatient (CLI) | payer OTHER, SELFPAY ==
[2018-12-31 08:26] VITALS: BMI 22.8
[2019-02-24 21:17] LABS: Alanine Aminotransferase 30 IU/L (9-52); Albumin 4.1 g/dL (3.5-5.0); Albumin Globulin Ratio 1.4 (1.0-2.8); Alkaline Phosphatase 67 U/L (38-126); Amylase 100 U/L (30-110); Aspartate Aminotransferase 22 IU/L (14-36); BUN Creatinine Ratio 22.5 (6-22); Bilirubin Total 0.2 mg/dL (0.2-1.3); Blood Urea Nitrogen 18 mg/dL (7-17); Calcium 9.3 mg/dL (8.4-10.2); Carbon Dioxide 32 mmol/L (22-32); Chloride 103 mmol/L (98-107); Estimated Glomerular Filt Rate > 60.0 mL/min (>60); Globulin 2.9 g/dL (1.7-4.1); Glucose 94 mg/dL (70-100); HEMOLYSIS < 15 (0-50); Lipase 286 U/L (23-300); Potassium 4.5 mmol/L (3.4-5.1); Sodium 140 mmol/L (137-145)
== END ==
PROVIDERS: Visit Provider Family Medicine
DX: K12.0 Recurrent oral aphthae (principal); K85.90 Acute pancreatitis without necrosis or infection, unspecified
CPT/HCPCS: 36415; 80053; 82150; 83690

== ENCOUNTER → 2019-03-02 20:33 | Outpatient (CLI) | payer OTHER, SELFPAY ==
[2018-12-31 08:26] VITALS: BMI 22.8
[2019-03-02 21:01] LABS: Alanine Aminotransferase 32 IU/L (9-52); Albumin 3.9 g/dL (3.5-5.0); Albumin Globulin Ratio 1.4 (1.0-2.8); Alkaline Phosphatase 66 U/L (38-126); Amylase 91 U/L (30-110); Aspartate Aminotransferase 24 IU/L (14-36); BUN Creatinine Ratio 27.1 (6-22); Bilirubin Total 0.2 mg/dL (0.2-1.3); Blood Urea Nitrogen 19 mg/dL (7-17); Carbon Dioxide 29 mmol/L (22-32); Chloride 104 mmol/L (98-107); Estimated Glomerular Filt Rate > 60.0 mL/min (>60); Globulin 2.8 g/dL (1.7-4.1); Glucose 104 mg/dL (70-100); HEMOLYSIS < 15 (0-50); Lipase 283 U/L (23-300); Potassium 4.3 mmol/L (3.4-5.1); Sodium 140 mmol/L (137-145); Total Protein 6.7 g/dL (6.3-8.2)
== END ==
PROVIDERS: Visit Provider Family Medicine
DX: K12.0 Recurrent oral aphthae (principal); K85.90 Acute pancreatitis without necrosis or infection, unspecified
CPT/HCPCS: 36415; 80053; 82150; 83690

== ENCOUNTER → 2019-03-10 20:40 | Outpatient (CLI) | payer OTHER, SELFPAY ==
[2018-12-31 08:26] VITALS: BMI 22.8
[2019-03-10 21:06] LABS: Alanine Aminotransferase 25 IU/L (9-52); Albumin 4.1 g/dL (3.5-5.0); Albumin Globulin Ratio 1.5 (1.0-2.8); Alkaline Phosphatase 61 U/L (38-126); Amylase 98 U/L (30-110); Aspartate Aminotransferase 20 IU/L (14-36); BUN Creatinine Ratio 26.3 (6-22); Bilirubin Total 0.4 mg/dL (0.2-1.3); Blood Urea Nitrogen 21 mg/dL (7-17); Calcium 9.1 mg/dL (8.4-10.2); Carbon Dioxide 29 mmol/L (22-32); Chloride 104 mmol/L (98-107); Estimated Glomerular Filt Rate > 60.0 mL/min (>60); Globulin 2.8 g/dL (1.7-4.1); Glucose 99 mg/dL (70-100); HEMOLYSIS < 15 (0-50); Lipase 270 U/L (23-300); Potassium 4.7 mmol/L (3.4-5.1); Sodium 140 mmol/L (137-145); Total Protein 6.9 g/dL (6.3-8.2)
== END ==
PROVIDERS: Visit Provider Family Medicine
DX: K12.0 Recurrent oral aphthae (principal); K85.90 Acute pancreatitis without necrosis or infection, unspecified
CPT/HCPCS: 36415; 80053; 82150; 83690

== ENCOUNTER → 2019-03-24 20:36 | Outpatient (CLI) | payer OTHER, SELFPAY ==
[2018-12-31 08:26] VITALS: BMI 22.8
[2019-03-24 20:59] LABS: Alanine Aminotransferase 25 IU/L (9-52); Albumin 4.1 g/dL (3.5-5.0); Albumin Globulin Ratio 1.5 (1.0-2.8); Alkaline Phosphatase 66 U/L (38-126); Amylase 77 U/L (30-110); Aspartate Aminotransferase 19 IU/L (14-36); BUN Creatinine Ratio 18.9 (6-22); Bilirubin Total 0.4 mg/dL (0.2-1.3); Blood Urea Nitrogen 17 mg/dL (7-17); Calcium 9.4 mg/dL (8.4-10.2); Carbon Dioxide 29 mmol/L (22-32); Chloride 101 mmol/L (98-107); Estimated Glomerular Filt Rate > 60.0 mL/min (>60); Globulin 2.7 g/dL (1.7-4.1); Glucose 103 mg/dL (70-100); HEMOLYSIS < 15 (0-50); Lipase 150 U/L (23-300); Potassium 4.3 mmol/L (3.4-5.1); Sodium 138 mmol/L (137-145); Total Protein 6.8 g/dL (6.3-8.2)
== END ==
PROVIDERS: Visit Provider Family Medicine
DX: K12.0 Recurrent oral aphthae (principal); K85.90 Acute pancreatitis without necrosis or infection, unspecified
CPT/HCPCS: 36415; 80053; 82150; 83690

== ENCOUNTER → 2019-04-09 21:57 | Outpatient (CLI) | payer OTHER, SELFPAY ==
[2018-12-31 08:26] VITALS: BMI 22.8
[2019-04-09 22:23] LABS: Alanine Aminotransferase 21 IU/L (9-52); Albumin 4.3 g/dL (3.5-5.0); Albumin Globulin Ratio 1.5 (1.0-2.8); Alkaline Phosphatase 64 U/L (38-126); Amylase 88 U/L (30-110); Aspartate Aminotransferase 19 IU/L (14-36); BUN Creatinine Ratio 38.6 (6-22); Bilirubin Total 0.2 mg/dL (0.2-1.3); Blood Urea Nitrogen 27 mg/dL (7-17); Calcium 9.5 mg/dL (8.4-10.2); Carbon Dioxide 31 mmol/L (22-32); Chloride 101 mmol/L (98-107); Estimated Glomerular Filt Rate > 60.0 mL/min (>60); Globulin 2.8 g/dL (1.7-4.1); Glucose 94 mg/dL (70-100); HEMOLYSIS < 15 (0-50); Lipase 213 U/L (23-300); Potassium 4.2 mmol/L (3.4-5.1); Sodium 140 mmol/L (137-145); Total Protein 7.1 g/dL (6.3-8.2)
== END ==
PROVIDERS: Visit Provider Family Medicine
DX: K12.0 Recurrent oral aphthae (principal); K85.90 Acute pancreatitis without necrosis or infection, unspecified
CPT/HCPCS: 36415; 80053; 82150; 83690

== ENCOUNTER → 2019-04-21 20:33 | Outpatient (CLI) | payer OTHER, SELFPAY ==
[2018-12-31 08:26] VITALS: BMI 22.8
[2019-04-21 20:57] LABS: Alanine Aminotransferase 28 IU/L (9-52); Albumin 4.2 g/dL (3.5-5.0); Albumin Globulin Ratio 1.5 (1.0-2.8); Alkaline Phosphatase 59 U/L (38-126); Amylase 75 U/L (30-110); Aspartate Aminotransferase 21 IU/L (14-36); Bilirubin Total 0.3 mg/dL (0.2-1.3); Blood Urea Nitrogen 20 mg/dL (7-17); Calcium 9.5 mg/dL (8.4-10.2); Carbon Dioxide 29 mmol/L (22-32); Chloride 102 mmol/L (98-107); Estimated Glomerular Filt Rate > 60.0 mL/min (>60); Globulin 2.8 g/dL (1.7-4.1); Glucose 83 mg/dL (70-100); HEMOLYSIS < 15 (0-50); Lipase 124 U/L (23-300); Potassium 4.1 mmol/L (3.4-5.1); Sodium 139 mmol/L (137-145)
== END ==
PROVIDERS: Visit Provider Family Medicine
DX: K12.0 Recurrent oral aphthae (principal); K85.90 Acute pancreatitis without necrosis or infection, unspecified
CPT/HCPCS: 36415; 80053; 82150; 83690

== ENCOUNTER → 2019-05-05 22:05 | Outpatient (CLI) | payer OTHER, SELFPAY ==
[2018-12-31 08:26] VITALS: BMI 22.8
[2019-05-05 22:30] LABS: Alanine Aminotransferase 24 IU/L (9-52); Albumin 4.3 g/dL (3.5-5.0); Albumin Globulin Ratio 1.5 (1.0-2.8); Alkaline Phosphatase 62 U/L (38-126); Amylase 82 U/L (30-110); Aspartate Aminotransferase 21 IU/L (14-36); BUN Creatinine Ratio 26.3 (6-22); Bilirubin Total 0.2 mg/dL (0.2-1.3); Blood Urea Nitrogen 21 mg/dL (7-17); Calcium 9.2 mg/dL (8.4-10.2); Carbon Dioxide 30 mmol/L (22-32); Chloride 101 mmol/L (98-107); Estimated Glomerular Filt Rate > 60.0 mL/min (>60); Globulin 2.8 g/dL (1.7-4.1); Glucose 92 mg/dL (70-100); HEMOLYSIS < 15 (0-50); Lipase 133 U/L (23-300); Potassium 4.2 mmol/L (3.4-5.1); Sodium 137 mmol/L (137-145); Total Protein 7.1 g/dL (6.3-8.2)
== END ==
PROVIDERS: Visit Provider Family Medicine
DX: K85.90 Acute pancreatitis without necrosis or infection, unspecified (principal)
CPT/HCPCS: 36415; 80053; 82150; 83690

== ENCOUNTER → 2019-05-11 22:40 | Outpatient (CLI) | payer OTHER, SELFPAY ==
[2018-12-31 08:26] VITALS: BMI 22.8
[2019-05-11 23:03] LABS: Alanine Aminotransferase 19 IU/L (9-52); Albumin 4.1 g/dL (3.5-5.0); Albumin Globulin Ratio 1.5 (1.0-2.8); Alkaline Phosphatase 55 U/L (38-126); Amylase 87 U/L (30-110); Aspartate Aminotransferase 22 IU/L (14-36); Bilirubin Total 0.3 mg/dL (0.2-1.3); Blood Urea Nitrogen 21 mg/dL (7-17); Calcium 9.3 mg/dL (8.4-10.2); Carbon Dioxide 30 mmol/L (22-32); Chloride 101 mmol/L (98-107); Estimated Glomerular Filt Rate > 60.0 mL/min (>60); Globulin 2.7 g/dL (1.7-4.1); Glucose 97 mg/dL (70-100); HEMOLYSIS < 15 (0-50); Lipase 263 U/L (23-300); Potassium 4.4 mmol/L (3.4-5.1); Sodium 137 mmol/L (137-145); Total Protein 6.8 g/dL (6.3-8.2)
== END ==
PROVIDERS: Visit Provider Family Medicine
DX: K12.0 Recurrent oral aphthae (principal); K85.90 Acute pancreatitis without necrosis or infection, unspecified
CPT/HCPCS: 36415; 80053; 82150; 83690

== ENCOUNTER → 2019-05-19 20:41 | Outpatient (CLI) | payer OTHER, SELFPAY ==
[2018-12-31 08:26] VITALS: BMI 22.8
[2019-05-19 21:04] LABS: Alanine Aminotransferase 24 IU/L (9-52); Albumin 4.1 g/dL (3.5-5.0); Albumin Globulin Ratio 1.4 (1.0-2.8); Alkaline Phosphatase 64 U/L (38-126); Amylase 76 U/L (30-110); Aspartate Aminotransferase 24 IU/L (14-36); BUN Creatinine Ratio 21.3 (6-22); Bilirubin Total 0.4 mg/dL (0.2-1.3); Blood Urea Nitrogen 17 mg/dL (7-17); Calcium 9.4 mg/dL (8.4-10.2); Carbon Dioxide 30 mmol/L (22-32); Chloride 103 mmol/L (98-107); Estimated Glomerular Filt Rate > 60.0 mL/min (>60); Globulin 2.9 g/dL (1.7-4.1); Glucose 93 mg/dL (70-100); HEMOLYSIS < 15 (0-50); Lipase 146 U/L (23-300); Potassium 4.4 mmol/L (3.4-5.1); Sodium 138 mmol/L (137-145)
== END ==
PROVIDERS: Visit Provider Family Medicine
DX: K85.90 Acute pancreatitis without necrosis or infection, unspecified (principal); K12.0 Recurrent oral aphthae
CPT/HCPCS: 36415; 80053; 82150; 83690

== ENCOUNTER → 2019-05-25 22:16 | Outpatient (CLI) | payer OTHER, SELFPAY ==
[2018-12-31 08:26] VITALS: BMI 22.8
[2019-05-25 22:58] LABS: Alanine Aminotransferase 24 IU/L (9-52); Albumin 4.2 g/dL (3.5-5.0); Albumin Globulin Ratio 1.4 (1.0-2.8); Alkaline Phosphatase 68 U/L (38-126); Amylase 83 U/L (30-110); Aspartate Aminotransferase 22 IU/L (14-36); BUN Creatinine Ratio 27.5 (6-22); Bilirubin Total 0.3 mg/dL (0.2-1.3); Blood Urea Nitrogen 22 mg/dL (7-17); Calcium 9.1 mg/dL (8.4-10.2); Carbon Dioxide 30 mmol/L (22-32); Chloride 101 mmol/L (98-107); Estimated Glomerular Filt Rate > 60.0 mL/min (>60); Globulin 2.9 g/dL (1.7-4.1); Glucose 89 mg/dL (70-100); HEMOLYSIS < 15 (0-50); Lipase 167 U/L (23-300); Potassium 4.2 mmol/L (3.4-5.1); Sodium 138 mmol/L (137-145); Total Protein 7.1 g/dL (6.3-8.2)
== END ==
PROVIDERS: PCP Family Medicine; Visit Provider Family Medicine
DX: K12.0 Recurrent oral aphthae (principal); K85.90 Acute pancreatitis without necrosis or infection, unspecified
CPT/HCPCS: 36415; 80053; 82150; 83690

== ENCOUNTER → 2019-06-02 22:19 | Outpatient (CLI) | payer OTHER, SELFPAY ==
[2018-12-31 08:26] VITALS: BMI 22.8
[2019-06-02 22:42] LABS: Alanine Aminotransferase 22 IU/L (9-52); Albumin 3.8 g/dL (3.5-5.0); Albumin Globulin Ratio 1.4 (1.0-2.8); Alkaline Phosphatase 60 U/L (38-126); Amylase 82 U/L (30-110); Aspartate Aminotransferase 23 IU/L (14-36); Bilirubin Total 0.3 mg/dL (0.2-1.3); Blood Urea Nitrogen 21 mg/dL (7-17); Calcium 9.2 mg/dL (8.4-10.2); Carbon Dioxide 30 mmol/L (22-32); Chloride 103 mmol/L (98-107); Estimated Glomerular Filt Rate > 60.0 mL/min (>60); Globulin 2.8 g/dL (1.7-4.1); Glucose 104 mg/dL (70-100); HEMOLYSIS < 15 (0-50); Lipase 180 U/L (23-300); Potassium 4.2 mmol/L (3.4-5.1); Sodium 139 mmol/L (137-145); Total Protein 6.6 g/dL (6.3-8.2)
== END ==
PROVIDERS: PCP Family Medicine; Visit Provider Family Medicine
DX: K12.0 Recurrent oral aphthae (principal); K85.90 Acute pancreatitis without necrosis or infection, unspecified
CPT/HCPCS: 36415; 80053; 82150; 83690

== ENCOUNTER → 2019-06-08 22:36 | Outpatient (CLI) | payer OTHER, SELFPAY ==
[2018-12-31 08:26] VITALS: BMI 22.8
[2019-06-08 23:04] LABS: Alanine Aminotransferase 26 IU/L (9-52); Albumin 4.2 g/dL (3.5-5.0); Albumin Globulin Ratio 1.5 (1.0-2.8); Alkaline Phosphatase 64 U/L (38-126); Amylase 79 U/L (30-110); Aspartate Aminotransferase 24 IU/L (14-36); BUN Creatinine Ratio 31.4 (6-22); Bilirubin Total 0.3 mg/dL (0.2-1.3); Blood Urea Nitrogen 22 mg/dL (7-17); Carbon Dioxide 29 mmol/L (22-32); Chloride 101 mmol/L (98-107); Estimated Glomerular Filt Rate > 60.0 mL/min (>60); Globulin 2.8 g/dL (1.7-4.1); Glucose 127 mg/dL (70-100); HEMOLYSIS < 15 (0-50); Lipase 131 U/L (23-300); Potassium 4.2 mmol/L (3.4-5.1); Sodium 137 mmol/L (137-145)
== END ==
PROVIDERS: PCP Family Medicine; Visit Provider Family Medicine
DX: K12.0 Recurrent oral aphthae (principal); K85.90 Acute pancreatitis without necrosis or infection, unspecified
CPT/HCPCS: 36415; 80053; 82150; 83690

== ENCOUNTER → 2019-06-20 15:01 | Outpatient (CLI) | payer OTHER, SELFPAY ==
[2018-12-31 08:26] VITALS: BMI 22.8
== END ==
PROVIDERS: PCP Family Medicine
DX: Z23 Encounter for immunization (principal)
CPT/HCPCS: 90471; 90686

== ENCOUNTER → 2019-06-21 21:00 | Outpatient (CLI) | payer OTHER, SELFPAY ==
[2018-12-31 08:26] VITALS: BMI 22.8
[2019-06-21 21:26] LABS: Alanine Aminotransferase 37 IU/L (9-52); Albumin Globulin Ratio 1.4 (1.0-2.8); Alkaline Phosphatase 65 U/L (38-126); Amylase 145 U/L (30-110); Aspartate Aminotransferase 35 IU/L (14-36); BUN Creatinine Ratio 21.3 (6-22); Bilirubin Total 0.3 mg/dL (0.2-1.3); Blood Urea Nitrogen 17 mg/dL (7-17); Calcium 8.9 mg/dL (8.4-10.2); Carbon Dioxide 30 mmol/L (22-32); Chloride 103 mmol/L (98-107); Estimated Glomerular Filt Rate > 60.0 mL/min (>60); Globulin 2.8 g/dL (1.7-4.1); Glucose 81 mg/dL (70-100); HEMOLYSIS < 15 (0-50); Lipase 903 U/L (23-300); Potassium 4.2 mmol/L (3.4-5.1); Sodium 139 mmol/L (137-145); Total Protein 6.8 g/dL (6.3-8.2)
== END ==
PROVIDERS: PCP Family Medicine; Visit Provider Family Medicine
DX: K12.0 Recurrent oral aphthae (principal)
CPT/HCPCS: 36415; 80053; 82150; 83690

== ENCOUNTER → 2019-06-30 20:38 | Outpatient (CLI) | payer OTHER, SELFPAY ==
[2018-12-31 08:26] VITALS: BMI 22.8
[2019-06-30 21:13] LABS: Alanine Aminotransferase 22 IU/L (<35); Albumin 4.3 g/dL (3.5-5.0); Albumin Globulin Ratio 1.6 (1.0-2.8); Alkaline Phosphatase 66 U/L (38-126); Amylase 92 U/L (30-110); Aspartate Aminotransferase 24 IU/L (14-36); Bilirubin Total 0.5 mg/dL (0.2-1.3); Blood Urea Nitrogen 21 mg/dL (7-17); Calcium 9.5 mg/dL (8.4-10.2); Carbon Dioxide 31 mmol/L (22-32); Chloride 99 mmol/L (98-107); Estimated Glomerular Filt Rate > 60.0 mL/min (>60); Globulin 2.7 g/dL (1.7-4.1); Glucose 98 mg/dL (70-100); HEMOLYSIS < 15 (0-50); Lipase 232 U/L (23-300); Potassium 4.5 mmol/L (3.4-5.1); Sodium 136 mmol/L (137-145)
== END ==
PROVIDERS: PCP Family Medicine; Visit Provider Family Medicine
DX: K85.90 Acute pancreatitis without necrosis or infection, unspecified (principal)
CPT/HCPCS: 36415; 80053; 82150; 83690

== ENCOUNTER → 2019-07-06 20:35 | Outpatient (CLI) | payer OTHER, SELFPAY ==
[2018-12-31 08:26] VITALS: BMI 22.8
[2019-07-06 20:57] LABS: Alanine Aminotransferase 20 IU/L (<35); Albumin 4.4 g/dL (3.5-5.0); Albumin Globulin Ratio 1.8 (1.0-2.8); Alkaline Phosphatase 63 U/L (38-126); Amylase 82 U/L (30-110); Aspartate Aminotransferase 23 IU/L (14-36); BUN Creatinine Ratio 25.7 (6-22); Bilirubin Total 0.4 mg/dL (0.2-1.3); Blood Urea Nitrogen 18 mg/dL (7-17); Calcium 9.6 mg/dL (8.4-10.2); Carbon Dioxide 30 mmol/L (22-32); Chloride 100 mmol/L (98-107); Estimated Glomerular Filt Rate > 60.0 mL/min (>60); Globulin 2.5 g/dL (1.7-4.1); Glucose 96 mg/dL (70-100); HEMOLYSIS < 15 (0-50); Lipase 179 U/L (23-300); Potassium 4.5 mmol/L (3.4-5.1); Sodium 138 mmol/L (137-145); Total Protein 6.9 g/dL (6.3-8.2)
== END ==
PROVIDERS: PCP Family Medicine; Visit Provider Family Medicine
DX: K12.0 Recurrent oral aphthae (principal)
CPT/HCPCS: 36415; 80053; 82150; 83690

== ENCOUNTER → 2019-07-20 21:12 | Outpatient (CLI) | payer OTHER, SELFPAY ==
[2018-12-31 08:26] VITALS: BMI 22.8
[2019-07-20 21:34] LABS: Alanine Aminotransferase 29 IU/L (<35); Albumin 4.2 g/dL (3.5-5.0); Albumin Globulin Ratio 1.7 (1.0-2.8); Alkaline Phosphatase 58 U/L (38-126); Amylase 86 U/L (30-110); Aspartate Aminotransferase 24 IU/L (14-36); BUN Creatinine Ratio 28.6 (6-22); Bilirubin Total 0.3 mg/dL (0.2-1.3); Blood Urea Nitrogen 20 mg/dL (7-17); Calcium 9.6 mg/dL (8.4-10.2); Carbon Dioxide 31 mmol/L (22-32); Chloride 101 mmol/L (98-107); Estimated Glomerular Filt Rate > 60.0 mL/min (>60); Globulin 2.5 g/dL (1.7-4.1); Glucose 87 mg/dL (70-100); HEMOLYSIS < 15 (0-50); Lipase 185 U/L (23-300); Potassium 4.3 mmol/L (3.4-5.1); Sodium 137 mmol/L (137-145); Total Protein 6.7 g/dL (6.3-8.2)
== END ==
PROVIDERS: PCP Family Medicine; Visit Provider Family Medicine
DX: K12.0 Recurrent oral aphthae (principal)
CPT/HCPCS: 36415; 80053; 82150; 83690

== ENCOUNTER → 2019-08-01 20:33 | Outpatient (CLI) | payer OTHER, SELFPAY ==
[2018-12-31 08:26] VITALS: BMI 22.8
[2019-08-01 20:56] LABS: Alanine Aminotransferase 22 IU/L (<35); Albumin 4.2 g/dL (3.5-5.0); Albumin Globulin Ratio 1.6 (1.0-2.8); Alkaline Phosphatase 64 U/L (38-126); Amylase 90 U/L (30-110); Aspartate Aminotransferase 23 IU/L (14-36); BUN Creatinine Ratio 27.8 (6-22); Bilirubin Total 0.5 mg/dL (0.2-1.3); Blood Urea Nitrogen 25 mg/dL (7-17); Calcium 9.1 mg/dL (8.4-10.2); Carbon Dioxide 29 mmol/L (22-32); Chloride 102 mmol/L (98-107); Estimated Glomerular Filt Rate > 60.0 mL/min (>60); Globulin 2.6 g/dL (1.7-4.1); Glucose 91 mg/dL (70-100); HEMOLYSIS < 15 (0-50); Lipase 235 U/L (23-300); Potassium 4.4 mmol/L (3.4-5.1); Sodium 138 mmol/L (137-145); Total Protein 6.8 g/dL (6.3-8.2)
== END ==
PROVIDERS: PCP Family Medicine; Visit Provider Family Medicine
DX: K12.0 Recurrent oral aphthae (principal); K85.90 Acute pancreatitis without necrosis or infection, unspecified
CPT/HCPCS: 36415; 80053; 82150; 83690

== ENCOUNTER → 2019-08-03 21:17 | Outpatient (CLI) | payer OTHER, SELFPAY ==
[2018-12-31 08:26] VITALS: BMI 22.8
[2019-08-03 21:40] LABS: Alanine Aminotransferase 25 IU/L (<35); Albumin 4.1 g/dL (3.5-5.0); Albumin Globulin Ratio 1.6 (1.0-2.8); Alkaline Phosphatase 65 U/L (38-126); Amylase 71 U/L (30-110); Aspartate Aminotransferase 25 IU/L (14-36); BUN Creatinine Ratio 26.7 (6-22); Bilirubin Total 0.3 mg/dL (0.2-1.3); Blood Urea Nitrogen 24 mg/dL (7-17); Calcium 9.2 mg/dL (8.4-10.2); Carbon Dioxide 31 mmol/L (22-32); Chloride 103 mmol/L (98-107); Estimated Glomerular Filt Rate > 60.0 mL/min (>60); Globulin 2.5 g/dL (1.7-4.1); Glucose 97 mg/dL (70-100); HEMOLYSIS < 15 (0-50); Lipase 153 U/L (23-300); Potassium 4.3 mmol/L (3.4-5.1); Sodium 137 mmol/L (137-145); Total Protein 6.6 g/dL (6.3-8.2)
== END ==
PROVIDERS: PCP Family Medicine; Visit Provider Family Medicine
DX: K12.0 Recurrent oral aphthae (principal); K85.90 Acute pancreatitis without necrosis or infection, unspecified
CPT/HCPCS: 36415; 80053; 82150; 83690

== ENCOUNTER → 2019-08-28 20:46 | Outpatient (CLI) | payer OTHER, SELFPAY ==
[2018-12-31 08:26] VITALS: BMI 22.8
[2019-08-28 21:12] LABS: Alanine Aminotransferase 49 IU/L (<35); Albumin 4.3 g/dL (3.5-5.0); Albumin Globulin Ratio 1.7 (1.0-2.8); Alkaline Phosphatase 60 U/L (38-126); Amylase 78 U/L (30-110); Aspartate Aminotransferase 34 IU/L (14-36); Bilirubin Total 0.2 mg/dL (0.2-1.3); Blood Urea Nitrogen 18 mg/dL (7-17); Calcium 9.1 mg/dL (8.4-10.2); Carbon Dioxide 29 mmol/L (22-32); Chloride 100 mmol/L (98-107); Estimated Glomerular Filt Rate > 60.0 mL/min (>60); Globulin 2.6 g/dL (1.7-4.1); Glucose 95 mg/dL (70-100); HEMOLYSIS < 15 (0-50); Lipase 126 U/L (23-300); Potassium 4.4 mmol/L (3.4-5.1); Sodium 137 mmol/L (137-145); Total Protein 6.9 g/dL (6.3-8.2)
== END ==
PROVIDERS: PCP Family Medicine; Visit Provider Family Medicine
DX: K85.90 Acute pancreatitis without necrosis or infection, unspecified (principal)
CPT/HCPCS: 36415; 80053; 82150; 83690

== ENCOUNTER → 2019-09-08 21:15 | Outpatient (CLI) | payer OTHER, SELFPAY ==
[2018-12-31 08:26] VITALS: BMI 22.8
[2019-09-08 21:42] LABS: Alanine Aminotransferase 21 IU/L (<35); Albumin 4.2 g/dL (3.5-5.0); Albumin Globulin Ratio 1.6 (1.0-2.8); Alkaline Phosphatase 64 U/L (38-126); Amylase 76 U/L (30-110); Aspartate Aminotransferase 21 IU/L (14-36); BUN Creatinine Ratio 24.4 (6-22); Bilirubin Total 0.2 mg/dL (0.2-1.3); Blood Urea Nitrogen 22 mg/dL (7-17); Calcium 9.7 mg/dL (8.4-10.2); Carbon Dioxide 27 mmol/L (22-32); Chloride 102 mmol/L (98-107); Estimated Glomerular Filt Rate > 60.0 mL/min (>60); Globulin 2.7 g/dL (1.7-4.1); Glucose 86 mg/dL (70-100); HEMOLYSIS < 15 (0-50); Lipase 116 U/L (23-300); Potassium 4.2 mmol/L (3.4-5.1); Sodium 137 mmol/L (137-145); Total Protein 6.9 g/dL (6.3-8.2)
== END ==
PROVIDERS: PCP Family Medicine; Visit Provider Family Medicine
DX: K85.90 Acute pancreatitis without necrosis or infection, unspecified (principal)
CPT/HCPCS: 36415; 80053; 82150; 83690

== ENCOUNTER → 2019-09-22 21:00 | Outpatient (CLI) | payer OTHER, SELFPAY ==
[2018-12-31 08:26] VITALS: BMI 22.8
[2019-09-22 21:23] LABS: Alanine Aminotransferase 21 IU/L (<35); Albumin Globulin Ratio 1.4 (1.0-2.8); Alkaline Phosphatase 65 U/L (38-126); Amylase 68 U/L (30-110); Aspartate Aminotransferase 22 IU/L (14-36); Bilirubin Total 0.2 mg/dL (0.2-1.3); Blood Urea Nitrogen 20 mg/dL (7-17); Calcium 9.1 mg/dL (8.4-10.2); Carbon Dioxide 27 mmol/L (22-32); Chloride 102 mmol/L (98-107); Estimated Glomerular Filt Rate > 60.0 mL/min (>60); Globulin 2.9 g/dL (1.7-4.1); Glucose 96 mg/dL (70-100); HEMOLYSIS < 15 (0-50); Lipase 129 U/L (23-300); Potassium 4.2 mmol/L (3.4-5.1); Sodium 138 mmol/L (137-145); Total Protein 6.9 g/dL (6.3-8.2)
== END ==
PROVIDERS: PCP Family Medicine; Visit Provider Family Medicine
DX: K12.0 Recurrent oral aphthae (principal)
CPT/HCPCS: 36415; 80053; 82150; 83690

== ENCOUNTER → 2019-09-28 22:26 | Outpatient (CLI) | payer OTHER, SELFPAY ==
[2018-12-31 08:26] VITALS: BMI 22.8
[2019-09-28 22:50] LABS: Alanine Aminotransferase 28 IU/L (<35); Albumin 4.2 g/dL (3.5-5.0); Albumin Globulin Ratio 1.5 (1.0-2.8); Alkaline Phosphatase 65 U/L (38-126); Amylase 74 U/L (30-110); Aspartate Aminotransferase 27 IU/L (14-36); BUN Creatinine Ratio 24.3 (6-22); Bilirubin Total 0.2 mg/dL (0.2-1.3); Blood Urea Nitrogen 17 mg/dL (7-17); Carbon Dioxide 30 mmol/L (22-32); Chloride 100 mmol/L (98-107); Estimated Glomerular Filt Rate > 60.0 mL/min (>60); Globulin 2.8 g/dL (1.7-4.1); Glucose 128 mg/dL (70-100); HEMOLYSIS < 15 (0-50); Lipase 103 U/L (23-300); Sodium 136 mmol/L (137-145)
== END ==
PROVIDERS: PCP Family Medicine; Visit Provider Family Medicine
DX: K12.0 Recurrent oral aphthae (principal)
CPT/HCPCS: 36415; 80053; 82150; 83690

== ENCOUNTER → 2019-10-07 21:22 | Outpatient (CLI) | payer OTHER, SELFPAY ==
[2018-12-31 08:26] VITALS: BMI 22.8
[2019-10-07 21:47] LABS: Alanine Aminotransferase 26 IU/L (<35); Albumin 4.1 g/dL (3.5-5.0); Albumin Globulin Ratio 1.4 (1.0-2.8); Alkaline Phosphatase 61 U/L (38-126); Amylase 73 U/L (30-110); Aspartate Aminotransferase 26 IU/L (14-36); BUN Creatinine Ratio 26.7 (6-22); Bilirubin Total 0.3 mg/dL (0.2-1.3); Blood Urea Nitrogen 24 mg/dL (7-17); Calcium 8.8 mg/dL (8.4-10.2); Carbon Dioxide 29 mmol/L (22-32); Chloride 105 mmol/L (98-107); Estimated Glomerular Filt Rate > 60.0 mL/min (>60); Globulin 2.9 g/dL (1.7-4.1); Glucose 95 mg/dL (70-100); HEMOLYSIS < 15 (0-50); Lipase 125 U/L (23-300); Potassium 4.1 mmol/L (3.4-5.1); Sodium 139 mmol/L (137-145)
== END ==
PROVIDERS: PCP Family Medicine; Referring Provider Family Medicine; Visit Provider Family Medicine
DX: K12.0 Recurrent oral aphthae (principal); K85.90 Acute pancreatitis without necrosis or infection, unspecified
CPT/HCPCS: 36415; 80053; 82150; 83690

== ENCOUNTER → 2019-10-26 21:34 | Outpatient (CLI) | payer OTHER, SELFPAY ==
[2018-12-31 08:26] VITALS: BMI 22.8
[2019-10-26 22:04] LABS: Alanine Aminotransferase 23 IU/L (<35); Albumin 4.3 g/dL (3.5-5.0); Albumin Globulin Ratio 1.5 (1.0-2.8); Alkaline Phosphatase 71 U/L (38-126); Amylase 78 U/L (30-110); Aspartate Aminotransferase 25 IU/L (14-36); BUN Creatinine Ratio 28.6 (6-22); Bilirubin Total 0.2 mg/dL (0.2-1.3); Blood Urea Nitrogen 20 mg/dL (7-17); Calcium 9.4 mg/dL (8.4-10.2); Carbon Dioxide 29 mmol/L (22-32); Chloride 104 mmol/L (98-107); Estimated Glomerular Filt Rate > 60.0 mL/min (>60); Globulin 2.9 g/dL (1.7-4.1); Glucose 103 mg/dL (70-100); HEMOLYSIS < 15 (0-50); Lipase 112 U/L (23-300); Potassium 4.3 mmol/L (3.4-5.1); Sodium 139 mmol/L (137-145); Total Protein 7.2 g/dL (6.3-8.2)
== END ==
PROVIDERS: PCP Family Medicine; Referring Provider Family Medicine; Visit Provider Family Medicine
DX: K12.0 Recurrent oral aphthae (principal)
CPT/HCPCS: 36415; 80053; 82150; 83690

== ENCOUNTER → 2019-11-05 22:03 | Outpatient (CLI) | payer OTHER, SELFPAY ==
[2018-12-31 08:26] VITALS: BMI 22.8
[2019-11-05 22:27] LABS: Alanine Aminotransferase 24 IU/L (<35); Albumin 4.1 g/dL (3.5-5.0); Albumin Globulin Ratio 1.4 (1.0-2.8); Alkaline Phosphatase 68 U/L (38-126); Amylase 72 U/L (30-110); Aspartate Aminotransferase 25 IU/L (14-36); BUN Creatinine Ratio 27.5 (6-22); Bilirubin Total 0.3 mg/dL (0.2-1.3); Blood Urea Nitrogen 22 mg/dL (7-17); Calcium 8.9 mg/dL (8.4-10.2); Carbon Dioxide 29 mmol/L (22-32); Chloride 104 mmol/L (98-107); Estimated Glomerular Filt Rate > 60.0 mL/min (>60); Globulin 2.9 g/dL (1.7-4.1); Glucose 91 mg/dL (70-100); HEMOLYSIS < 15 (0-50); Lipase 146 U/L (23-300); Potassium 4.2 mmol/L (3.4-5.1); Sodium 136 mmol/L (137-145)
== END ==
PROVIDERS: PCP Family Medicine; Referring Provider Family Medicine; Visit Provider Family Medicine
DX: K12.0 Recurrent oral aphthae (principal); K85.90 Acute pancreatitis without necrosis or infection, unspecified
CPT/HCPCS: 36415; 80053; 82150; 83690

== ENCOUNTER → 2019-11-18 02:17 | Outpatient (CLI) | payer OTHER, SELFPAY ==
[2018-12-31 08:26] VITALS: BMI 22.8
[2019-11-18 02:41] LABS: Alanine Aminotransferase 22 IU/L (<35); Albumin 4.3 g/dL (3.5-5.0); Albumin Globulin Ratio 1.5 (1.0-2.8); Alkaline Phosphatase 69 U/L (38-126); Amylase 73 U/L (30-110); Aspartate Aminotransferase 24 IU/L (14-36); Bilirubin Total 0.2 mg/dL (0.2-1.3); Blood Urea Nitrogen 19 mg/dL (7-17); Calcium 9.2 mg/dL (8.4-10.2); Carbon Dioxide 29 mmol/L (22-32); Chloride 102 mmol/L (98-107); Estimated Glomerular Filt Rate > 60.0 mL/min (>60); Globulin 2.8 g/dL (1.7-4.1); Glucose 99 mg/dL (70-100); HEMOLYSIS < 15 (0-50); Lipase 168 U/L (23-300); Potassium 4.3 mmol/L (3.4-5.1); Sodium 139 mmol/L (137-145); Total Protein 7.1 g/dL (6.3-8.2)
== END ==
PROVIDERS: PCP Family Medicine; Referring Provider Family Medicine; Visit Provider Family Medicine
DX: K12.0 Recurrent oral aphthae (principal); K85.90 Acute pancreatitis without necrosis or infection, unspecified
CPT/HCPCS: 36415; 80053; 82150; 83690

== ENCOUNTER → 2019-12-01 22:54 | Outpatient (CLI) | payer OTHER, SELFPAY ==
[2018-12-31 08:26] VITALS: BMI 22.8
[2019-12-01 23:19] LABS: Alanine Aminotransferase 27 IU/L (<35); Albumin 4.2 g/dL (3.5-5.0); Albumin Globulin Ratio 1.4 (1.0-2.8); Alkaline Phosphatase 59 U/L (38-126); Amylase 84 U/L (30-110); Aspartate Aminotransferase 25 IU/L (14-36); BUN Creatinine Ratio 24.7 (6-22); Bilirubin Total 0.2 mg/dL (0.2-1.3); Blood Urea Nitrogen 20 mg/dL (7-17); Calcium 9.2 mg/dL (8.4-10.2); Carbon Dioxide 30 mmol/L (22-32); Chloride 101 mmol/L (98-107); Estimated Glomerular Filt Rate > 60.0 mL/min (>60); Glucose 96 mg/dL (70-100); HEMOLYSIS < 15 (0-50); Lipase 138 U/L (23-300); Potassium 3.9 mmol/L (3.4-5.1); Sodium 135 mmol/L (137-145); Total Protein 7.2 g/dL (6.3-8.2)
== END ==
PROVIDERS: PCP Family Medicine; Referring Provider Family Medicine; Visit Provider Family Medicine
DX: K12.0 Recurrent oral aphthae (principal); K85.90 Acute pancreatitis without necrosis or infection, unspecified
CPT/HCPCS: 36415; 80053; 82150; 83690

== ENCOUNTER → 2019-12-16 23:14 | Outpatient (CLI) | payer OTHER, SELFPAY ==
[2018-12-31 08:26] VITALS: BMI 22.8
[2019-12-16 23:41] LABS: Alanine Aminotransferase 34 IU/L (<35); Albumin 4.2 g/dL (3.5-5.0); Albumin Globulin Ratio 1.4 (1.0-2.8); Alkaline Phosphatase 68 U/L (38-126); Amylase 85 U/L (30-110); Aspartate Aminotransferase 30 IU/L (14-36); BUN Creatinine Ratio 24.7 (6-22); Bilirubin Total 0.2 mg/dL (0.2-1.3); Blood Urea Nitrogen 19 mg/dL (7-17); Calcium 9.3 mg/dL (8.4-10.2); Carbon Dioxide 31 mmol/L (22-32); Chloride 102 mmol/L (98-107); Estimated Glomerular Filt Rate > 60.0 mL/min (>60); Glucose 79 mg/dL (70-100); HEMOLYSIS < 15 (0-50); Lipase 127 U/L (23-300); Potassium 3.9 mmol/L (3.4-5.1); Sodium 137 mmol/L (137-145); Total Protein 7.2 g/dL (6.3-8.2)
== END ==
PROVIDERS: PCP Family Medicine; Referring Provider Family Medicine; Visit Provider Family Medicine
DX: K12.0 Recurrent oral aphthae (principal); K85.90 Acute pancreatitis without necrosis or infection, unspecified
CPT/HCPCS: 36415; 80053; 82150; 83690

== ENCOUNTER → 2019-12-31 21:04 | Outpatient (CLI) | payer OTHER, SELFPAY ==
[2018-12-31 08:26] VITALS: BMI 22.8
[2019-12-31 21:28] LABS: Alanine Aminotransferase 33 IU/L (<35); Albumin 4.3 g/dL (3.5-5.0); Albumin Globulin Ratio 1.4 (1.0-2.8); Alkaline Phosphatase 72 U/L (38-126); Amylase 84 U/L (30-110); Aspartate Aminotransferase 26 IU/L (14-36); BUN Creatinine Ratio 33.3 (6-22); Bilirubin Total 0.2 mg/dL (0.2-1.3); Blood Urea Nitrogen 24 mg/dL (7-17); Calcium 9.7 mg/dL (8.4-10.2); Carbon Dioxide 33 mmol/L (22-32); Chloride 101 mmol/L (98-107); Estimated Glomerular Filt Rate > 60.0 mL/min (>60); Glucose 90 mg/dL (70-100); HEMOLYSIS < 15 (0-50); Lipase 122 U/L (23-300); Potassium 4.3 mmol/L (3.4-5.1); Sodium 137 mmol/L (137-145); Total Protein 7.3 g/dL (6.3-8.2)
== END ==
PROVIDERS: PCP Family Medicine; Referring Provider Family Medicine; Visit Provider Family Medicine
DX: K12.0 Recurrent oral aphthae (principal); K85.90 Acute pancreatitis without necrosis or infection, unspecified
CPT/HCPCS: 36415; 80053; 82150; 83690

== ENCOUNTER → 2020-01-18 21:00 | Outpatient (CLI) | payer OTHER, SELFPAY ==
[2018-12-31 08:26] VITALS: BMI 22.8
[2020-01-18 21:23] LABS: Alanine Aminotransferase 27 IU/L (<35); Albumin 4.2 g/dL (3.5-5.0); Albumin Globulin Ratio 1.4 (1.0-2.8); Alkaline Phosphatase 69 U/L (38-126); Amylase 75 U/L (30-110); Aspartate Aminotransferase 28 IU/L (14-36); BUN Creatinine Ratio 27.4 (6-22); Bilirubin Total 0.2 mg/dL (0.2-1.3); Blood Urea Nitrogen 20 mg/dL (7-17); Calcium 9.4 mg/dL (8.4-10.2); Carbon Dioxide 32 mmol/L (22-32); Chloride 102 mmol/L (98-107); Estimated Glomerular Filt Rate > 60.0 mL/min (>60); Globulin 2.9 g/dL (1.7-4.1); Glucose 94 mg/dL (70-100); HEMOLYSIS < 15 (0-50); Lipase 133 U/L (23-300); Potassium 4.4 mmol/L (3.4-5.1); Sodium 137 mmol/L (137-145); Total Protein 7.1 g/dL (6.3-8.2)
== END ==
PROVIDERS: PCP Family Medicine; Referring Provider Family Medicine; Visit Provider Family Medicine
DX: K12.0 Recurrent oral aphthae (principal); K85.90 Acute pancreatitis without necrosis or infection, unspecified
CPT/HCPCS: 36415; 80053; 82150; 83690

== ENCOUNTER → 2020-01-26 21:46 | Outpatient (CLI) | payer OTHER, SELFPAY ==
[2018-12-31 08:26] VITALS: BMI 22.8
[2020-01-26 22:16] LABS: Alanine Aminotransferase 28 IU/L (<35); Albumin 4.2 g/dL (3.5-5.0); Albumin Globulin Ratio 1.4 (1.0-2.8); Alkaline Phosphatase 75 U/L (38-126); Amylase 82 U/L (30-110); Aspartate Aminotransferase 29 IU/L (14-36); Bilirubin Total 0.3 mg/dL (0.2-1.3); Blood Urea Nitrogen 20 mg/dL (7-17); Calcium 9.1 mg/dL (8.4-10.2); Carbon Dioxide 28 mmol/L (22-32); Chloride 101 mmol/L (98-107); Estimated Glomerular Filt Rate > 60.0 mL/min (>60); Globulin 2.9 g/dL (1.7-4.1); Glucose 96 mg/dL (70-100); HEMOLYSIS < 15 (0-50); Lipase 145 U/L (23-300); Potassium 4.2 mmol/L (3.4-5.1); Sodium 136 mmol/L (137-145); Total Protein 7.1 g/dL (6.3-8.2)
== END ==
PROVIDERS: PCP Family Medicine; Referring Provider Family Medicine; Visit Provider Family Medicine
DX: K12.0 Recurrent oral aphthae (principal); K85.90 Acute pancreatitis without necrosis or infection, unspecified
CPT/HCPCS: 36415; 80053; 82150; 83690

== ENCOUNTER → 2020-06-03 07:00 | Outpatient (CLI) | payer OTHER, SELFPAY ==
[2018-12-31 08:26] VITALS: BMI 22.8
--- NOTE | 2020-06-03 | DI.MRI.S_ITS ---
PROCEDURE: MR ANKLE RT WO CON INDICATIONS: Pain in unspecified ankle and joints of unspecifie TECHNIQUE: Noncontrast sagittal T1 spin echo and T2 fast spin echo with fat saturation, axial proton density fast spin echo and T2 fast spin echo with fat saturation, coronal T1 spin echo and T2 fast spin echo with fat saturation through the ankle/hindfoot. COMPARISON: None. FINDINGS: Image quality: Diagnostic. Patient motion is noted during the study. Bones and joints: Focal area of mild edema with overlying thinning of articulating cartilages involving anterior and medial aspect of distal tibial plafond is seen concerning for a tiny 4 x 3 mm osteochondral lesion. No other area of abnormal marrow signal. No hindfoot coalitions. No osteochondral injuries of the talar dome. Physiologic amount of fluid is noted in tibiotalar joint and subtalar joint. Medial structures: The posterior tibialis, flexor digitorum longus, and flexor hallucis longus tendons are intact. The posterior tibial neurovascular bundle appears normal within the tarsal tunnel, without extrinsic mass effect. The deep layer (anterior and posterior tibiotalar ligaments) and superficial layer (tibionavicular, tibiospring, and tibiocalcaneal ligaments) of the deltoid ligament appear normal. The spring ligament components (superomedial calcaneonavicular, medioplantar oblique calcaneonavicular, and inferoplantar longitudinal ligaments) are mildly thickened concerning for low-grade ligament sprain. Lateral structures: The anterior talofibular, calcaneofibular, and posterior talofibular ligaments appear thickened with intrasubstance T2 hyperintense signal suggestive of sprain/low-grade partial-thickness tear. More superiorly, the anterior and posterior tibiofibular ligaments appear intact, as is the intermalleolar ligament. The tibiofibular syndesmosis is normal in width at 2 mm or less. The peroneus longus and brevis tendons are thickened with moderate intrasubstance T2 hyperintense signal and moderate to large amount of surrounding fluid suggestive of tenosynovitis. Adjacent bony peroneal tubercle and retrotrochlear prominence are normal in size. The sinus tarsi demonstrates normal fatty signal, without edema, fibrosis, or cyst formation. Visualized sinus tarsi components (cervical ligament, interosseous talocalcaneal ligament, roots of the inferior extensor retinaculum) appear normal. The calcaneonavicular and calcaneocuboid components of the bifurcate ligament appear intact. The dorsal calcaneocuboid ligament appears intact. Anterior structures: The tibialis anterior, extensor hallucis longus, and extensor digitorum longus tendons appear intact. The dorsal talonavicular ligament appears intact. Posterior and plantar structures: Achilles tendon is intact. Medial and lateral bands of the plantar fascia are of normal thickness. No abductor digiti quinti muscle atrophy to suggest Self neuropathy. IMPRESSION: 1. No fracture or dislocation. Suggestion of tiny osteochondral lesion involving anterior medial portion of distal tibial plafond. No osteochondral lesion of the talar dome is seen. Small amount of joint fluid. 2. Finding is concerning for low-grade Spring ligament complex sprain . Suggestion of sprain/low-grade partial-thickness tear involving anterior and posterior talofibular ligaments and calcaneofibular ligament. 3. Moderate grade tenosynovitis involving peroneus tendons as above. Extensor and flexor tendons are intact. Achilles tendon is intact . Dictated by: Talon Nunn M.D. on 06/03/2020 at 9:50 Approved by: Talon Nunn M.D. on 06/03/2020 at 10:45
== END ==
PROVIDERS: PCP Family Medicine; Referring Provider Family Medicine; Visit Provider Family Medicine
DX: M25.571 Pain in right ankle and joints of right foot (principal); M65.871 Other synovitis and tenosynovitis, right ankle and foot
CPT/HCPCS: 73721

== ENCOUNTER → 2020-08-27 07:04 | Outpatient (CLI) | payer OTHER, SELFPAY ==
[2018-12-31 08:26] VITALS: BMI 22.8
--- NOTE | 2020-08-27 | DI.MRI.S_ITS ---
PROCEDURE: MR HAND LT WO/W CON INDICATIONS: Arthropathy, unspecified. Left hand pain TECHNIQUE: Coronal and axial T1 spin echo and T2 fast spin echo with fat saturation. Post-contrast coronal and axial T1 spin echo with fat saturation images through the left hand and wrist. COMPARISON: [facility], CR, XR HAND 3+ VIEWS BILATERAL, 08/05/2020, 11:33. FINDINGS: Image quality: Mildly degraded by motion artifact.. Bones and cartilage: No definite marrow signal changes to suggest erosions. No osteitis identified. Synovium: No active synovitis is seen. Soft tissues: No tenosynovitis. Fluid about the pisiform is likely physiologic. IMPRESSION: Negative examination. No evidence of active synovitis or erosions. Dictated by: Pb Tenorio M.D. on 08/28/2020 at 11:32 Approved by: Pb Tenorio M.D. on 08/28/2020 at 12:11
--- NOTE | 2020-08-27 | DI.MRI.S_ITS ---
PROCEDURE: MR HAND RT WO/W CON INDICATIONS: Arthropathy, unspecified. Right hand pain TECHNIQUE: Coronal and axial T1 spin echo and T2 fast spin echo with fat saturation. Post-contrast coronal and axial T1 spin echo with fat saturation images through the right hand and wrist. COMPARISON: None. FINDINGS: Image quality: Suboptimal evaluation secondary to field inhomogeneity and artifact involving the ulnar aspect of the hand. Bones and cartilage: Subtle 1-2 mm marrow signal changes seen at the radial aspect of the 3rd metacarpal head in the ulnar aspect of the 5th metacarpal head. There is possible associated enhancement although the MR appearance is quite subtle. No osteitis is seen. Synovium: There is questionable 5th MCP joint synovitis although evaluation limited by artifact as above. Elsewhere, no definite active synovitis seen. Soft tissues: No tenosynovitis identified IMPRESSION: Subtle marrow signal changes involving the 3rd and 5th metacarpal heads although technically indeterminate by strict MR criteria. Nonetheless these are suspicious for early erosions. Questionable 5th MCP joint synovitis although evaluation limited by artifact as above Dictated by: Pb Tenorio M.D. on 08/28/2020 at 11:10 Approved by: Pb Tenorio M.D. on 08/28/2020 at 11:32
== END ==
PROVIDERS: PCP Family Medicine; Referring Provider Internal Medicine Rheumatology; Visit Provider Internal Medicine Rheumatology
DX: M12.9 Arthropathy, unspecified (principal); M79.641 Pain in right hand; M79.642 Pain in left hand
CPT/HCPCS: 73220

== ENCOUNTER → 2020-09-04 11:49 | Outpatient (CLI) | payer OTHER, SELFPAY ==
[2018-12-31 08:26] VITALS: BMI 22.8
[2020-09-04] MEDS: COVID-19 VACC(MODERNA-1)/PF 100 MCG/0.5 ML VIAL IM (11:58)
== END ==
PROVIDERS: PCP Family Medicine; Visit Provider Internal Medicine
DX: Z23 Encounter for immunization (principal)
CPT/HCPCS: 0011A; 91301

== ENCOUNTER → 2020-10-01 11:48 | Outpatient (CLI) | payer OTHER, SELFPAY ==
[2018-12-31 08:26] VITALS: BMI 22.8
[2020-10-01] MEDS: COVID-19 VACC #2, MRNA(MOD) 100 MCG/0.5 ML VIAL IM (11:51)
== END ==
PROVIDERS: PCP Family Medicine; Visit Provider Internal Medicine
DX: Z23 Encounter for immunization (principal)
CPT/HCPCS: 0012A; 91301

== ENCOUNTER → 2021-01-31 06:54 | Outpatient (CLI) | payer OTHER, SELFPAY ==
[2018-12-31 08:26] VITALS: BMI 22.8
--- NOTE | 2021-01-31 | DI.MRI.S_ITS ---
PROCEDURE: MR CERVICAL SPINE WO CON INDICATIONS: Radiculopathy, cervical region TECHNIQUE: Noncontrast sagittal T1 spin echo and T2 fast spin echo, sagittal STIR, foraminal oblique sagittal T2 fast spin echo, and axial gradient echo or T2 fast spin echo through the cervical spine. COMPARISON: None. FINDINGS: Image quality: Excellent. Alignment and Curvature: Degenerative straightening of the usual cervical lordosis. There is no listhesis. Vertebral body heights maintained. Bone Marrow: No suspicious focal marrow signal abnormality or bone marrow edema. Spinal Cord: No spinal cord signal abnormality. There is no syrinx. No unenhanced evidence of significant intradural pathology. Regional Soft Tissues: Prevertebral and paraspinous soft tissues are within normal limits. C2-C3: No spinal canal or neural foraminal stenosis. C3-C4: No spinal canal or neural foraminal stenosis. C4-C5: No spinal canal or neural foraminal stenosis. C5-C6: Posterior disc-osteophyte complex flattens the ventral cord slightly. There is uncovertebral and facet hypertrophy bilaterally producing mild neural foraminal narrowing. C6-C7: Posterior disc-osteophyte complex with a posterior disc protrusion flattening the ventral cord facet and uncovertebral hypertrophy contribute to mild bilateral neural foraminal narrowing, greater on the left. C7-T1: No spinal canal or neural foraminal stenosis. IMPRESSION: Degenerative changes at C5-C6 and C6-C7 producing mild neural foraminal narrowing and mild spinal canal stenosis (more pronounced at C6-C7). Dictated by: Jorge Moore M.D. on 01/31/2021 at 8:26 Approved by: Jorge Moore M.D. on 01/31/2021 at 8:29
== END ==
PROVIDERS: PCP Family Medicine; Referring Provider Family Medicine; Visit Provider Family Medicine
DX: M47.22 Other spondylosis with radiculopathy, cervical region (principal); M48.02 Spinal stenosis, cervical region
CPT/HCPCS: 72141

== ENCOUNTER 2021-04-23 01:50 | Emergency (ER) | payer OTHER, SELFPAY ==
[2018-12-31 08:26] VITALS: BMI 22.8
[2021-04-23 02:00] VITALS: BP 141/66; PULSE 98; RESP 15; TEMP 36.9; O2SAT 100; BMI 26.4
[2021-04-23 02:28] LABS: COVID19 -Nasal RAPID Negative (Negative)
--- NOTE | 2021-04-23 04:34 | ED.URI ---
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 She is currently asymptomatic and feeling well. Related Data Previous Rx's Medication Instructions Recorded hydrocodone 5 mg-acetaminophen 325 1 tab PO Q4-6H PRN #15 tab 10/06/18 mg tablet ([place]) ondansetron 4 mg disintegrating 4 mg PO BID-TID PRN #12 tab 10/06/18 tablet [id number] 1 cap PO TID #90 cap 01/07/19 12,000-38,000-60,000 unit capsule,delayed rel (Creon) Allergies Allergy/AdvReac Type Severity Reaction Status Date / Time Penicillins Allergy Intermediate Verified 10/06/18 13:20 prednisone Allergy Intermediate Verified 10/06/18 13:20 Review of Systems Review of Systems Narrative: GENERAL: Denies chills,fever HEENT: Denies throat pain RESPIRATORY: Denies dyspnea, cough, wheezing CARDIOVASCULAR: Denies chest pain, palpitations GASTROINTESTINAL: Denies nausea, vomiting MUSCULOSKELETAL: Denies extremity pain, injury SKIN: No rash, no laceration, no pruritus NEUROLOGIC: Denies weakness, dizziness, headache, numbness 8 point review of systems is negative except for those stated above and HPI Patient History Family History (Updated 12/31/18 @ 10:26 by Dina Bro MD) Sister Ulcerative colitis Social History household members: spouse and children Smoking Status: Current every day smoker alcohol intake: current Smoking Status: Current every day smoker alcohol intake frequency: holidays/special occasions only Substance Use Type: does not use Exam Initial Vital Signs Initial Vital Signs: Vital Signs Temperature 98.5 F 04/23/21 02:00 Pulse Rate 98 H 04/23/21 02:00 Respiratory Rate 15 04/23/21 02:00 Blood Pressure 141/66 H 04/23/21 02:00 Pulse Oximetry 100 04/23/21 02:00 GENERAL: Well-appearing, well-nourished and in no acute distress. CARDIOVASCULAR: peripheral pulses in tact, cap refill <2 sec RESPIRATORY: No respiratory distress, speaks in full sentences without difficulty EXTREMITIES: Normal range of motion, no clubbing or edema. Neurovascularly intact NEUROLOGICAL: Cranial nerves II through XII grossly intact. Normal gait and speech. SKIN: Warm, dry, no petechiae, no rashes or lesions. 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 COVID is negative. Discharge Plan Departure Patient Disposition: Home Clinical Impression: Worried well, Exposure to 2019-nCoV Instructions: DI for COVID-19 (Suspected or Confirmed ) Activity Restrictions/Additional Instructions: *You have been diagnosed with possible exposure to COVID-19 *What to do: At this time COVID test is negative. If still having symptoms in 5-7 days may need repeat testing. *Continue to take medications as directed *Follow up with your primary care provider in 2-3 days *Return to ER if you should have any new, worsening or concerning symptoms Prescriptions: No Action Creon 12,000-38,000 -60,000 unit capsule,delayed release(DR/EC) 1 cap PO TID Qty: 90 RF: 0 hydrocodone-acetaminophen [[place]] 5-325 mg tablet 1 tab PO Q4-6H PRN (Reason: pain) Qty: 15 RF: 0 ondansetron 4 mg tablet,disintegrating 4 mg PO BID-TID PRN (Reason: nausea and vomiting) Qty: 12 RF: 0 Referrals: Supriya Bullock DO [Primary Care Provider] -
== END 2021-04-23 02:37 | disposition home or self-care (01) ==
PROVIDERS: Emergency Provider Emergency Medicine; PCP Family Medicine
DX: Z20.822 Contact with and (suspected) exposure to COVID-19 (principal)
CPT/HCPCS: 87635; 99281; C9803

== ENCOUNTER → 2021-06-11 10:48 | Outpatient (CLI) | payer OTHER, SELFPAY ==
[2018-12-31 08:26] VITALS: BMI 22.8
[2021-06-11 13:47] LABS: Erythrocyte Sedimentation Rate 7 MM/HR (0-20)
[2021-06-11 14:01] LABS: C-Reactive Protein Quant 0.6 mg/dL (<1.0); Creatine Kinase 66 U/L (30-135)
[2021-06-11 14:05] LABS: Rheumatoid Factor < 8.6 IU/mL (<12.0)
[2021-06-11 15:06] LABS: Folate 19.6 ng/mL (2.76-20.0); Vitamin B12 574 pg/mL (239-931)
[2021-06-12 19:58] LABS: SS A Ro Sjogrens Antibody < 0.2 AI (0.0-0.9); SS B La Sjogrens Antibody < 0.2 AI (0.0-0.9)
[2021-06-13 15:48] LABS: Immunoglobulin A, Serum 137 mg/dL (87-352); Immunoglobulin G,Serum 812 mg/dL (586-1602); Immunoglobulin M, Serum 115 mg/dL (26-217)
[2021-06-14 16:07] LABS: Vitamin B1 173.4 nmol/L (66.5-200.0)
== END ==
PROVIDERS: PCP Family Medicine; Referring Provider Psychiatry & Neurology Neurology; Visit Provider Psychiatry & Neurology Neurology
DX: G90.09 Other idiopathic peripheral autonomic neuropathy (principal); G90.3 Multi-system degeneration of the autonomic nervous system; I95.1 Orthostatic hypotension
CPT/HCPCS: 36415; 82550; 82595; 82607; 82746; 82784; 83516; 83520; 84155; 84425; 85651; 86140; 86235; 86334; 86430

== ENCOUNTER → 2021-07-17 14:59 | Outpatient (CLI) | payer OTHER, SELFPAY ==
[2018-12-31 08:26] VITALS: BMI 22.8
== END ==
PROVIDERS: PCP Family Medicine; Referring Provider Internal Medicine; Visit Provider Internal Medicine
DX: Z23 Encounter for immunization (principal)
CPT/HCPCS: 90471; 90686

== ENCOUNTER → 2021-07-18 07:52 | Outpatient (CLI) | payer OTHER, SELFPAY ==
[2018-12-31 08:26] VITALS: BMI 22.8
[2021-07-18] MEDS: COVID-19 VACC #3, MRNA(MOD) 50 MCG/0.25 ML VIAL IM (08:04)
== END ==
PROVIDERS: PCP Family Medicine; Visit Provider Internal Medicine
DX: Z23 Encounter for immunization (principal)
CPT/HCPCS: 0013A; 91301

== ENCOUNTER → 2022-01-05 11:02 | Outpatient (CLI) | payer OTHER, SELFPAY ==
[2018-12-31 08:26] VITALS: BMI 22.8
--- NOTE | 2022-01-05 | DI.MRI.S_ITS ---
PROCEDURE: MR LUMBAR SPINE WO CON INDICATIONS: LOW BACK PAIN W/BILAT LEG TINGLING FOOT WEAKNESS TECHNIQUE: Noncontrast sagittal T1 spin echo and T2 fast echo, sagittal STIR, and T2 fast spin echo through the lumbar spine. In cases with scoliosis, additional coronal T2 fast spin echo may be performed. COMPARISON: [facility], MR, L-SPINE WITHOUT CONTRAST, 01/31/2015, 9:03. FINDINGS: Image quality: Excellent. Alignment and Curvature: There is normal bony alignment. Bone Marrow: Marrow is of normal overall signal. No acute vertebral body compression fractures. Spinal Cord: Conus medullaris terminates at the L1-2 level. Visualized cord demonstrates normal signal and size. Paraspinous Soft Tissues: No paravertebral masses. T12-L1: Normal appearance. L1-L2: Normal appearance. L2-L3: Normal appearance. L3-L4: Minimal disc bulge and bilateral facet arthrosis is seen, no significant canal stenosis or neural foraminal narrowing. L4-L5: Broad-based disc bulge and bilateral facet arthrosis is seen. Very mild central canal stenosis, no significant neural foraminal narrowing. L5-S1: Central to right-sided disc bulge and bilateral facet arthrosis is seen with mild central canal stenosis, no significant neural foraminal narrowing. IMPRESSION: 1. Mild disc bulge and bilateral facet arthrosis at L3-4 through L5-S1 levels as described above. Mild central canal stenosis is noted at L4-5 and L5-S1 levels, no significant neural foraminal narrowing. Dictated by: Talon Nunn M.D. on 01/05/2022 at 12:55 Approved by: Talon Nunn M.D. on 01/05/2022 at 13:00
== END ==
PROVIDERS: PCP Family Medicine; Referring Provider Psychiatry & Neurology Neurology; Visit Provider Psychiatry & Neurology Neurology
DX: M51.16 Intervertebral disc disorders with radiculopathy, lumbar region (principal); M51.17 Intervertebral disc disorders with radiculopathy, lumbosacral region; M47.26 Other spondylosis with radiculopathy, lumbar region; M47.27 Other spondylosis with radiculopathy, lumbosacral region; M48.061 Spinal stenosis, lumbar region without neurogenic claudication; M48.07 Spinal stenosis, lumbosacral region
CPT/HCPCS: 72148

== ENCOUNTER → 2022-02-02 14:23 | Outpatient (CLI) | payer OTHER, SELFPAY ==
[2018-12-31 08:26] VITALS: BMI 22.8
--- NOTE | 2022-02-02 | DI.ECHO.S_ITS ---
[facility]---------+ [facility] +---------+ : : [address] : : : : [id number] : : : : Phone: [phone] Echocardiogram Report + + :Name: BRADY LAROSE Study Date: 02/02/2022 Height: 69 in : :[facility] ReadingLocation: Weight: 185 lb : : Gender: Female BSA: 2.0 m2 : :: 1975 Age: 46 yrs BP: 108/75 mmHg: :Reason For Study: EDEMA, RAYNAUDS SYNDROM WITHOUT GANGRENE : :Ordering Physician: ANIKA, : :LENO Mccollum Performed By: Enid Quinones : :Referring: LEON DONALDSON : + + Interpretation Summary The ejection fraction is estimated to be 60-65%. Diastolic parameters suggest probable normal left ventricular diastolic function and normal filling pressures. The right ventricle is normal in size and function. No significant valvular abnormalities. The right ventricular systolic pressure is estimated to be at least 20 mmHg based on an estimated right atrial pressure of 3 mm Hg. Procedure: A two-dimensional transthoracic echocardiogram with color flow and Doppler was performed. The study quality was technically adequate. There is no prior echocardiogram noted for this patient. The patient was in sinus rhythm with heart rates between 57-71 bpm during the exam. Left Ventricle: The left ventricle is normal in size and wall thickness. The ejection fraction is estimated to be 60-65%. Diastolic parameters suggest probable normal left ventricular diastolic function and normal filling pressures. Right Ventricle: The right ventricle is normal in size and function. Atria: The left atrial size is normal. Right atrial size is normal. There is no Doppler evidence for an interatrial shunt. Mitral Valve: The mitral valve is normal in structure and function. There is trace mitral regurgitation. Aortic Valve: The aortic valve is trileaflet. The aortic valve opens well. There is no aortic valve stenosis. No aortic regurgitation is present. Tricuspid Valve: The tricuspid valve is normal in structure and function. There is trace tricuspid regurgitation. The right ventricular systolic pressure is estimated to be at least 20 mmHg based on an estimated right atrial pressure of 3 mm Hg. Pulmonic Valve: The pulmonic valve is not well visualized. There is no pulmonic valvular regurgitation. Great Vessels: The aortic root is normal size. The dimensions of the ascending aorta are normal. The IVC is of normal diameter and collapses greater than 50% with a sniff. This suggests a low right atrial pressure of 3 mm Hg. Pericardium/ Pleura There is no pericardial effusion. There is no pleural effusion. MMode/2D Measurements & Calculations LVIDd: 4.3 cm LVOT diam: 2.1 cm LVIDs: 2.7 cm Ao root diam: 2.8 cm FS: 37.8 % asc Aorta Diam: 3.0 cm IVSd: 0.83 cm Ao Arch Diam (Prox Trans): 2.7 cm LVPWd: 0.68 cm LV torres. diameter/BSA (cm/m^2): 2.2 LV sys. diameter/BSA (cm/m^2): 1.3 LA A2 area: 13.5 cm2 RA long axis: 4.2 cm LA A4 area: 17.4 cm2 RA area: 12.6 cm2 LA length (vol): 4.9 cm RA vol: 32.4 ml LA vol: 41.0 ml RA : 16.2 ml/m2 LA vol index: 20.5 ml/m2 IVC diam: 1.6 cm RVD1 (basal): 3.4 cm RVD2 (mid): 3.1 cm TAPSE: 2.7 cm Doppler Measurements & Calculations Ao V2 max: 118.4 cm/sec LVOT Max Deny: 114.8 cm/sec Ao V2 mean: 77.0 cm/sec LV V1 max P.3 mmHg Ao max P.6 mmHg LV V1 VTI: 23.8 cm Ao mean P.8 mmHg RAMONE(I,D): 3.0 cm2 Ao V2 VTI: 26.7 cm RAMONE(V,D): 3.2 cm2 sev ratio: 0.89 RAMONE indexed to BSA (cm^2/m^2): 1.5 MV E max deny: 73.1 cm/sec TR max deny: 205.4 cm/sec MV A max deny: 68.3 cm/sec TR max P.9 mmHg MV E/A: 1.1 PA V2 max: 99.8 cm/sec Med Peak E' Deny: 10.7 cm/sec PA V2 mean: 71.5 cm/sec E/E' med: 6.8 PA mean P.4 mmHg Lat Peak E' Deny: 10.9 cm/sec PA pr(Accel): 31.0 mmHg E/E' lat: 6.7 E/e' average: 6.8 MV dec time: 0.27 sec SVLVOT): 78.8 ml Reading Physician:04:50 PM
== END ==
PROVIDERS: PCP Family Medicine; Referring Provider Family Medicine; Visit Provider Family Medicine
DX: R60.9 Edema, unspecified (principal); I73.00 Raynaud's syndrome without gangrene
CPT/HCPCS: 93306

== ENCOUNTER → 2022-03-02 13:42 | Outpatient (CLI) | payer OTHER, SELFPAY ==
[2018-12-31 08:26] VITALS: BMI 22.8
[2022-03-02 14:06] LABS: COVID19 -Nasal RAPID Negative (Negative)
[2022-03-02 15:26] LABS: COVID-19 CEPHEID PCR (VTM/NP) Negative (Negative)
== END ==
PROVIDERS: PCP Family Medicine; Referring Provider Physician Assistant; Visit Provider Physician Assistant
DX: Z01.812 Encounter for preprocedural laboratory examination (principal); Z20.822 Contact with and (suspected) exposure to COVID-19
CPT/HCPCS: 87635; C9803; U0003; U0005

== ENCOUNTER → 2022-07-16 11:50 | Outpatient (CLI) | payer OTHER, SELFPAY ==
[2018-12-31 08:26] VITALS: BMI 22.8
== END ==
PROVIDERS: PCP Family Medicine; Referring Provider Internal Medicine; Visit Provider Internal Medicine
DX: Z23 Encounter for immunization (principal)
CPT/HCPCS: 90471; 90686

== ENCOUNTER → 2022-08-10 10:54 | Outpatient (CLI) | payer OTHER, SELFPAY ==
[2018-12-31 08:26] VITALS: BMI 22.8
[2022-08-10 11:34] LABS: Add Manual Diff / Slide Review NO; Basophils Absolute Auto 100 /uL (0-100); Eosinophils Absolute Auto 200 /uL (0-450); Eosinophils Percent Auto 2.4 % (2-4); Hematocrit 40.4 % (36-46); Hemoglobin 13.8 g/dL (12.0-16.0); Lymphocytes Absolute Auto 2400 /uL (1100-4500); Lymphocytes Percent Auto 23.5 % (25-40); Mean Corpuscular HGB Conc 34.2 % (30-36); Mean Corpuscular Hemoglobin 31.3 PG (26-34); Mean Corpuscular Volume 91.5 fL (80-100); Monocytes Absolute Auto 600 /uL (0-900); Neutrophils Absolute Auto 6900 /uL (1500-7000); Neutrophils Percent Auto 67.1 % (50-75); Platelet Count 285 X10^3/uL (150-400); Red Blood Cell Count 4.42 X10^6/uL (4.0-5.2); Red Cell Distribution Width 13.4 % (11.6-14.8); White Blood Cell Count 10.3 X10^3/uL (4.5-11.0)
[2022-08-10 11:41] LABS: Hemoglobin A1C% w Est Avg Glu 5.5 % (4.0-6.0)
[2022-08-10 12:11] LABS: Iron 67 ug/dL (37-170)
[2022-08-10 12:13] LABS: Alanine Aminotransferase 26 IU/L (<35); Albumin 3.9 g/dL (3.5-5.0); Albumin Globulin Ratio 1.4 (1.0-2.8); Alkaline Phosphatase 75 U/L (38-126); Aspartate Aminotransferase 25 IU/L (14-36); BUN Creatinine Ratio 28.8 (6-22); Bilirubin Total 0.2 mg/dL (0.2-1.3); Blood Urea Nitrogen 19 mg/dL (7-17); Calcium 8.8 mg/dL (8.4-10.2); Carbon Dioxide 30 mmol/L (22-32); Chloride 101 mmol/L (98-107); Cholesterol 181 mg/dL (140-199); Estimated Glomerular Filt Rate > 60 mL/min (>60); Globulin 2.7 g/dL (1.7-4.1); Glucose 84 mg/dL (70-100); HDL Cholesterol 53 mg/dL (40-60); HEMOLYSIS < 15 (0-50); LDL Cholesterol Calculated 106 mg/dL (<100); Lipase 166 U/L (23-300); Potassium 4.3 mmol/L (3.4-5.1); Sodium 137 mmol/L (137-145); Total Protein 6.6 g/dL (6.3-8.2); Triglycerides 108 mg/dL (35-150)
[2022-08-10 12:20] LABS: Percent Iron Saturation 22 % (15-50); Total Iron Binding Capacity 305 ug/dL (265-497)
[2022-08-10 12:29] LABS: Free T4, Direct Thyroxine 0.83 ng/dL (0.78-2.19)
[2022-08-10 12:30] LABS: Vitamin D 25 Hydroxy (D3) 36.6 ng/mL (30.0-100.0)
[2022-08-10 12:43] LABS: Thyroid Stimulating Hormone 0.993 uIU/mL (0.47-4.68)
[2022-08-10 13:17] LABS: Folate 9.8 ng/mL (2.76-20.0); Vitamin B12 622 pg/mL (239-931)
== END ==
PROVIDERS: PCP Family Medicine; Referring Provider Family Medicine; Visit Provider Family Medicine
DX: K86.1 Other chronic pancreatitis (principal); E55.9 Vitamin D deficiency, unspecified; R20.2 Paresthesia of skin; R19.4 Change in bowel habit
CPT/HCPCS: 36415; 80053; 80061; 82306; 82607; 82746; 83036; 83540; 83550; 83690; 84439; 84443; 85025

== ENCOUNTER → 2023-03-31 06:15 | Outpatient (CLI) | payer OTHER, SELFPAY ==
[2018-12-31 08:26] VITALS: BMI 22.8
[2023-03-31 06:40] LABS: Add Manual Diff / Slide Review NO; Basophils Absolute Auto 0 /uL (0-100); Basophils Percent Auto 0.5 % (0-2); Eosinophils Absolute Auto 300 /uL (0-450); Eosinophils Percent Auto 3.3 % (2-4); Hematocrit 41.4 % (36-46); Hemoglobin 14.3 g/dL (12.0-16.0); Lymphocytes Absolute Auto 2100 /uL (1100-4500); Lymphocytes Percent Auto 21.6 % (25-40); Mean Corpuscular HGB Conc 34.6 % (30-36); Mean Corpuscular Hemoglobin 31.2 PG (26-34); Mean Corpuscular Volume 90.2 fL (80-100); Monocytes Absolute Auto 800 /uL (0-900); Monocytes Percent Auto 7.9 % (3-14); Neutrophils Absolute Auto 6500 /uL (1500-7000); Neutrophils Percent Auto 66.7 % (50-75); Platelet Count 272 X10^3/uL (150-400); Red Blood Cell Count 4.59 X10^6/uL (4.0-5.2); Red Cell Distribution Width 13.3 % (11.6-14.8); White Blood Cell Count 9.8 X10^3/uL (4.5-11.0)
[2023-03-31 06:46] LABS: Alanine Aminotransferase 29 IU/L (<35); Albumin 4.1 g/dL (3.5-5.0); Albumin Globulin Ratio 1.4 (1.0-2.8); Alkaline Phosphatase 74 U/L (38-126); Amylase 79 U/L (30-110); Aspartate Aminotransferase 27 IU/L (14-36); BUN Creatinine Ratio 28.4 (6-22); Bilirubin Total 0.4 mg/dL (0.2-1.3); Blood Urea Nitrogen 23 mg/dL (7-17); Carbon Dioxide 32 mmol/L (22-32); Chloride 101 mmol/L (98-107); Estimated Glomerular Filt Rate > 60 mL/min (>60); Glucose 92 mg/dL (70-100); HEMOLYSIS < 15 (0-50); Lipase 209 U/L (23-300); Potassium 4.6 mmol/L (3.4-5.1); Sodium 137 mmol/L (137-145); Total Protein 7.1 g/dL (6.3-8.2)
[2023-03-31 07:22] LABS: Thyroid Stimulating Hormone 1.32 uIU/mL (0.47-4.68)
[2023-04-01 02:11] LABS: Homocysteine 7.7 umol/L (0.0-14.5)
== END ==
PROVIDERS: PCP Family Medicine; Referring Provider Family Medicine; Visit Provider Family Medicine
DX: R53.83 Other fatigue (principal); R10.9 Unspecified abdominal pain; K86.1 Other chronic pancreatitis; D72.829 Elevated white blood cell count, unspecified
CPT/HCPCS: 36415; 80053; 82150; 83090; 83690; 84443; 85025

== ENCOUNTER → 2023-07-01 06:48 | Outpatient (CLI) | payer OTHER, SELFPAY ==
[2018-12-31 08:26] VITALS: BMI 22.8
[2023-07-01 07:22] LABS: Add Manual Diff / Slide Review NO; Basophils Absolute Auto 0 /uL (0-100); Basophils Percent Auto 0.4 % (0-2); Eosinophils Absolute Auto 300 /uL (0-450); Eosinophils Percent Auto 2.6 % (2-4); Hematocrit 40.6 % (36-46); Hemoglobin 13.8 g/dL (12.0-16.0); Lymphocytes Absolute Auto 2300 /uL (1100-4500); Lymphocytes Percent Auto 23.6 % (25-40); Mean Corpuscular HGB Conc 33.9 % (30-36); Mean Corpuscular Hemoglobin 30.7 PG (26-34); Mean Corpuscular Volume 90.8 fL (80-100); Monocytes Absolute Auto 900 /uL (0-900); Monocytes Percent Auto 8.9 % (3-14); Neutrophils Absolute Auto 6300 /uL (1500-7000); Neutrophils Percent Auto 64.5 % (50-75); Platelet Count 283 X10^3/uL (150-400); Red Blood Cell Count 4.47 X10^6/uL (4.0-5.2); Red Cell Distribution Width 12.8 % (11.6-14.8); White Blood Cell Count 9.7 X10^3/uL (4.5-11.0)
[2023-07-01 07:37] LABS: Alanine Aminotransferase 53 IU/L (<35); Albumin 4.2 g/dL (3.5-5.0); Albumin Globulin Ratio 1.6 (1.0-2.8); Alkaline Phosphatase 88 U/L (38-126); Aspartate Aminotransferase 36 IU/L (14-36); BUN Creatinine Ratio 31.6 (6-22); Bilirubin Total 0.3 mg/dL (0.2-1.3); Bilirubin Unconjugated 0.3 mg/dL (0.0-1.1); Blood Urea Nitrogen 25 mg/dL (7-17); Calcium 9.5 mg/dL (8.4-10.2); Carbon Dioxide 31 mmol/L (22-32); Chloride 103 mmol/L (98-107); Estimated Glomerular Filt Rate > 60 mL/min (>60); Globulin 2.7 g/dL (1.7-4.1); Glucose 96 mg/dL (70-100); HEMOLYSIS < 15 (0-50); Potassium 4.8 mmol/L (3.4-5.1); Sodium 136 mmol/L (137-145); Total Protein 6.9 g/dL (6.3-8.2)
== END ==
PROVIDERS: PCP Family Medicine; Referring Provider Family Medicine; Visit Provider Family Medicine
DX: R10.9 Unspecified abdominal pain (principal); R74.8 Abnormal levels of other serum enzymes
CPT/HCPCS: 36415; 80053; 80076; 85025

== ENCOUNTER → 2023-09-07 11:57 | Outpatient (CLI) | payer OTHER, SELFPAY ==
[2018-12-31 08:26] VITALS: BMI 22.8
[2023-09-07 12:08] LABS: Add Manual Diff / Slide Review NO; Basophils Absolute Auto 0 /uL (0-100); Basophils Percent Auto 0.5 % (0-2); Eosinophils Absolute Auto 200 /uL (0-450); Eosinophils Percent Auto 2.2 % (2-4); Hematocrit 38.2 % (36-46); Hemoglobin 13.3 g/dL (12.0-16.0); Lymphocytes Absolute Auto 2900 /uL (1100-4500); Mean Corpuscular HGB Conc 34.7 % (30-36); Mean Corpuscular Hemoglobin 31.5 PG (26-34); Mean Corpuscular Volume 90.6 fL (80-100); Monocytes Absolute Auto 700 /uL (0-900); Monocytes Percent Auto 6.7 % (3-14); Neutrophils Absolute Auto 5900 /uL (1500-7000); Neutrophils Percent Auto 60.6 % (50-75); Platelet Count 288 X10^3/uL (150-400); Red Blood Cell Count 4.22 X10^6/uL (4.0-5.2); Red Cell Distribution Width 12.8 % (11.6-14.8); White Blood Cell Count 9.7 X10^3/uL (4.5-11.0)
[2023-09-07 12:20] LABS: Alanine Aminotransferase 35 IU/L (<35); Albumin 4.1 g/dL (3.5-5.0); Albumin Globulin Ratio 1.4 (1.0-2.8); Alkaline Phosphatase 83 U/L (38-126); Aspartate Aminotransferase 28 IU/L (14-36); BUN Creatinine Ratio 35.2 (6-22); Bilirubin Total 0.4 mg/dL (0.2-1.3); Blood Urea Nitrogen 31 mg/dL (7-17); Calcium 9.4 mg/dL (8.4-10.2); Carbon Dioxide 30 mmol/L (22-32); Chloride 100 mmol/L (98-107); Estimated Glomerular Filt Rate > 60 mL/min (>60); Glucose 87 mg/dL (70-100); HEMOLYSIS < 15 (0-50); Lipase 197 U/L (23-300); Potassium 4.1 mmol/L (3.4-5.1); Sodium 137 mmol/L (137-145); Total Protein 7.1 g/dL (6.3-8.2)
== END ==
PROVIDERS: PCP Family Medicine; Referring Provider Family Medicine; Visit Provider Family Medicine
DX: R10.9 Unspecified abdominal pain (principal)
CPT/HCPCS: 36415; 80053; 83690; 85025

== ENCOUNTER → 2023-12-28 13:40 | Outpatient (CLI) | payer OTHER, SELFPAY ==
[2018-12-31 08:26] VITALS: BMI 22.8
--- NOTE | 2023-12-28 13:41 | DI.MRI.S_ITS ---
PROCEDURE: MR ANKLE RT WO CON INDICATIONS: RIGHT ANKLE PAIN TECHNIQUE: Noncontrast sagittal T1 spin echo and T2 fast spin echo with fat saturation, axial proton density fast spin echo and T2 fast spin echo with fat saturation, coronal T1 spin echo and T2 fast spin echo with fat saturation through the ankle/hindfoot. COMPARISON: [facility], MR, MR ANKLE RT WO CON, 06/03/2020, 7:35. FINDINGS: Image quality: Excellent. Bones and joints: There is mildly increased T2 hyperintense signal within weight-bearing portion of calcaneus without discrete fracture line. Small osteochondral injury is noted involving medial aspect of distal tibial plafond. No osteochondral injuries of the talar dome. No other area of abnormal marrow signal. Small tibiotalar joint effusion is seen, no gross loose bodies. Medial structures: The posterior tibialis tendon is thickened near its distal insertion. The flexor digitorum longus, and flexor hallucis longus tendons are intact. The posterior tibial neurovascular bundle appears normal within the tarsal tunnel, without extrinsic mass effect. The deltoid ligament and spring ligament are thickened with intrasubstance T2 hyperintense signal. Lateral structures: The anterior talofibular, calcaneofibular, and posterior talofibular ligaments appear intact. More superiorly, the anterior and posterior tibiofibular ligaments appear intact, as is the intermalleolar ligament. The tibiofibular syndesmosis is normal in width at 2 mm or less. The peroneus longus and brevis tendons are thickened with surrounding fluid distending tendon sheath and intrasubstance T2 hyperintense signal extending from the level of lateral malleolus tip extending to the level of TMT joints. The sinus tarsi demonstrates normal fatty signal, without edema, fibrosis, or cyst formation. Visualized sinus tarsi components (cervical ligament, interosseous talocalcaneal ligament, roots of the inferior extensor retinaculum) appear normal. Anterior structures: The tibialis anterior, extensor hallucis longus, and extensor digitorum longus tendons appear intact. The dorsal talonavicular ligament appears intact. Posterior and plantar structures: Achilles tendon is intact. Thickened medial band of plantar fascia at its plantar calcaneal insertion is seen. No abductor digiti quinti muscle atrophy to suggest Self neuropathy. IMPRESSION: 1. Likely stress related changes involving weight-bearing portion of calcaneus with mild marrow edema. No fracture or dislocation. Tiny osteochondral injury involving medial weight-bearing portion of distal tibial plafond. No osteochondral injuries of talar dome. Small joint effusion, no loose bodies. 2. Distal posterior tibialis tendinosis near its distal insertion. 3. Low-grade intrasubstance partial-thickness tear and low-grade tenosynovitis involving peroneus tendons at the level of lateral malleolus tip extending to the level of TMT joints. 4. Low-grade sprain/intrasubstance partial-thickness tear involving medial ankle ligaments. Lateral ankle ligaments are intact. 5. Mildly thickened medial band of plantar fascia suggestive of low-grade plantar fasciitis. Dictated by: Talon Nunn M.D. on 12/28/2023 at 15:25 Approved by: Talon Nunn M.D. on 12/28/2023 at 16:50
== END ==
PROVIDERS: PCP Family Medicine; Referring Provider Family Medicine; Visit Provider Family Medicine
DX: S86.311A Strain of muscle(s) and tendon(s) of peroneal muscle group at lower leg level, right leg, initial encounter (principal); S93.491A Sprain of other ligament of right ankle, initial encounter; M65.871 Other synovitis and tenosynovitis, right ankle and foot; M25.471 Effusion, right ankle; M67.479 Ganglion, unspecified ankle and foot; M25.571 Pain in right ankle and joints of right foot; R29.898 Other symptoms and signs involving the musculoskeletal system
CPT/HCPCS: 73721

== ENCOUNTER → 2024-03-08 06:35 | Outpatient (CLI) | payer OTHER, SELFPAY ==
[2018-12-31 08:26] VITALS: BMI 22.8
[2024-03-08 07:41] LABS: Alanine Aminotransferase 25 IU/L (<35); Albumin 4.2 g/dL (3.5-5.0); Albumin Globulin Ratio 1.5 (1.0-2.8); Alkaline Phosphatase 87 U/L (38-126); Amylase 80 U/L (30-110); Aspartate Aminotransferase 26 IU/L (14-36); BUN Creatinine Ratio 30.3 (6-22); Bilirubin Total 0.5 mg/dL (0.2-1.3); Blood Urea Nitrogen 23 mg/dL (7-17); Calcium 8.7 mg/dL (8.4-10.2); Carbon Dioxide 29 mmol/L (22-32); Chloride 105 mmol/L (98-107); Estimated Glomerular Filt Rate > 60 mL/min (>60); Globulin 2.8 g/dL (1.7-4.1); Glucose 93 mg/dL (70-100); HEMOLYSIS < 15 (0-50); Lipase 182 U/L (23-300); Potassium 4.1 mmol/L (3.4-5.1); Sodium 137 mmol/L (137-145)
[2024-03-08 08:04] LABS: Progesterone, Total 0.93 ng/mL
[2024-03-08 08:20] LABS: Estradiol, Total 59.7 pg/mL
[2024-03-14 09:12] LABS: Percent Free Testosterone 1.48 % (0.50-2.80); Testosterone Free 0.28 ng/dL (0.10-0.85); Testosterone Total 18.8 ng/dL (.)
== END ==
PROVIDERS: PCP Family Medicine; Referring Provider Family Medicine; Visit Provider Family Medicine
DX: K86.1 Other chronic pancreatitis (principal)
CPT/HCPCS: 36415; 80053; 82150; 82670; 83690; 84144; 84402; 84403; 84443

== ENCOUNTER → 2024-03-17 13:37 | Outpatient (CLI) | payer OTHER, SELFPAY ==
[2018-12-31 08:26] VITALS: BMI 22.8
--- NOTE | 2024-03-17 13:38 | DI.MRI.S_ITS ---
PROCEDURE: MR ANKLE RT WO CON INDICATIONS: Pain in right foot TECHNIQUE: Noncontrast sagittal T1 spin echo and T2 fast spin echo with fat saturation, axial proton density fast spin echo and T2 fast spin echo with fat saturation, coronal T1 spin echo and T2 fast spin echo with fat saturation through the ankle/hindfoot. COMPARISON: [facility], MR, MR ANKLE RT WO CON, 12/28/2023, 13:52. FINDINGS: Image quality: Excellent. Bones and joints: Well-defined plantar calcaneal enthesophyte is seen. Mild edema involving plantar aspect of posterior calcaneus is seen without discrete fracture line. Mild midfoot and hindfoot joint osteoarthritic changes are seen with joint space narrowing and subchondral sclerosis. Small osteochondral injury involving anterior and medial weight-bearing portion of distal tibial plafond measures 6 x 5 x 2 mm in size is seen. No osteochondral injuries of talar dome. No acute fracture or dislocation. Small amount of tibiotalar and subtalar joint effusion is noted, no loose bodies. Medial structures: The posterior tibialis and flexor digitorum longus tendons are mildly thickened at the level of mid to distal talus and talonavicular joint with small amount of fluid distending tendon sheath. The and flexor hallucis longus tendon is intact. The posterior tibial neurovascular bundle appears normal within the tarsal tunnel, without extrinsic mass effect. The deltoid ligament and spring ligament are intact. Lateral structures: The anterior talofibular, calcaneofibular, and posterior talofibular ligaments appear intact. More superiorly, the anterior and posterior tibiofibular ligaments appears thickened with subtle intrasubstance T2 hyperintense signal. The tibiofibular syndesmosis is normal in width at 2 mm or less. The peroneus longus and brevis tendons are mildly thickened with small amount of fluid distending peroneus tendon sheath at the level of lateral malleolus extending to their distal insertions. Fluid signal is noted and edema within sinus tarsi without discrete soft tissue mass. Anterior structures: The tibialis anterior, extensor hallucis longus, and extensor digitorum longus tendons appear intact. The dorsal talonavicular ligament appears intact. Posterior and plantar structures: Achilles tendon is intact. Thickened medial band of plantar fascia at its plantar calcaneal insertion is seen. No abductor digiti quinti muscle atrophy to suggest Self neuropathy. IMPRESSION: 1. Thickened medial band of plantar fascia at its calcaneal insertion. Well-defined plantar calcaneal enthesophyte with edema involving weight-bearing portion of posterior calcaneus. Finding is suggestive of low to moderate grade plantar fasciitis. 2. Mild midfoot and hindfoot joint osteoarthritis. Sub cm osteochondral injury involving distal tibial plafond. No osteochondral injuries of talar dome. No acute fracture or dislocation. Small joint effusion, no loose bodies. 3. Low-grade tenosynovitis involving posterior tibialis and flexor digitorum longus tendons at the level of distal talus and talonavicular joint. 4. Low to moderate grade tenosynovitis involving peroneus tendons at the level of lateral malleolus extending to their distal insertions. 5. Low-grade sprain involving anterior and posterior tibial fibular ligaments. No full-thickness ankle ligament rupture. 6. Edema and fluid signal within sinus tarsi suggest clinical correlation for sinus tarsi syndrome. Dictated by: Talon Nunn M.D. on 03/17/2024 at 16:41 Approved by: Talon Nunn M.D. on 03/17/2024 at 16:48
== END ==
PROVIDERS: PCP Family Medicine; Referring Provider Podiatrist; Visit Provider Podiatrist
DX: S93.431A Sprain of tibiofibular ligament of right ankle, initial encounter (principal); M19.071 Primary osteoarthritis, right ankle and foot; M79.671 Pain in right foot; M72.2 Plantar fascial fibromatosis; M76.71 Peroneal tendinitis, right leg; M77.31 Calcaneal spur, right foot; M25.474 Effusion, right foot; M65.871 Other synovitis and tenosynovitis, right ankle and foot
CPT/HCPCS: 73721

== ENCOUNTER → 2024-06-16 13:40 | Outpatient (CLI) | payer OTHER, SELFPAY ==
[2018-12-31 08:26] VITALS: BMI 22.8
== END ==
PROVIDERS: PCP Family Medicine; Referring Provider Internal Medicine; Visit Provider Internal Medicine
DX: Z23 Encounter for immunization (principal)
CPT/HCPCS: 90471; 90656

== ENCOUNTER → 2024-09-25 07:53 | Outpatient (CLI) | payer OTHER, SELFPAY ==
[2018-12-31 08:26] VITALS: BMI 22.8
[2024-09-25 08:08] LABS: Add Manual Diff / Slide Review NO; Basophils Absolute Auto 0 /uL (0-100); Basophils Percent Auto 0.4 % (0-2); Eosinophils Absolute Auto 200 /uL (0-450); Eosinophils Percent Auto 1.7 % (2-4); Hematocrit 42.2 % (36-46); Hemoglobin 14.2 g/dL (12.0-16.0); Lymphocytes Absolute Auto 2500 /uL (1100-4500); Lymphocytes Percent Auto 18.6 % (25-40); Mean Corpuscular HGB Conc 33.6 % (30-36); Mean Corpuscular Volume 92.4 fL (80-100); Monocytes Absolute Auto 800 /uL (0-900); Monocytes Percent Auto 5.6 % (3-14); Neutrophils Absolute Auto 10000 /uL (1500-7000); Neutrophils Percent Auto 73.7 % (50-75); Platelet Count 285 X10^3/uL (150-400); Red Blood Cell Count 4.57 X10^6/uL (4.0-5.2); White Blood Cell Count 13.5 X10^3/uL (4.5-11.0)
[2024-09-25 08:51] LABS: Alanine Aminotransferase 32 IU/L (<35); Albumin 4.4 g/dL (3.5-5.0); Albumin Globulin Ratio 1.9 (1.0-2.8); Alkaline Phosphatase 77 U/L (38-126); Aspartate Aminotransferase 34 IU/L (14-36); BUN Creatinine Ratio 27.5 (6-22); Bilirubin Total 0.5 mg/dL (0.2-1.3); Blood Urea Nitrogen 22 mg/dL (7-17); Calcium 9.3 mg/dL (8.4-10.2); Carbon Dioxide 25 mmol/L (22-32); Chloride 103 mmol/L (98-107); Estimated Glomerular Filt Rate > 60 mL/min (>60); Globulin 2.3 g/dL (1.7-4.1); Glucose 101 mg/dL (70-100); HEMOLYSIS < 15 (0-50); Lipase 179 U/L (23-300); Potassium 4.4 mmol/L (3.4-5.1); Sodium 136 mmol/L (137-145); Total Protein 6.7 g/dL (6.3-8.2)
[2024-09-25 09:19] LABS: Cortisol AM (Before 10AM) 11.8 ug/dL (4.46-22.7)
[2024-09-25 09:21] LABS: Testosterone 23.8 ng/dL (5.71-77.0)
[2024-09-25 09:22] LABS: Estradiol, Total 34.2 pg/mL
[2024-09-25 09:23] LABS: TSH w/ Reflex to FT4 0.05 uIU/mL (0.47-4.68)
[2024-09-25 09:52] LABS: Free T4, Direct Thyroxine 0.88 ng/dL (0.78-2.19)
== END ==
PROVIDERS: PCP Family Medicine; Referring Provider Family Medicine; Visit Provider Family Medicine
DX: R53.83 Other fatigue (principal); R89.1 Abnormal level of hormones in specimens from other organs, systems and tissues; Z79.890 Hormone replacement therapy; R61 Generalized hyperhidrosis
CPT/HCPCS: 36415; 80053; 82533; 82670; 83690; 84144; 84403; 84439; 84443; 85025

== ENCOUNTER → 2024-10-09 06:32 | Outpatient (CLI) | payer OTHER, SELFPAY ==
[2018-12-31 08:26] VITALS: BMI 22.8
[2024-10-09 06:55] LABS: Add Manual Diff / Slide Review NO; Basophils Absolute Auto 100 /uL (0-100); Basophils Percent Auto 0.5 % (0-2); Eosinophils Absolute Auto 200 /uL (0-450); Eosinophils Percent Auto 2.2 % (2-4); Hemoglobin 13.8 g/dL (12.0-16.0); Lymphocytes Absolute Auto 2400 /uL (1100-4500); Lymphocytes Percent Auto 21.6 % (25-40); Mean Corpuscular HGB Conc 33.7 % (30-36); Mean Corpuscular Hemoglobin 31.2 PG (26-34); Mean Corpuscular Volume 92.6 fL (80-100); Monocytes Absolute Auto 900 /uL (0-900); Neutrophils Absolute Auto 7500 /uL (1500-7000); Neutrophils Percent Auto 67.7 % (50-75); Platelet Count 272 X10^3/uL (150-400); Red Blood Cell Count 4.43 X10^6/uL (4.0-5.2); Red Cell Distribution Width 13.2 % (11.6-14.8); White Blood Cell Count 11.1 X10^3/uL (4.5-11.0)
[2024-10-09 07:10] LABS: Alanine Aminotransferase 35 IU/L (<35); Albumin 4.2 g/dL (3.5-5.0); Albumin Globulin Ratio 1.6 (1.0-2.8); Alkaline Phosphatase 80 U/L (38-126); Aspartate Aminotransferase 37 IU/L (14-36); BUN Creatinine Ratio 26.8 (6-22); Bilirubin Total 0.4 mg/dL (0.2-1.3); Blood Urea Nitrogen 22 mg/dL (7-17); Calcium 9.3 mg/dL (8.4-10.2); Carbon Dioxide 27 mmol/L (22-32); Chloride 104 mmol/L (98-107); Estimated Glomerular Filt Rate > 60 mL/min (>60); Globulin 2.7 g/dL (1.7-4.1); Glucose 106 mg/dL (70-100); HEMOLYSIS < 15 (0-50); Potassium 4.1 mmol/L (3.4-5.1); Sodium 136 mmol/L (137-145); Total Protein 6.9 g/dL (6.3-8.2)
[2024-10-09 07:23] LABS: HEMOLYSIS < 15 (0-50); Iron 59 ug/dL (37-170)
[2024-10-09 07:34] LABS: Percent Iron Saturation 20 % (15-50); Total Iron Binding Capacity 293 ug/dL (265-497); Transferrin 256 mg/dL (206-381)
[2024-10-09 07:55] LABS: TSH w/ Reflex to FT4 0.02 uIU/mL (0.47-4.68)
[2024-10-09 08:20] LABS: Free T4, Direct Thyroxine 0.85 ng/dL (0.78-2.19)
[2024-10-10 07:07] LABS: Thyroid Peroxidase Antibodies 12 IU/mL (0-34)
[2024-10-10 16:07] LABS: Anti Thyroglobulin Antibody <1.0 IU/mL (0.0-0.9)
== END ==
PROVIDERS: PCP Family Medicine; Referring Provider Family Medicine; Visit Provider Family Medicine
DX: R94.6 Abnormal results of thyroid function studies (principal); R53.82 Chronic fatigue, unspecified; D72.829 Elevated white blood cell count, unspecified; L65.9 Nonscarring hair loss, unspecified
CPT/HCPCS: 36415; 80053; 83540; 83550; 84439; 84443; 85025; 86376; 86800

== ENCOUNTER → 2024-10-20 11:54 | Outpatient (CLI) | payer OTHER, SELFPAY ==
[2018-12-31 08:26] VITALS: BMI 22.8
--- NOTE | 2024-10-20 11:55 | DI.US.S_ITS ---
PROCEDURE: US THYROID INDICATIONS: THYROTOXICOSIS TECHNIQUE: Real-time scanning was performed of the thyroid gland, with image documentation. COMPARISON: None. FINDINGS: Thyroid: Right lobe measures 5.1 x 1.7 x 1.6 cm. Left lobe measures 4.2 x 1.3 x 1.2 cm. Isthmus is 0.1 cm thick. Echotexture is minimally heterogeneous. There are no suspicious thyroid nodules IMPRESSION: No suspicious thyroid nodules. ACR TI-RADS definitions and recommendations: TI-RADS 1 (benign): 0 points. FNA not needed. TI-RADS 2 (not suspicious): 2 points. FNA not needed. TI-RADS 3: 3 points. * FNA if 2.5 cm or larger, follow up if 1.5 cm or larger (at 1, 3, and 5 years). TI-RADS 4: 4-6 points. * FNA if 1.5 cm or larger, follow up if 1 cm or larger (at 1, 2, 3, and 5 years). TI-RADS 5: 7 points or more. * FNA if 1 cm or larger, follow up if 0.5 cm or larger (every year for 5 years). Approved by: Sondra Tirado M.D.,Ph.D. on 10/21/2024 at 0:07
== END ==
LOC: US 11:55
PROVIDERS: PCP Family Medicine; Referring Provider Family Medicine; Visit Provider Family Medicine
DX: E05.90 Thyrotoxicosis, unspecified without thyrotoxic crisis or storm (principal)
CPT/HCPCS: 76536

== ENCOUNTER → 2024-11-07 06:37 | Outpatient (CLI) | payer OTHER, SELFPAY ==
[2018-12-31 08:26] VITALS: BMI 22.8
[2024-11-07 08:13] LABS: TSH w/ Reflex to FT4 1.04 uIU/mL (0.47-4.68)
== END ==
PROVIDERS: PCP Family Medicine; Referring Provider Family Medicine; Visit Provider Family Medicine
DX: R94.6 Abnormal results of thyroid function studies (principal); R53.82 Chronic fatigue, unspecified; D72.829 Elevated white blood cell count, unspecified; L65.9 Nonscarring hair loss, unspecified
CPT/HCPCS: 82642; 84443

== ENCOUNTER → 2025-01-23 06:28 | Outpatient (CLI) | payer OTHER, SELFPAY ==
[2018-12-31 08:26] VITALS: BMI 22.8
== END ==
PROVIDERS: PCP Family Medicine; Referring Provider Family Medicine; Visit Provider Family Medicine
DX: R10.0 Acute abdomen (principal); R19.4 Change in bowel habit
CPT/HCPCS: 86258; 86364

== ENCOUNTER 2025-05-31 06:08 | Emergency (ER) | payer OTHER, SELFPAY ==
[2018-12-31 08:26] VITALS: BMI 22.8
[2025-05-31 06:13] VITALS: BP 121/61; PULSE 88; RESP 16; TEMP 36.6; O2SAT 97; BMI 25.7
--- NOTE | 2025-05-31 06:16 | DI.RAD.S_ITS ---
PROCEDURE: XR CHEST 2V INDICATIONS: shortness of breath TECHNIQUE: 2 views of the chest were acquired. COMPARISON: None. FINDINGS: Surgical changes and devices: None. Lungs and pleura: Lungs are clear. No pleural effusions or pneumothorax. Mediastinum: Mediastinal contours are normal. Heart size is normal. Bones and chest wall: Soft tissues appear normal. Mild multilevel degenerative disease of the thoracic spine noted. IMPRESSION: No acute cardiopulmonary abnormality is seen. Dictated by: Kecia Clemons M.D. on 05/31/2025 at 8:23 Approved by: Kecia Clemons M.D. on 05/31/2025 at 8:27
--- NOTE | 2025-05-31 06:20 | ED.SOB ---
HPI - SOB/Dyspnea General Chief Complaint: Shortness of Breath/Dyspnea Stated Complaint: SOB Time Seen by Provider: 05/31/25 06:19 Source: patient Mode of arrival: Ambulatory Limitations: no limitations History of Present Illness HPI Narrative: 49-year-old female smoker presents with initial sinus congestion for the past few days that has since led to her with cough and shortness of breath for which she has used her son's inhaler prior to arrival with some relief of her symptoms. Patient denies nausea, vomiting, diarrhea, headache, changes in vision, neck pain, rash, fever, chills, bodyaches, sore throat, earache, chest pain, dyspnea on exertion, leg pain, leg swelling, or sick contacts. Other than what is stated 14 point review of system is negative. Related Data Previous Rx's ?Medication ?Instructions ?Recorded albuterol sulfate 90 mcg/actuation 2 inh inhalation Q4-6H PRN 05/31/25 breath activated powder inhaler shortness of breath or wheezing #1 ea azithromycin 250 mg tablet 250 mg PO DAILY 4 days #4 tabs 05/31/25 cefpodoxime 200 mg tablet 200 mg PO Q12H #14 tabs 05/31/25 Allergies Allergy/AdvReac Type Severity Reaction Status Date / Time Penicillins Allergy Intermediate Verified 05/31/25 06:13 prednisone Allergy Intermediate Verified 05/31/25 06:13 morphine Allergy Verified 05/31/25 06:13 Review of Systems Review of Systems ROS Unobtainable: All systems reviewed & are unremarkable except as noted in HPI and below Patient History Family History (Updated 12/31/18 @ 10:26 by Dina Bro MD) Sister Ulcerative colitis Social History household members: spouse and children Smoking Status: Current some day smoker alcohol intake: current Smoking Status: Current some day smoker alcohol intake frequency: holidays/special occasions only Exam Narrative Exam Narrative: GENERAL: [49] year old patient appears stated age. Well-developed patient, in mild distress. HEAD: Atraumatic. Normocephalic. EYES: Pupils equal round and reactive. Extraocular motions intact. No scleral icterus. No injection or drainage. ENT: Nose without bleeding, purulent drainage. Throat without erythema, tonsillar hypertrophy or exudate. Airway patent. NECK: Trachea midline. Non tender CARDIOVASCULAR: Regular rate and rhythm without murmurs, gallops, or rubs. RESPIRATORY: Coarse rhonchi right lung base GASTROINTESTINAL: Abdomen soft, non-tender, nondistended. EXTREMITIES: No edema or joint tenderness. BACK: Nontender without deformity or crepitance. No flank tenderness. NEURO: AOx3. SKIN: No rash or erythema of visible areas Initial Vital Signs Initial Vital Signs: Vital Signs Temperature 97.9 F 05/31/25 06:13 Pulse Rate 88 05/31/25 06:13 Respiratory Rate 16 05/31/25 06:13 Blood Pressure 121/61 05/31/25 06:13 Pulse Oximetry 97 05/31/25 06:13 Oxygen Delivery Method Room Air 05/31/25 06:13 Course Orders Ordered: Discontinued Medications Albuterol/Ipratropium (Albuterol/Ipratropium 3 Ml Ampul) 3 ml INH NOW ONE Stop: 05/31/25 06:25 Last Admin: 05/31/25 06:29 Dose: 3 ml Documented By: Azithromycin (Azithromycin 250 Mg Tablet) 500 mg PO NOW ONE Stop: 05/31/25 06:30 Last Admin: 05/31/25 06:37 Dose: 500 mg Documented By: ELOY Vital Signs Vital signs: Vital Signs - 8 hr 05/31/25 06:13 Temperature 97.9 F Pulse Rate 88 Respiratory Rate 16 Blood Pressure 121/61 Pulse Oximetry 97 Oxygen Delivery Method Room Air MDM - SOB/Dyspnea Imaging Data Chest x-ray: Radiologist's Impression: No acute cardiopulmonary process MDM Narrative Medical decision making narrative: Vital signs, nurse triage note, medication list, previous ER visits, and all imaging studies reviewed. CXR reviewed did not show any acute process. DuoNeb treatment and azithromycin given here in ER. DC home on Cefpodoxime, zpack and albuterol inhaler. Differential diagnosis include pneumonia, asthmatic bronchitis, COVID, RSV, flu, bacterial sinusitis. Discharge Plan Departure Patient Disposition: Home Clinical Impression: Pneumonia Qualifiers: Pneumonia type: due to Pneumococcus Laterality: right Lung location: lower lobe of lung Qualified Code(s): J13 - Pneumonia due to Streptococcus pneumoniae Instructions: DI for Pneumonia -- Adult Activity Restrictions/Additional Instructions: Return with new or worsening symptoms. Take your medicines as directed. Follow up with PCP in 1-2 weeks if no improvement in symptoms. Prescriptions: New cefpodoxime 200 mg tablet 200 mg PO Q12H Qty: 14 0RF Rx Instructions: must administer with a meal/food azithromycin 250 mg tablet 250 mg PO DAILY 4 Days Qty: 4 0RF albuterol sulfate 90 mcg/actuation aerosol powdr breath activated 2 inh inhalation Q4-6H PRN (Reason: shortness of breath or wheezing) Qty: 1 0RF Referrals: Supriya Bullock DO [Primary Care Provider, Medical] Stand Alone Forms: Patient Portal/API, Work Release Note
[2025-05-31] MEDS: ALBUTEROL/IPRATROPIUM 3 ML AMPUL INH (06:29)
[2025-05-31 06:30] VITALS: PULSE 80; RESP 16; O2SAT 100
[2025-05-31] MEDS: AZITHROMYCIN 250 MG TABLET 500 MG PO (06:37)
== END 2025-05-31 06:45 | disposition home or self-care (01) ==
PROVIDERS: Emergency Provider Family Medicine; PCP Family Medicine
DX: J13 Pneumonia due to Streptococcus pneumoniae (principal)
CPT/HCPCS: 71046; 99283

== ENCOUNTER → 2025-07-31 08:14 | Outpatient (ROUT) | payer OTHER, SELFPAY ==
[2018-12-31 08:26] VITALS: BMI 22.8
== END ==
PROVIDERS: PCP Family Medicine
DX: E83.119 Hemochromatosis, unspecified (principal); R94.01 Abnormal electroencephalogram [EEG]
CPT/HCPCS: 36415; 81256